=== PATIENT | male | born 1930 | race Caucasian/White ===

== ENCOUNTER 2017-09-13 13:18 | Emergency (ER) | payer MEDICARE, BC ==
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
== END 2017-09-13 15:18 | disposition home or self-care (01) ==
LOC: SCSER 13:18
DX: S00.531A Contusion of lip, initial encounter (principal); E78.5 Hyperlipidemia, unspecified; Z79.899 Other long term (current) drug therapy; Z79.82 Long term (current) use of aspirin; W22.8XXA Striking against or struck by other objects, initial encounter
CPT/HCPCS: 70450; 70486

== ENCOUNTER 2018-01-19 09:44 | Outpatient (CLI) | payer MEDICARE, BC ==
--- NOTE | 2018-01-19 13:04 | ULT ---
RIGHT LOWER EXTREMITY VENOUS DUPLEX ULTRASOUND INCLUDING COLOR AND SPECTRAL DOPPLER IMAGING: HISTORY: An 88-year-old male with a history of right lower extremity edema and pain. Focal area of pain in the medial mid calf. FINDINGS: Exam performed from groin to ankle including visualized greater saphenous, common femoral, superficia l femoral, profunda femoral, popliteal, trifurcation, or posterior tibial vein regions. There is pha sic flow at all levels with normal compressibility and normal augmentation. No intraluminal thrombus . There is a focal area in the medial right calf of abnormal heterogeneous mixed echogenicity measur ing approximately 1.5 x 0.9 x 3.8 cm. This is nonspecific and could represent a hematoma or other co mplicated focal collection. This could conceivably represent a complicated ruptured Fox's or popli teal cyst. Some other type of soft tissue mass, however, cannot be excluded from this study. IMPRESSION: No evidence for deep venous thrombosis. Mixed echogenic not true cystic mass in the medial right steven f corresponding to the area of pain. Focal hematoma or possibly complicated ruptured Fox's or popl iteal cysts are considered likely possibilities. A solid soft tissue mass cannot be totally excluded . If this mass does not improve or resolve in the short term, I would suggest a followup MRI with an d without IV contrast for further assessment of this. POS: [facility]
== END 2018-01-19 09:45 | disposition home or self-care (01) ==
LOC: ULT 09:44
PROVIDERS: ATTEND Pediatrics Pediatric Rheumatology
DX: M79.604 Pain in right leg (principal); M79.89 Other specified soft tissue disorders

== ENCOUNTER 2018-07-05 11:10 | Observation (INO) | payer MEDICARE, BC ==
[2018-07-05] MEDS ORDERED: Ondansetron HCl/PF 4 MG/2 ML Vial IVP PRN (12:45)
[2018-07-05 12:47] VITALS: BMI 22.0
[2018-07-05] MEDS: Diltiazem HCl 125 MG, Admixture Fee 1 EACH in Sodium Chloride 0.9% 100 ML IVPB SCH (13:52)
[2018-07-05] MEDS ORDERED: Enoxaparin Sodium 80 MG/0.8 ML SYRINGE SC SCH (14:00)
[2018-07-05 16:40] LABS: #Eosinphils 0.1 thou/uL (0.0-0.7); #Lymphocytes 1.9 thou/uL (1.20-3.40); #Monocytes 0.6 thou/uL (0.11-0.59); #Neutrophils 3.3 thou/uL (1.40-6.50); %Basophils 0.6 % (0.0-1.0); %Eosinophils 2.2 % (0.0-10.0); %Lymphocytes 31.4 % (21.0-51.0); %Monocytes 10.7 % (0.0-10.0); %Neutrophils 55.1 % (42.0-75.0); Hemoglobin 11.8 g/dL (14.0-18.0); Mean Corpuscular Hemoglobin 29.5 pg (27.0-31.0); Mean Corpuscular Volume 92.4 fL (78.0-98.0); Mean Platelet Volume 8.8 fL (7.4-10.4); Platelet Count 156 thou/uL (130-400); RBC Distribution Width 13.1 % (11.5-14.5)
--- NOTE | 2018-07-05 18:45 | RAD ---
2 VIEWS CHEST: Date: 07/05/18 PROVIDED CLINICAL HISTORY: SVT. FINDINGS: Comparison made with study dated 10/11/14. Cardiac and mediastinal silhouette is within normal limits. Lungs appear clear. No pleural fluid or p neumothorax apparent. Median sternotomy changes are seen. IMPRESSION: No evidence for an acute cardiopulmonary process. POS: [facility]
--- NOTE | 2018-07-05 22:29 | CON ---
DATE OF CONSULTATION: 07/05/2018 REFERRING PHYSICIAN: Shalom Auguste M.D. REASON FOR CONSULTATION: Atrial flutter with rapid ventricular response. HISTORY OF PRESENT ILLNESS: Mr. Vasquez is the patient that has been known to our practice in the p ast for typical atrial flutter, in addition to premature ventricular contractions originating from th e left coronary cusp. He underwent CTI ablation for typical atrial flutter in 03/2016 in addition to PVC ablation at that time. He had a short 1-month course of anticoagulation following ablation and was then taken off oral anticoagulation. He was last evaluated in our clinic in 2015 following his a blation. Earlier today, he was seen by Dr. Auguste in his clinic. He reports that he has been exp eriencing heart racing, palpitations since middle of the night today. He continues to feel some hear t racing and palpitation now as his heart rate sustained at approximately 130-140 beats per minute. He denies any associated chest pain, syncope, near syncope, stroke or stroke-like symptoms. He is cu rrently just on aspirin for stroke prophylaxis. PAST MEDICAL HISTORY: 1. Coronary artery disease, status post 4-vessel bypass grafting performed in 2007. 2. Typical CTI dependent atrial flutter, status post CTI ablation in 03/2016. 3. History of frequent premature ventricular contractions originating from the left coronary cusp st atus post PVC ablation in 03/2016. 4. Hypertension. 5. Dyslipidemia. ALLERGIES: CIPROFLOXACIN, PENICILLIN, STATINS and SULFA ANTIBIOTICS. CURRENT MEDICATIONS: Medication list is currently being requested from the clinic. Patient recalls that he takes aspirin 81 mg daily, but otherwise medication list is not available. FAMILY HISTORY: Negative for sudden cardiac or early onset coronary artery disease. SOCIAL HISTORY: Negative for alcohol, tobacco or illicit drug use. REVIEW OF SYSTEMS: A 12-point review of systems was conducted and is negative except that listed abo ve in the HPI. PHYSICAL EXAMINATION: VITAL SIGNS: Most recent vital signs include temperature 97.8, pulse 134, blood pressure 135/82, res piration is 18, oxygen is 96% on room air. GENERAL: This is a well-appearing, well-groomed, elderly gentleman who appears much younger than his stated age. He is in no apparent distress. He is alert and oriented. His speech is clear. SKIN: Appropriate. NECK: Supple without jugular venous distention. HEART: Rate is rapid and irregular. His PMI is nondisplaced. LUNGS: Clear to auscultation bilaterally without wheezes, crackles or rhonchi. ABDOMEN: Soft, nontender without palpable masses. Hepatojugular reflex is negative. EXTREMITIES: Warm and dry to touch without clubbing, cyanosis or edema. NEUROLOGIC: Nonfocal and grossly intact. DATABASE: Telemetry and EKGs were all personally reviewed reveal what appears to be atypical flutter or coarse atrial fibrillation with ventricular rate of 130-140 beats per minute. Diltiazem drip has been ordered for rate control. LABORATORY DATA: Hematology was reviewed and hemoglobin is slightly low at 11.8, but otherwise unrem arkable. No additional testing has been performed. IMPRESSION: 1. Atrial fibrillation with rapid ventricular rate 130-140 beats per minute, now on diltiazem drip w ith improved rate control with rates in the 80-beat per minute range, symptomatic with heart racing a nd palpitations. 2. Elevated CHADS-VASc score of 4 on the basis of advanced age, vascular disease and hypertension, c urrently only on aspirin for stroke prophylaxis. He has been on Xarelto in the past, which caused no sebleeds, so at this time, we will assess renal function and then recommend initiating Eliquis based on his creatinine. RECOMMENDATIONS: At this point, we find Mr. Vasquez presenting with new atrial arrhythmias. This d oes not appear to be a return of his typical atrial flutter which he has had ablated in the past. EK Gs and telemetry suggest coarse atrial fibrillation and possibly atypical flutter that definitely is coarse atrial fibrillation once his rate slowed on diltiazem. Short term recommendations include ini tiating oral anticoagulation once his kidney function has been resolved as mentioned above. Once his kidney function has been addressed as mentioned above and WILLIAN cardioversion in the near future to re store sinus rhythm and his symptoms. He may require antiarrhythmic therapy in the future for recurre nce and possibly left atrial ablation. Ablation options can be addressed with antiarrhythmic therapy failure and on an outpatient basis. If he does not tolerate his oral anticoagulation and has signif icant bleeding issues, we could discuss Watchman with him. He did only have minor nosebleeds in the past on Xarelto, so we will leave that this will hopefully not be an issue on Eliquis. Thank you for allowing us to participate in the care of this patient. I have discussed this with Dr. Auguste and he is currently arranging for WILLIAN cardioversion tomorrow with Dr. Auguste. The concha ent is n.p.o. after midnight.
[2018-07-06] MEDS: Diltiazem HCl 125 MG, Admixture Fee 1 EACH in Sodium Chloride 0.9% 100 ML IVPB SCH (04:48)
[2018-07-06] MEDS ORDERED: Diltiazem HCl 125 MG, Admixture Fee 1 EACH in Sodium Chloride 0.9% 100 ML IVPB SCH (05:35)
[2018-07-06 05:47] LABS: Anion Gap 11 mmol/L (10-20); BUN (Urea Nitrogen) 18 mg/dL (8.4-25.7); Calc. Creatinine Clearance 53 mL/min (70-130); Calcium 9.6 mg/dL (7.8-10.44); Carbon Dioxide 27 mmol/L (23-31); Chloride 105 mmol/L (98-107); Estimated GFR-MDRD 77; Glucose 89 mg/dL (83-110); Potassium 4.3 mmol/L (3.5-5.1); Sodium 139 mmol/L (136-145)
[2018-07-06] MEDS ORDERED: Dronedarone HCl 400 MG TAB PO SCH ×2 (07:15→21:00)
[2018-07-06 08:09] VITALS: TEMP 97.6
[2018-07-06] MEDS ORDERED: Aspirin 81 mg Enteric Coated Tablet PO SCH (09:00)
[2018-07-06] MEDS ORDERED: Ezetimibe 10 MG TAB PO SCH (09:00)
[2018-07-06] MEDS ORDERED: Apixaban 5 MG TAB PO SCH (09:00)
[2018-07-06] MEDS ORDERED: PROPOFOL 200 MG/20 ML VIAL ONE (09:49)
[2018-07-06] MEDS ORDERED: PROPOFOL 20 ML ONE (10:14)
--- NOTE | 2018-07-06 10:24 | PRG ---
DATE OF SERVICE: 07/06/2018 SUBJECTIVE: Mr. Vasquez seems to be doing well today, but still has palpitations and mild dizziness on diltiazem drip. The heart rate is slightly better, but still rapid. No chest pains. No passing out. No stroke-like symptoms. OBJECTIVE: VITAL SIGNS: Blood pressure is 107/81, heart rate 139, respiration 16, temperature 97.3 degrees Fahrenheit. GENERAL: Alert and oriented man in no apparent distress. NECK: Supple. Jugular veins are distended. CHEST: Coarse without crackles. CARDIOVASCULAR: Heart sounds are irregularly irregular. S1, S2, variable. No murmur or gallop. ABDOMEN: Benign. Bowel sounds positive. EXTREMITIES: Lower extremity without edema, clubbing or cyanosis. DATABASE: The EKG, telemetry shows coarse atrial fibrillation, atypical flutter with rapid ventricular rates. ASSESSMENT AND PLAN: Mr. Vasquez is a pleasant 88-year-old man with a history of prior cavotricuspid isthmus ablation in 2016. Also, PVCs were ablated also at that time. Now he developed atrial arrhythmia, which appears to be atypical flutter/coarse atrial fibrillation. He required diltiazem for rate control, it is still suboptimal. He is not on anticoagulation. PLAN: At this point: 1. Add oral anticoagulation. 2. WILLIAN guided cardioversion planned for today. 3. If recurrent arrhythmia seen after that,consider anti arrhythmic agents, possibly Multaq versus sotalol depending on the lack or absence of structural heart disease. 4. We will follow with you as an outpatient. KEN
[2018-07-06 12:04] VITALS: BP 144/62
[2018-07-06] MEDS ORDERED: Amlodipine 5 MG TAB PO SCH (21:00)
--- NOTE | 2018-07-08 20:56 | EKG ---
Test Reason : Blood Pressure : / mmHG Vent. Rate : 080 BPM Atrial Rate : 084 BPM P-R Int : 000 ms QRS Dur : 084 ms QT Int : 376 ms P-R-T Axes : 000 -21 053 degrees QTc Int : 433 ms Atrial fibrillation Abnormal ECG When compared with ECG of 02-JUL-2008 11:25, Atrial fibrillation has replaced Sinus rhythm Questionable change in QRS axis QT has shortened Confirmed by Newton CHUNG ([id number]) on 07/08/2018 8:56:10 PM Referred By: [facility] Confirmed By:Newton CHUNG
--- NOTE | 2018-07-08 21:10 | EKG ---
Test Reason : Blood Pressure : / mmHG Vent. Rate : 110 BPM Atrial Rate : 104 BPM P-R Int : 000 ms QRS Dur : 084 ms QT Int : 294 ms P-R-T Axes : 000 -23 113 degrees QTc Int : 397 ms Atrial fibrillation with rapid ventricular response Nonspecific ST and T wave abnormality , probably digitalis effect Abnormal ECG When compared with ECG of 06-JUL-2018 07:16, (Unconfirmed) No significant change was found Confirmed by Newton CHUNG ([id number]) on 07/08/2018 9:09:57 PM Referred By: LARRY Confirmed By:Newton CHUNG
--- NOTE | 2018-07-08 21:10 | EKG ---
Test Reason : Blood Pressure : / mmHG Vent. Rate : 091 BPM Atrial Rate : 340 BPM P-R Int : 000 ms QRS Dur : 084 ms QT Int : 342 ms P-R-T Axes : 000 -28 076 degrees QTc Int : 420 ms Atrial fibrillation Abnormal ECG When compared with ECG of 05-JUL-2018 14:43, (Unconfirmed) No significant change was found Confirmed by Newton CHUNG ([id number]) on 07/08/2018 9:09:51 PM Referred By: LARRY Confirmed By:Newton CHUNG
--- NOTE | 2018-07-08 21:14 | EKG ---
Test Reason : POST CARDIOVERSION Blood Pressure : / mmHG Vent. Rate : 063 BPM Atrial Rate : 063 BPM P-R Int : 214 ms QRS Dur : 084 ms QT Int : 418 ms P-R-T Axes : 068 -22 000 degrees QTc Int : 427 ms Sinus rhythm with marked sinus arrhythmia with 1st degree A-V block Otherwise normal ECG When compared with ECG of 06-JUL-2018 07:17, (Unconfirmed) Sinus rhythm has replaced Atrial fibrillation Vent. rate has decreased BY [address] no longer depressed in Anterior leads Nonspecific T wave abnormality now evident in Inferior leads Confirmed by Newton CHUNG ([id number]) on 07/08/2018 9:13:47 PM Referred By: LARRY Confirmed By:Newton CHUNG
--- NOTE | 2018-07-09 14:47 | DIS ---
DATE OF ADMISSION: 07/05/2018 DATE OF DISCHARGE: 07/06/2018 DISCHARGE DIAGNOSIS: Atrial fibrillation. 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 He was found to have new onset atrial fibrillation. He has a previous his tory of underlying coronary artery disease. His heart rate was in the 120s and 130s. He was subsequently admitted. He was placed on IV Cardizem. There was difficulty in controlling his rate overnight. We started to proceed with cardioversion. This was successfully performed on 07/06. He underwent WILLIAN and cardioversion at 200 joules. He was discharged in stable condition. DISCHARGE MEDICATIONS: Zetia 10 q.a.m., aspirin 81 daily, amlodipine 5 daily, abciximab 5 mg b.i.d., Multaq 400 b.i.d. and metoprolol 25 daily. CONDITION AT DISCHARGE: Stable.
--- NOTE | 2018-07-16 09:02 | ECHO ---
CARDIOLOGY PROCEDURE NOTE: Date: 07/06/18 PROCEDURE: Transesophageal echocardiogram. INDICATION FOR PROCEDURE: Atrial fibrillation. PROCEDURE IN DETAIL: I discussed the procedure in full detail with Mr. Vasquez. Risks of the procedure include, but are n ot limited to, the following: damage to teeth, mouth, back of the esophagus. All questions were answe red. WILLIAN performed successfully under propofol sedation. The probe passed easily into the esophagus. FINDINGS: Overall LVEF estimated at 50-55%. Left atrial appendage well visualized with no thrombus present. IMPRESSION: No thrombus present within the left atrial appendage.
--- NOTE | 2018-07-16 09:05 | OP ---
CARDIOLOGY PROCEDURE NOTE: Date: 07/06/18 PROCEDURE: Cardioversion. PREPROCEDURE DIAGNOSIS: Atrial fibrillation. POSTPROCEDURE DIAGNOSIS: Sinus rhythm. PROCEDURE IN DETAIL: Patient was consented for the procedure. I discussed the procedure in full detail. The risks of the p rocedure include, but are not limited to, the following: Stroke, need for repeat cardioversion, fail ed cardioversion as well as burning of skin. All questions were answered. Patient underwent successful synchronized cardioversion under propofol sedation at 150 and 200 joules . IMPRESSION: Successful synchronized cardioversion at 200 joules.
== END 2018-07-06 15:28 | disposition home or self-care (01) ==
LOC: 2SW 11:25
PROVIDERS: ADMIT Internal Medicine Cardiovascular Disease; ATTEND Internal Medicine Cardiovascular Disease
PROC: 5A2204Z Restoration of Cardiac Rhythm, Single (ICD-10-PCS; principal; 2018-07-06)
PROC: B24BZZ4 Ultrasonography of Heart with Aorta, Transesophageal (ICD-10-PCS; 2018-07-06)
DX: I48.91 Unspecified atrial fibrillation (principal); I47.2 Ventricular tachycardia; I48.4 Atypical atrial flutter; I10 Essential (primary) hypertension; E78.5 Hyperlipidemia, unspecified; I25.10 Atherosclerotic heart disease of native coronary artery without angina pectoris; Z79.82 Long term (current) use of aspirin; Z79.899 Other long term (current) drug therapy; Z88.0 Allergy status to penicillin; Z88.1 Allergy status to other antibiotic agents; Z88.2 Allergy status to sulfonamides; Z88.8 Allergy status to other drugs, medicaments and biological substances; Z95.1 Presence of aortocoronary bypass graft
CPT/HCPCS: 71046; 80048; 85025; 92960; 93005 ×3; 93312; 96365; 96366 ×2; 96372; 96376; G0378; G0379; 36415; 93010; J1650; J2704; J7050

== ENCOUNTER 2019-02-14 06:27 | Day surgery (SDC) | payer MEDICARE, BC ==
[2019-02-13 08:54] VITALS: BMI 22.8
[2019-02-14] MEDS ORDERED: Lidocaine 1% PF 5 ML VIAL ONE ×2 (06:55→16:26)
[2019-02-14] MEDS ORDERED: PROPOFOL 20 ML ONE (06:55)
[2019-02-14] MEDS ORDERED: PROPOFOL 200 MG/20 ML VIAL ONE (16:26)
--- NOTE | 2019-02-14 19:11 | EKG ---
Test Reason : POT CARDIOVERSION Blood Pressure : / mmHG Vent. Rate : 046 BPM Atrial Rate : 077 BPM P-R Int : 000 ms QRS Dur : 082 ms QT Int : 442 ms P-R-T Axes : 000 -30 260 degrees QTc Int : 386 ms marked sinus bradycardia with sinus pauses Left axis deviation Abnormal ECG When compared with ECG of 06-JUL-2018 11:38, Atrial fibrillation has replaced Sinus rhythm T wave inversion now evident in Inferior leads T wave inversion now evident in Anterolateral leads Confirmed by DR. Yaneth LOREDO ([id number]) on 02/14/2019 7:10:34 PM Referred By: LARRY Confirmed By:DR. Yaneth LOREDO
--- NOTE | 2019-02-14 19:13 | EKG ---
Test Reason : POT CARDIOVERSION Blood Pressure : / mmHG Vent. Rate : 056 BPM Atrial Rate : 042 BPM P-R Int : 000 ms QRS Dur : 082 ms QT Int : 416 ms P-R-T Axes : 000 -31 249 degrees QTc Int : 401 ms marked sinus bradycardia sinus arrhythmia and sinus pauses Left axis deviation Abnormal ECG When compared with ECG of 14-FEB-2019 08:49, (Unconfirmed) No significant change was found Confirmed by DR. Yaneth LOREDO ([id number]) on 02/14/2019 7:12:48 PM Referred By: LARRY Confirmed By:DR. Yaneth LOREDO
--- NOTE | 2019-02-15 13:24 | OP ---
DATE OF PROCEDURE: 02/14/2019 PREPROCEDURE DIAGNOSIS: Atrial fibrillation. POSTPROCEDURE DIAGNOSIS: Sinus rhythm. PROCEDURE PERFORMED: Synchronized cardioversion. The patient was consented for the procedure. Propofol used for conscious sedation. FINDINGS: The patient underwent successful synchronized cardioversion of 150 joules. IMPRESSION: Successful synchronized cardioversion at 150 joules. Job ID: [id number]
== END 2019-02-14 10:40 | disposition home or self-care (01) ==
LOC: CCL 06:27
PROVIDERS: ATTEND Internal Medicine Cardiovascular Disease
PROC: 5A2204Z Restoration of Cardiac Rhythm, Single (ICD-10-PCS; principal; 2019-02-14)
DX: I48.0 Paroxysmal atrial fibrillation (principal); I48.92 Unspecified atrial flutter; I10 Essential (primary) hypertension; I25.10 Atherosclerotic heart disease of native coronary artery without angina pectoris; Z95.1 Presence of aortocoronary bypass graft; Z87.891 Personal history of nicotine dependence; Z88.1 Allergy status to other antibiotic agents; Z88.0 Allergy status to penicillin; Z88.2 Allergy status to sulfonamides; Z88.8 Allergy status to other drugs, medicaments and biological substances; Z79.01 Long term (current) use of anticoagulants; Z79.82 Long term (current) use of aspirin; Z79.899 Other long term (current) drug therapy
CPT/HCPCS: 92960; 93005; 93010; J2001; J2704

== ENCOUNTER 2019-04-05 14:04 | Outpatient (CLI) | payer MEDICARE, BC ==
--- NOTE | 2019-04-05 15:31 | CT ---
EXAM: CT Abdomen Pelvis W WO con PROVIDED CLINICAL HISTORY: Hematuria for 4 days. COMPARISON: None FINDINGS: There is linear bibasilar densities likely due to atelectasis and/or mild scarring. Median sternotomy wires are seen. The heart is mildly enlarged. Vascular calcifications are seen in the coronary arteries as well as in volving the abdominal aorta and iliac arteries. Multiple subcentimeter too small to characterize hypodense lesions are seen in each lobe of the liver . Largest hypodense lesion is seen in the left hepatic lobe measuring 2.2 cm which does demonstrate fluid attenuation. Findings are likely attributable to multiple hepatic cysts, but cystic metastatic disease cannot be entirely excluded based on this exam. The gallbladder is decompressed, but a gallbladder calculus is present. There are subcentimeter too small to characterize hypodense lesions in each kidney with larger hypode nse lesions also seen in each kidney demonstrating attenuation coefficients most compatible with cysts. Largest cyst inferior pole left kidney measures 1.7 cm with the largest cyst in the inferior p ole right kidney measuring 1.6 cm. No enhancing renal mass is visualized. No renal or ureteral calculi are seen bilaterally, and there is no hydronephrosis. No filling defect is seen within the renal collecting systems or either ureter on this exam. The urinary bladder is partially distended and has a grossly normal CT appearance. The spleen, pancreas, and bilateral adrenal glands demonstrate a normal CT appearance. No free fluid, fluid collection, or lymphadenopathy is seen in the abdomen or pelvis. Loops of small bowel are normal in caliber. The appendix is visualized and normal in caliber. Prostate gland is heterogeneous in appearance. There is a 1.3 cm low-density focus is present in the most inferior aspect right prostate gland and a periurethral location. Multilevel degenerative changes are seen in the spine. IMPRESSION: 1. Subcentimeter too small to characterize hypodense bilateral renal lesions in addition to bilateral renal cysts. No enhancing renal lesion is seen in either kidney. 2. No renal or ureteral calculi are seen bilaterally, and there is no hydronephrosis. 3. Subcentimeter too small to characterize hypodense lesions in each lobe of the liver with slightly larger hypodense lesions in the left hepatic lobe demonstrating attenuation coefficients compatible with cysts. Findings may be related to multiple hepatic cysts. However, given multiplicity, cystic me tastatic disease cannot be entirely excluded based on this exam especially in a patient with history of neoplasm. 4. Low-density structure in a right periurethral location at the level of the inferior aspect prostat e gland or just inferior to the prostate gland. This may represent a urethral diverticulum or periurethral cyst. This is difficult to further delineate on this exam. MRI pelvis may be helpful for further evaluation.
== END 2019-04-05 14:05 | disposition home or self-care (01) ==
LOC: SCSCT 14:04
PROVIDERS: ATTEND Urology
DX: R31.0 Gross hematuria (principal); N28.1 Cyst of kidney, acquired; N28.89 Other specified disorders of kidney and ureter; K76.9 Liver disease, unspecified
CPT/HCPCS: 74178; 82565

== ENCOUNTER 2019-06-30 04:24 | Inpatient (IN) | payer MEDICARE, BC ==
[2019-06-30] MEDS ORDERED: Diltiazem 125 MG/25 ML ONE (04:43)
[2019-06-30 04:56] LABS: #Lymphocytes 1.6 thou/uL (1.20-3.40); #Monocytes 0.8 thou/uL (0.11-0.59); #Neutrophils 5.8 thou/uL (1.40-6.50); %Basophils 0.4 % (0.0-1.0); %Lymphocytes 19.7 % (21.0-51.0); %Monocytes 9.9 % (0.0-10.0); %Neutrophils 70.1 % (42.0-75.0); Hemoglobin 12.3 g/dL (14.0-18.0); Mean Corpuscular Hemoglobin 28.3 pg (27.0-31.0); Mean Corpuscular Volume 88.5 fL (78.0-98.0); Mean Platelet Volume 9.4 fL (7.4-10.4); Platelet Count 195 thou/uL (130-400); RBC Distribution Width 14.7 % (11.5-14.5); Red Blood Cell (RBC) Count 4.35 mill/uL (4.70-6.10); White Blood Cell (WBC) Count 8.2 thou/uL (4.8-10.8)
[2019-06-30 04:59] LABS: INR-International Normal Ratio 1.7; PTT 31.9 SEC (22.9-36.1); Prothrombin Time 19.8 SEC (12.0-14.7)
[2019-06-30] MEDS ORDERED: Aspirin Chewable 81 MG TAB ONE (05:02)
[2019-06-30 05:08] LABS: ALT (SGPT) 23 U/L (8-55); AST (SGOT) 25 U/L (5-34); Albumin 3.7 g/dL (3.4-4.8); Alkaline Phosphatase 72 U/L (40-110); Anion Gap 18 mmol/L (10-20); BUN (Urea Nitrogen) 29 mg/dL (8.4-25.7); Bilirubin, Total 0.7 mg/dL (0.2-1.2); CK (CPK) 96 U/L (30-200); Calc. Creatinine Clearance 0 mL/min (70-130); Calcium 10.2 mg/dL (7.8-10.44); Carbon Dioxide 26 mmol/L (23-31); Chloride 98 mmol/L (98-107); Estimated GFR-MDRD 44; Globulin 5.5 g/dL (2.4-3.5); Glucose 127 mg/dL (83-110); Potassium 4.7 mmol/L (3.5-5.1); Protein, Total 9.2 g/dL (5.8-8.1); Sodium 137 mmol/L (136-145)
[2019-06-30 06:35] VITALS: BMI 24.0
[2019-06-30] MEDS ORDERED: Acetaminophen 325 MG TAB PO PRN (06:37)
[2019-06-30] MEDS ORDERED: Ondansetron ODT 4 MG TAB SL PRN (06:37)
[2019-06-30] MEDS ORDERED: Ondansetron PF 4 MG/2 ML Vial IVP PRN ×2 (06:37→07:05)
[2019-06-30] MEDS ORDERED: Diltiazem HCl 125 MG, Admixture Fee 1 EACH in Sodium Chloride 0.9% 100 ML IVPB SCH (06:45)
[2019-06-30] MEDS ORDERED: Loperamide HCl 2 MG CAP PO PRN (07:05)
[2019-06-30] MEDS ORDERED: Senokot S 8.6-50 MG TAB PO PRN (07:05)
[2019-06-30] MEDS ORDERED: Calcium Carbonate 500 MG ChewTAB PO PRN (07:05)
[2019-06-30] MEDS ORDERED: Zolpidem Tartrate 5 MG TAB PO PRN (07:05)
[2019-06-30] MEDS ORDERED: Labetalol HCl 100 MG/20 ML VIAL SLOW IVP PRN (07:05)
[2019-06-30] MEDS ORDERED: Bisacodyl 10 MG SUPP PR PRN (07:05)
[2019-06-30] MEDS ORDERED: Ondansetron ODT 4 MG TAB PO PRN (07:05)
[2019-06-30] MEDS ORDERED: HYDROcodone/Acetaminophen 5/325 mg Tablet PO PRN (07:05)
[2019-06-30] MEDS ORDERED: Cepastat Lozenges 1 LOZ PO PRN (07:05)
[2019-06-30] MEDS ORDERED: Sodium Chloride 0.65% Nasal 44 ML BOT EA NARE PRN (07:05)
[2019-06-30] MEDS ORDERED: Diabetic Tussin 200 MG/10 ML UDCUP PO PRN (07:05)
[2019-06-30] MEDS ORDERED: Artificial Tears 18 DROP/0.9 ML EA EYE PRN (07:05)
[2019-06-30] MEDS ORDERED: Loratadine 10 MG TAB PO PRN (07:05)
--- NOTE | 2019-06-30 07:59 | RAD ---
CHEST ONE VIEW: INDICATIONS: Chest pain. COMPARISON: Prior exam dated 07/05/2018 FINDINGS: There is cardiomegaly, pulmonary vascular congestion and small bilateral pleural effusions. No pneum othorax is evident. No acute osseous abnormality is evident. IMPRESSION: Findings suggesting mild congestive heart failure. POS: [facility]
[2019-06-30] MEDS: Apixaban 5 MG TAB PO SCH ×2 (09:36→20:29)
[2019-06-30] MEDS: Aspirin 81 mg Enteric Coated Tablet PO SCH (09:36)
[2019-06-30] MEDS: Famotidine 20 MG TAB PO SCH (09:36)
--- NOTE | 2019-06-30 11:09 | HP ---
PRIMARY CARE PHYSICIAN: Renae Moore MD PRIMARY ASPHALT RAKER: Shalom Auguste MD REASON FOR ADMISSION: Acute atrial fibrillation with rapid ventricular response. HISTORY OF PRESENT ILLNESS: An 89-year-old male, who has history of atrial fibrillation. He is on chronic anticoagulation therapy. The patient also had a cardioversion in March 2019. The patient followed up with Cardiology after cardioversion and the patient had a medication dose of Toprol-XL increased from 25 to 50 mg recently. Last night around 9:00 p.m., the patient was experiencing dizziness, palpitation, but he waited up until 4:30 a.m. He was not able to go to sleep. He was feeling shortness of breath, dizziness, disoriented and finally he agreed to come to emergency room for evaluation. He went to [facility] Emergency Room, where he was found with atrial fibrillation with rapid ventricular response. He was given Cardizem bolus, and Cardizem drip was started. His chest x-ray was suggestive of congestive heart failure and his BNP was also elevated. The patient reports that few days ago, he was having acute bronchitis and his primary care physician treated him with antibiotic therapy as well as steroid, which he finished yesterday. The patient still has cough productive of scant amount of sputum, but he does not have any fever. He occasionally feels wheezing. He does report dyspnea on exertion lately. He denies any orthopnea or PND or lower extremity swelling. The patient denies any fever or chills. He denies any diabetes history. He denies any previous history of stroke. REVIEW OF SYSTEMS: All review of systems reviewed with the patient and negative except as mentioned in the HPI. PAST MEDICAL HISTORY: Nephrolithiasis; coronary artery disease, required CABG; hypertension; paroxysmal atrial fibrillation; atrial flutter; hypothyroidism; and chronic anticoagulation. PAST SURGICAL HISTORY: CABG in 2008, transesophageal echocardiography and cardioversion in 2018 as well as in March 2019, and radiofrequency ablation for atrial flutter. PAST PSYCHIATRIC HISTORY: Reviewed and negative. FAMILY HISTORY: Positive for hypertension, stroke to his father. SOCIAL HISTORY: The patient is , lives at home with his . No history of tobacco, alcohol, or illicit drug abuse. ALLERGIES: THE PATIENT IS ALLERGIC TO PENICILLIN AND SULFA DRUGS. THE PATIENT IS ALSO NOT TOLERATING STATIN THERAPY. CURRENT HOME MEDICATIONS: 1. Aspirin 81 mg p.o. daily. 2. Eliquis 5 mg p.o. b.i.d. 3. Synthroid 50 mcg p.o. daily. 4. Toprol-XL 50 mg p.o. daily. EMERGENCY ROOM COURSE: The patient has received aspirin 324 mg, Cardizem bolus and Cardizem drip was started. PHYSICAL EXAMINATION: VITAL SIGNS: On arrival; blood pressure 175/85, pulse 145 and irregular, respiratory rate 20, temperature 97.8, and saturation 98% on room air. Weight 162 pounds. GENERAL: The patient is currently alert, awake, slightly hard of hearing. No obvious acute distress. HEENT: Head; normocephalic, atraumatic. Eyes; pupils are round and reactive to light. Extraocular muscle intact. ENT; oropharynx within normal limits. Moist mucous membranes. No oral lesion. No pharyngeal erythema. No exudate. NECK: Supple. No obvious JVD. No thyromegaly. No meningeal signs of irritation. LUNGS: Bilateral coarse breath sounds with few basal rales noted. CARDIAC: S1 and S2. Irregularly irregular. No murmur elicited. No gallop. No rub. ABDOMEN: Soft. Bowel sounds present. Nontender. Nondistended. No organomegaly. No mass. No suprapubic tenderness. BACK: Unremarkable. No CVA tenderness. EXTREMITIES: Upper extremities; passive movement of all joints are normal. Lower extremities; bilateral trace lower extremity pitting edema noted. Good distal pulsation. SKIN: No skin rash. HEMATOLOGICAL SYSTEM: No lymphadenopathy. NEUROLOGIC: Nonfocal examination. SIGNIFICANT LABORATORY DATA: EKG showing atrial fibrillation with rapid ventricular response. Left axis deviation. Chest x-ray showing pulmonary vascular congestion. CBC; WBC 8.2, hemoglobin 12.3, and platelet 195. INR 1.7. BMP; sodium 137, potassium 4.7, chloride 98, carbon dioxide 26, BUN 29, creatinine 1.49, glucose 127, and calcium 10.2. LFT; AST 25, ALT 23, alkaline phosphatase 72, albumin 3.7. BNP 1131. Troponin negative, less than 0.010. CK 96. ASSESSMENT AND PLAN: 1. Paroxysmal atrial fibrillation with rapid ventricular response. The patient still in atrial fibrillation with rapid ventricular response. We will continue Cardizem drip at 5 mg/hour. Cardiology will be consulted. We will obtain echocardiography for structural and functional evaluation. We will also resume Toprol-XL 50 mg p.o. daily. We will also continue chronic anticoagulation with Eliquis 5 mg p.o. b.i.d. If the patient remains in atrial fibrillation, then he may need cardioversion. Further medication adjustment will defer to Cardiology. Cardiology will be consulted. 2. Acute diastolic congestive heart failure. This patient has history suggestive of congestive heart failure. He has dyspnea on exertion, lower extremity edema as well as elevated BNP and pulmonary vascular congestion on chest x-ray. We are obtaining echocardiography. We will continue with Lasix 20 mg IV b.i.d. and continue Toprol-XL 50 mg p.o. daily. We will repeat labs tomorrow. We will monitor renal function, input and output chart, and electrolytes. 3. Chronic kidney disease, stage 3. We will monitor renal function. We will repeat BMP tomorrow. 4. Hypothyroidism. We will continue levothyroxine 50 mcg p.o. daily and we will check TSH tomorrow. 5. Coronary artery disease with history of coronary artery bypass grafting. Continue aspirin 81 mg p.o. daily, Toprol-XL 50 mg p.o. daily. The patient is allergic to statin therapy. 6. Deep venous thrombosis prophylaxis. The patient is already on chronic anticoagulation therapy with Eliquis. 7. Gastrointestinal prophylaxis, Pepcid 20 mg p.o. daily. CODE STATUS: I spoke with the patient and the patient's family member. The patient wants to be a full code. The patient's is surrogate decision maker. DISPOSITION PLAN: Based on clinical course, we are expecting the patient's stay in hospital more than 2 midnights. Plan of care discussed with the patient and family member at bedside. Job ID: [id number]
--- NOTE | 2019-06-30 12:02 | CON ---
DATE OF CONSULTATION: 06/30/2019 REASON FOR CONSULTATION: Atrial fibrillation with RVR. PRIMARY COPPER PLATER: Shalmo Auguste MD HISTORY OF PRESENT ILLNESS: Mr. Vasquez is a pleasant 89-year-old black gentleman, who comes to the hospital for atrial fibrillation with RVR and what appears to be orthopnea and PND. He has a history of atrial fibrillation. He underwent cardioversion last year in July and he maintained sinus rhythm on amiodarone until November of this year when he converted back into atrial fibrillation. It was opted to do rate control at that time, so he was started on metoprolol. He came to see Dr. Molina Hoskins's PA, about 3 weeks ago as he was having a bronchitis at that time. He was having episodes of tachycardia, which were brief, so a monitor was ordered. He states that this bronchitis just continue to make things worse and got to the point where last night he could not lay down without getting really short winded. He felt air hunger. He had to sit up to breathe and he just could not sleep. He decided to come in for this. He has been given Lasix already and he has diuresed minimally for now. His heart rate is in the 120s. He is on a Cardizem drip at 5 currently. PAST MEDICAL HISTORY: 1. Persistent atrial fibrillation. 2. Coronary artery disease, status post four-vessel bypass in 2007. 3. Flutter ablation in 2015. 4. History of frequent PVCs, status post PVC ablation in 2016. 5. Hypertension. 6. Hyperlipidemia. OUTPATIENT MEDICATIONS: 1. Metoprolol succinate 50 mg a day. 2. Synthroid 50 mcg a day. 3. Aspirin 81 a day. 4. Eliquis 2.5 mg b.i.d. ALLERGIES: 1. CIPROFLOXACIN. 2. PENICILLIN. 3. STATINS. 4. SULFA DRUGS. FAMILY HISTORY: No early coronary artery disease. SOCIAL HISTORY: No alcohol, tobacco, or drugs. REVIEW OF SYSTEMS: A 12-point review of systems was done and was all negative unless stated in the history of present illness. PHYSICAL EXAMINATION: VITAL SIGNS: Temperature 97.4, pulse 120s, respiratory rate 20, saturating 99% on room air, blood pressure 130/92. GENERAL: Awake, alert, oriented x3. No distress. HEENT: Normocephalic and atraumatic. NECK: Supple. LUNGS: Clear. CARDIOVASCULAR: S1 and S2. Irregularly irregular. Heart rate in the 120s. There is a soft grade 2/6 systolic murmur at the right upper sternal border. ABDOMEN: Soft. Positive bowel sounds. EXTREMITIES: No edema. SKIN: Warm and dry. LABORATORY DATA: Shows a CBC with a white count of 8.2, hemoglobin 12.3, hematocrit 38, and platelet count of 195. Coags were reviewed. Chemistries were reviewed and unremarkable except for BUN of 29, creatinine 1.49, GFR of 44, and glucose of 127. BNP was 1131. Troponin was negative x1. Albumin of 3.7. EKG was reviewed, atrial fibrillation with RVR. ASSESSMENT: 1. Atrial fibrillation with rapid ventricular response. Persistent atrial fibrillation. 2. Coronary artery disease, status post coronary artery bypass grafting in the distant past, stable. No acute coronary syndrome. 3. Hypertension. 4. Hyperlipidemia. 5. Chronic anticoagulation with Eliquis. PLAN: 1. Continue rate control. He has been attempted on rhythm control in the past, but this was unsuccessful. Not interested in an ablation at this time given his age. He may consider in the near future. However, at this point, we will do rate control. 2. Continue Eliquis for stroke prophylaxis. 3. We will increase his diltiazem drip. 4. We spoke about possibly starting an amiodarone drip, but he had a very tough time with amiodarone in the past, so he would like to stay away from this medication. 5. We will up titrate the diltiazem and the p.o. beta-suzanna to try to achieve a better rate control. 6. We will give IV Lasix at a slightly higher dose as he most likely has a little bit of fluid overload. Thank you for letting us to participate in the care of your patient. Dr. Auguste is the primary public welfare director and will follow up in the morning. Job ID: [id number]
[2019-06-30 13:37] LABS: Bilirubin Negative (Negative); Blood, Urine Negative (Negative); Clarity Clear (Clear); Glucose, Urine (Dipstick) Normal (Negative); Leukocyte 25 Leu/uL (Negative); Nitrite Negative (Negative); Protein, Urine (Dipstick) 10 mg/dL (Neg-Trace); Urobilinogen Normal mg/dL (Less than 2)
[2019-06-30 13:43] LABS: Bacteria/HPF None Seen HPF (None Seen); RBC/HPF None Seen HPF (0-3); Squamous Epithelial 0-3 HPF (0-3); WBC/HPF None Seen HPF (0-3)
[2019-06-30] MEDS: Furosemide 20 MG/2 ML VIAL SLOW IVP SCH (14:05)
[2019-06-30] MEDS: Diltiazem 125 MG in Sodium Chloride 0.9% 100 ML IVPB SCH (18:36)
[2019-07-01] MEDS: Diltiazem 125 MG in Sodium Chloride 0.9% 100 ML IVPB SCH (03:53)
[2019-07-01 05:01] LABS: #Eosinphils 0.1 thou/uL (0.0-0.7); #Lymphocytes 1.3 thou/uL (1.20-3.40); %Basophils 0.6 % (0.0-1.0); %Eosinophils 1.8 % (0.0-10.0); %Lymphocytes 17.1 % (21.0-51.0); %Monocytes 13.1 % (0.0-10.0); %Neutrophils 67.3 % (42.0-75.0); Mean Corpuscular HGB CONC 31.9 g/dL (32.0-36.0); Mean Corpuscular Hemoglobin 28.7 pg (27.0-31.0); Mean Corpuscular Volume 90.1 fL (78.0-98.0); Mean Platelet Volume 8.8 fL (7.4-10.4); Platelet Count 147 thou/uL (130-400); RBC Distribution Width 14.2 % (11.5-14.5); Red Blood Cell (RBC) Count 3.85 mill/uL (4.70-6.10); White Blood Cell (WBC) Count 7.4 thou/uL (4.8-10.8)
[2019-07-01 05:23] LABS: ALT (SGPT) 19 U/L (8-55); AST (SGOT) 21 U/L (5-34); Albumin 3.3 g/dL (3.4-4.8); Alkaline Phosphatase 63 U/L (40-110); Anion Gap 11 mmol/L (10-20); BUN (Urea Nitrogen) 25 mg/dL (8.4-25.7); Bilirubin, Total 0.9 mg/dL (0.2-1.2); Calc. Creatinine Clearance 40 mL/min (70-130); Calcium 9.2 mg/dL (7.8-10.44); Carbon Dioxide 30 mmol/L (23-31); Chloride 100 mmol/L (98-107); Estimated GFR-MDRD 51; Globulin 4.5 g/dL (2.4-3.5); Glucose 94 mg/dL (83-110); Magnesium 2.3 mg/dL (1.6-2.6); Potassium 4.1 mmol/L (3.5-5.1); Protein, Total 7.8 g/dL (5.8-8.1); Sodium 137 mmol/L (136-145); Uric Acid 5.9 mg/dL (3.5-7.2)
[2019-07-01] MEDS: Levothyroxine Sodium 50 MCG TAB PO SCH (05:43)
[2019-07-01] MEDS: Furosemide 20 MG/2 ML VIAL SLOW IVP SCH ×2 (05:43→14:52)
--- NOTE | 2019-07-01 07:51 | PDOC.CPN ---
- Subjective Date: 07/01/19 Time: 17:50 Interval history: increase HR noted. On IV CCB and BB - Objective Allergies/Adverse Reactions: Allergies Allergy/AdvReac Type Severity Reaction Status Date / Time ciprofloxacin [From Cipro] Allergy Verified 06/30/19 06:38 Penicillins Allergy Verified 06/30/19 06:38 Ifqchkl-Aod-Spi Reductase Allergy Verified 06/30/19 06:38 Inhibitor Sulfa (Sulfonamide Allergy Verified 06/30/19 06:38 Antibiotics) Visit Medications: Current Medications Acetaminophen (Tylenol) 650 mg PO Q4H PRN PRN Reason: Headache/Fever/Mild Pain (1-3) Hydrocodone Bitart/Acetaminophen ([place] 5/325) 1 tab PO Q4H PRN PRN Reason: Moderate Pain (4-6) Apixaban (Eliquis) 5 mg PO BID [facility] Last Admin: 06/30/19 20:29 Dose: 5 mg Artificial Tears (Tears Naturale) 2 drop EA EYE PRN PRN PRN Reason: Dry Eyes Aspirin (Ecotrin) 81 mg PO DAILY [facility] Last Admin: 06/30/19 09:36 Dose: 81 mg Bisacodyl (Dulcolax) 10 mg [place] DAILYPRN PRN PRN Reason: Constipation Calcium Carbonate (Tums) 1,000 mg PO Q4H PRN PRN Reason: Heartburn or Indigestion Famotidine (Pepcid) 20 mg PO DAILY [facility] Last Admin: 06/30/19 09:36 Dose: 20 mg Furosemide (Lasix) 20 mg SLOW IVP 0600,1400 [facility] Last Admin: 07/01/19 05:43 Dose: 20 mg Guaifenesin (Robitussin Sf) 200 mg PO Q4H PRN PRN Reason: Cough Diltiazem HCl 125 mg/ Sodium (Chloride) 125 mls @ 10 mls/hr IVPB INF [facility]; Protocol Last Admin: 07/01/19 03:53 Dose: 125 mls Labetalol HCl (Normodyne) 20 mg SLOW IVP Q4H PRN PRN Reason: SBP > 180 and HR >/= 70 Levothyroxine Sodium (Synthroid) 50 mcg PO 0600 [facility] Last Admin: 07/01/19 05:43 Dose: 50 mcg Loperamide HCl (Imodium) 2 mg PO PRN PRN PRN Reason: Diarrhea/Loose Stools Loratadine (Claritin) 10 mg PO DAILYPRN PRN PRN Reason: Sinus Symptoms Metoprolol Succinate (Toprol Xl) 50 mg PO DAILY [facility] Last Admin: 06/30/19 09:37 Dose: 50 mg Ondansetron HCl (Zofran Odt) 4 mg PO Q6H PRN PRN Reason: Nausea/Vomiting Ondansetron HCl (Zofran) 4 mg IVP Q6H PRN PRN Reason: Nausea/Vomiting Senna/Docusate Sodium (Senokot S) 2 tab PO BID PRN PRN Reason: Constipation Sodium Chloride ([place] 0.65%) 0 ml EA NARE QIDPRN PRN PRN Reason: Nasal Congestion Throat Lozenges (Cepastat Lozenges) 1 frank PO Q2H PRN PRN Reason: Sore Throat Zolpidem Tartrate (Ambien) 5 mg PO HSPRN PRN PRN Reason: Insomnia Vital Signs & Weight: Vital Signs Temp Pulse Ox 07/01/19 07:40 100 07/01/19 07:31 98.2 F 07/01/19 03:00 98.1 F 06/30/19 20:00 100 Weight 159 lb 6.307 oz - Physical Exam General: alert & oriented x3 HEENT: mucus membranes moist Cardiac: no murmur, irregularly regular Lungs: clear to auscultation, normal exam, no rhonchi Abdomen: soft Skin: clear - Labs Result Diagrams: 07/01/19 04:30 07/01/19 04:29 Troponin/CKMB Troponin I Less than 0.010 ng/mL (< 0.028) 06/30/19 04:45 - Assessment/Plan Assessment/Plan: CAD afib s/p CABG Recent bronchitis REC 07/01 Rate control for now Pt not interested in repeat ablation or amiodarone Would like rate control I did state givent he amt of IV CCB that may be difficult On IV CCB, low dose BB Add PO CCB Continue NOAC
[2019-07-01] MEDS: Aspirin 81 mg Enteric Coated Tablet PO SCH (08:31)
[2019-07-01] MEDS: Apixaban 5 MG TAB PO SCH ×2 (08:31→20:21)
[2019-07-01] MEDS: Famotidine 20 MG TAB PO SCH (08:31)
--- NOTE | 2019-07-01 11:01 | PDOC.HOSPP ---
- Subjective Encounter Date: 07/01/19 Encounter Time: 09:40 Subjective: Patient seen and examined. No new complaints. No overnight events still rate is not well controlled, has less dyspnea - Objective Vital Signs & Weight: Vital Signs (12 hours) Temp Pulse Ox 07/01/19 07:40 100 07/01/19 07:31 98.2 F 07/01/19 03:00 98.1 F Weight Weight 159 lb 6.307 oz Most Recent Monitor Data Heart Rate from ECG 99 NIBP 110/81 NIBP BP-Mean 90 Respiration from ECG 16 SpO2 99 I&O: 06/30/19 07/01/19 07/02/19 06:59 06:59 06:59 Intake Total 1616 Output Total 9821 425 Balance -3419 425 Result Diagrams: 07/01/19 04:30 07/01/19 04:29 Radiology Reviewed by me: Yes (echo report noted) EKG Reviewed by me: Yes (afib) Hospitalist ROS - Review of Systems Eyes: denies: pain, vision change, conjunctivae inflammation, eyelid inflammation, redness, other ENT: denies: ear pain, ear discharge, nose pain, nose discharge, nose congestion , mouth pain, mouth swelling, throat pain, throat swelling, other Respiratory: denies: cough, dry, shortness of breath, hemoptysis, SOB with excertion, pleuritic pain, sputum, wheezing, other Cardiovascular: denies: chest pain, palpitations, orthopnea, paroxysmal noc. dyspnea, edema, light headedness, other Gastrointestinal: denies: nausea, vomiting, abdominal pain, diarrhea, constipation, melena, hematochezia, other Genitourinary: denies: dysuria, frequency, incontinence, hematuria, retention, other Musculoskeletal: denies: neck pain, shoulder pain, arm pain, back pain, hand pain, leg pain, foot pain, other Skin: denies: rash, lesions, celestino, bruising, other - Medication Medications: Active Medications Generic Name Dose Route Start Last Admin Trade Name Freq PRN Reason Stop Dose Admin Apixaban 5 mg 06/30/19 09:00 07/01/19 08:31 Eliquis PO 5 mg BID [facility] Administration Aspirin 81 mg 06/30/19 09:00 07/01/19 08:31 Ecotrin PO 81 mg DAILY [facility] Administration Diltiazem HCl 30 mg 07/01/19 08:00 07/01/19 08:31 Cardizem PO 30 mg 0800,1600,2359 [facility] Administration Famotidine 20 mg 06/30/19 09:00 07/01/19 08:31 Pepcid PO 20 mg DAILY [facility] Administration Furosemide 20 mg 06/30/19 14:00 07/01/19 05:43 Lasix SLOW IVP 20 mg 0600,1400 [facility] Administration Diltiazem HCl 125 mg/ Sodium 125 mls @ 10 mls/hr 06/30/19 07:15 07/01/19 03: 53 Chloride IVPB 125 mls INF [facility] Administration Protocol Levothyroxine Sodium 50 mcg 07/01/19 06:00 07/01/19 05:43 Synthroid PO 50 mcg 0600 [facility] Administration Metoprolol Succinate 50 mg 06/30/19 09:00 07/01/19 08:31 Toprol Xl PO 50 mg DAILY [facility] Administration - Exam General Appearance: NAD, awake alert Eye: PERRL, anicteric sclera ENT: normocephalic atraumatic, no oropharyngeal lesions Neck: supple, symmetric, no JVD, no thyromegaly Heart: no gallops, no rubs, irregular, murmur present Respiratory: CTAB, no ronchi, normal chest expansion, rales Gastrointestinal: soft, non-tender, non-distended, normal bowel sounds Extremities: no cyanosis, no clubbing, no edema Skin: normal turgor, no lesions, no rashes Neurological: cranial nerve grossly intact, no focal deficits Musculoskeletal: normal tone, normal strength, no muscle wasting Psychiatric: normal affect, normal behavior, A&O x 3 Hosp A/P (1) 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 Code(s): I50.41 - ACUTE COMBINED SYSTOLIC AND DIASTOLIC (CONGESTIVE) HRT FAIL Status: Acute (2) Atrial fibrillation with RVR Code(s): I48.91 - UNSPECIFIED ATRIAL FIBRILLATION Status: Acute (3) Moderate tricuspid regurgitation Code(s): I07.1 - RHEUMATIC TRICUSPID INSUFFICIENCY Status: Acute (4) Severe mitral regurgitation Code(s): I34.0 - NONRHEUMATIC MITRAL (VALVE) INSUFFICIENCY Status: Acute (5) CAD (coronary artery disease) Code(s): I25.10 - ATHSCL HEART DISEASE OF [place] CORONARY ARTERY W/O ANG PCTRS Status: Chronic (6) CKD (chronic kidney disease) stage 3, GFR 30-59 ml/min Code(s): N18.3 - CHRONIC KIDNEY DISEASE, STAGE 3 (MODERATE) Status: Chronic (7) Chronic anticoagulation Code(s): Z79.01 - KNOWLEDGE ENGINEER (CURRENT) USE OF ANTICOAGULANTS Status: Chronic (8) Hypothyroidism Code(s): E03.9 - HYPOTHYROIDISM, UNSPECIFIED Status: Chronic - Plan old records reviewed/req, plan discussed w/ family 07/01/19- he has low EF may be due to persistent afib or underlying ischemia, currently on medical therapy, cardiology following, ischemia evaluation will defer to them, continue lasix, medication reviewed as above, symptomatic treatment, discussed with daughter
[2019-07-01] MEDS ORDERED: Diltiazem 125 MG in Sodium Chloride 0.9% 100 ML IVPB SCH (17:48)
[2019-07-02] MEDS: Levothyroxine Sodium 50 MCG TAB PO SCH (06:18)
[2019-07-02] MEDS: Furosemide 20 MG/2 ML VIAL SLOW IVP SCH ×2 (06:18→14:10)
[2019-07-02] MEDS ORDERED: Diltiazem 125 MG in Sodium Chloride 0.9% 100 ML IVPB SCH (07:00)
--- NOTE | 2019-07-02 07:02 | PDOC.CPN ---
- Subjective Date: 07/02/19 Time: 13:24 Interval history: HR appears to be stable when at rest. INcreasing during exertion - Objective Allergies/Adverse Reactions: Allergies Allergy/AdvReac Type Severity Reaction Status Date / Time ciprofloxacin [From Cipro] Allergy Verified 06/30/19 06:38 Penicillins Allergy Verified 06/30/19 06:38 Eejsrnh-Zlh-Qvf Reductase Allergy Verified 06/30/19 06:38 Inhibitor Sulfa (Sulfonamide Allergy Verified 06/30/19 06:38 Antibiotics) Visit Medications: Current Medications Acetaminophen (Tylenol) 650 mg PO Q4H PRN PRN Reason: Headache/Fever/Mild Pain (1-3) Hydrocodone Bitart/Acetaminophen ([place] 5/325) 1 tab PO Q4H PRN PRN Reason: Moderate Pain (4-6) Apixaban (Eliquis) 5 mg PO BID [facility] Last Admin: 07/01/19 20:21 Dose: 5 mg Artificial Tears (Tears Naturale) 2 drop EA EYE PRN PRN PRN Reason: Dry Eyes Aspirin (Ecotrin) 81 mg PO DAILY [facility] Last Admin: 07/01/19 08:31 Dose: 81 mg Bisacodyl (Dulcolax) 10 mg [place] DAILYPRN PRN PRN Reason: Constipation Calcium Carbonate (Tums) 1,000 mg PO Q4H PRN PRN Reason: Heartburn or Indigestion Diltiazem HCl (Cardizem) 60 mg PO 0800,1600,2359 [facility] Last Admin: 07/01/19 22:58 Dose: 60 mg Famotidine (Pepcid) 20 mg PO DAILY [facility] Last Admin: 07/01/19 08:31 Dose: 20 mg Furosemide (Lasix) 20 mg SLOW IVP 0600,1400 [facility] Last Admin: 07/02/19 06:18 Dose: 20 mg Guaifenesin (Robitussin Sf) 200 mg PO Q4H PRN PRN Reason: Cough Diltiazem HCl 125 mg/ Sodium (Chloride) 125 mls @ 5 mls/hr IVPB INF [facility]; Protocol Last Admin: 07/01/19 22:58 Dose: 125 mls Labetalol HCl (Normodyne) 20 mg SLOW IVP Q4H PRN PRN Reason: SBP > 180 and HR >/= 70 Levothyroxine Sodium (Synthroid) 50 mcg PO 0600 [facility] Last Admin: 07/02/19 06:18 Dose: 50 mcg Loperamide HCl (Imodium) 2 mg PO PRN PRN PRN Reason: Diarrhea/Loose Stools Loratadine (Claritin) 10 mg PO DAILYPRN PRN PRN Reason: Sinus Symptoms Metoprolol Succinate (Toprol Xl) 50 mg PO DAILY [facility] Last Admin: 07/01/19 08:31 Dose: 50 mg Ondansetron HCl (Zofran Odt) 4 mg PO Q6H PRN PRN Reason: Nausea/Vomiting Ondansetron HCl (Zofran) 4 mg IVP Q6H PRN PRN Reason: Nausea/Vomiting Senna/Docusate Sodium (Senokot S) 2 tab PO BID PRN PRN Reason: Constipation Sodium Chloride ([place] 0.65%) 0 ml EA NARE QIDPRN PRN PRN Reason: Nasal Congestion Throat Lozenges (Cepastat Lozenges) 1 frank PO Q2H PRN PRN Reason: Sore Throat Zolpidem Tartrate (Ambien) 5 mg PO HSPRN PRN PRN Reason: Insomnia Vital Signs & Weight: Vital Signs Temp Pulse Ox 07/02/19 03:23 98.6 F 07/01/19 23:21 98.9 F 07/01/19 20:00 100 07/01/19 19:47 98.2 F Weight 157 lb 6.561 oz - CHADS-VASc Hypertension: 1 Age >75: 2 Vascular disease: 1 Risk Score: 4 - Quality Measures Condition: Atrial Fibrillation/Flutter (hx or current), Coronary Artery Disease , Heart Failure - Physical Exam General: alert & oriented x3 HEENT: normocephaly Neck: supple neck Cardiac: no murmur, regular rate, irregularly regular Lungs: normal exam Neuro: grossly intact Abdomen: non-tender, no masses Skin: rash Musculoskeletal: no pain - Labs Result Diagrams: 07/01/19 04:30 07/01/19 04:29 Troponin/CKMB Troponin I Less than 0.010 ng/mL (< 0.028) 06/30/19 04:45 - Assessment/Plan Assessment/Plan: CAD afib s/p CABG Recent bronchitis CHF, new onset REC 07/02 EF 30-35%; EF appears normal in 12/2018 Recommend repeat echo Increase PO CCB and BB decrease IV CCB then dc Pt would like rate control, not interested in CV and amiodarone treatment Pt also not interested in ablation Consult EP REC 07/01 Rate control for now Pt not interested in repeat ablation or amiodarone Would like rate control I did state givent he amt of IV CCB that may be difficult On IV CCB, low dose BB Add PO CCB Continue NOAC
[2019-07-02] MEDS: Aspirin 81 mg Enteric Coated Tablet PO SCH (08:04)
[2019-07-02] MEDS: Apixaban 5 MG TAB PO SCH ×2 (08:04→20:28)
[2019-07-02] MEDS: Famotidine 20 MG TAB PO SCH (08:04)
[2019-07-02] MEDS: Metoprolol Tartrate 50 MG TAB PO SCH ×2 (08:04→20:28)
[2019-07-02] MEDS ORDERED: Metoprolol Tartrate 25 MG TAB PO SCH (09:00)
--- NOTE | 2019-07-02 12:15 | PDOC.HOSPP ---
- Subjective Encounter Date: 07/02/19 Encounter Time: 10:30 Subjective: Patient seen and examined. No new complaints. No overnight events - Objective Vital Signs & Weight: Vital Signs (12 hours) Temp Pulse Ox 07/02/19 12:00 98.1 F 07/02/19 08:00 98.2 F 96 07/02/19 03:23 98.6 F Weight Weight 157 lb 6.561 oz Most Recent Monitor Data Heart Rate from ECG 82 NIBP 99/64 NIBP BP-Mean 75 Respiration from ECG 20 SpO2 96 I&O: 07/01/19 07/02/19 07/03/19 06:59 06:59 06:59 Intake Total 1616 1048.9 Output Total 1375 2625 300 Balance -1309 -1576.1 -300 Result Diagrams: 07/01/19 04:30 07/01/19 04:29 EKG Reviewed by me: Yes Hospitalist ROS - Review of Systems ENT: denies: ear pain, ear discharge, nose pain, nose discharge, nose congestion , mouth pain, mouth swelling, throat pain, throat swelling, other Respiratory: denies: cough, dry, shortness of breath, hemoptysis, SOB with excertion, pleuritic pain, sputum, wheezing, other Cardiovascular: denies: chest pain, palpitations, orthopnea, paroxysmal noc. dyspnea, edema, light headedness, other Gastrointestinal: denies: nausea, vomiting, abdominal pain, diarrhea, constipation, melena, hematochezia, other Genitourinary: denies: dysuria, frequency, incontinence, hematuria, retention, other Musculoskeletal: denies: neck pain, shoulder pain, arm pain, back pain, hand pain, leg pain, foot pain, other Skin: denies: rash, lesions, celestino, bruising, other - Medication Medications: Active Medications Generic Name Dose Route Start Last Admin Trade Name Freq PRN Reason Stop Dose Admin Apixaban 5 mg 06/30/19 09:00 07/02/19 08:04 Eliquis PO 5 mg BID GENNY Administration Aspirin 81 mg 06/30/19 09:00 07/02/19 08:04 Ecotrin PO 81 mg DAILY GENNY Administration Diltiazem HCl 60 mg 07/02/19 07:00 07/02/19 08:04 Cardizem PO 60 mg Q6H GENNY Administration Famotidine 20 mg 06/30/19 09:00 07/02/19 08:04 Pepcid PO 20 mg DAILY GENNY Administration Furosemide 20 mg 06/30/19 14:00 07/02/19 06:18 Lasix SLOW IVP 20 mg 0600,1400 GENNY Administration Levothyroxine Sodium 50 mcg 07/01/19 06:00 07/02/19 06:18 Synthroid PO 50 mcg 0600 GENNY Administration Metoprolol Tartrate 50 mg 07/02/19 09:00 07/02/19 08:04 Lopressor PO 50 mg BID GENNY Administration - Exam General Appearance: NAD, awake alert Eye: PERRL, anicteric sclera ENT: normocephalic atraumatic, no oropharyngeal lesions Neck: supple, symmetric, no JVD, no thyromegaly Heart: no murmur, no gallops, irregular Respiratory: CTAB, no wheezes, no rales, no ronchi Gastrointestinal: soft, non-tender, non-distended, normal bowel sounds Extremities: no cyanosis, no clubbing Skin: normal turgor, no lesions Neurological: cranial nerve grossly intact, no focal deficits Musculoskeletal: normal tone, normal strength Psychiatric: normal affect, normal behavior Hosp A/P (1) 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 Code(s): I50.41 - ACUTE COMBINED SYSTOLIC AND DIASTOLIC (CONGESTIVE) HRT FAIL Status: Acute (2) Atrial fibrillation with RVR Code(s): I48.91 - UNSPECIFIED ATRIAL FIBRILLATION Status: Acute (3) Moderate tricuspid regurgitation Code(s): I07.1 - RHEUMATIC TRICUSPID INSUFFICIENCY Status: Acute (4) Severe mitral regurgitation Code(s): I34.0 - NONRHEUMATIC MITRAL (VALVE) INSUFFICIENCY Status: Acute (5) CAD (coronary artery disease) Code(s): I25.10 - ATHSCL HEART DISEASE OF [place] CORONARY ARTERY W/O ANG PCTRS Status: Chronic (6) CKD (chronic kidney disease) stage 3, GFR 30-59 ml/min Code(s): N18.3 - CHRONIC KIDNEY DISEASE, STAGE 3 (MODERATE) Status: Chronic (7) Chronic anticoagulation Code(s): Z79.01 - Status: Chronic (8) Hypothyroidism Code(s): E03.9 - HYPOTHYROIDISM, UNSPECIFIED Status: Chronic - Plan old records reviewed/req, plan discussed w/ family 07/01/19- he has low EF may be due to persistent afib or underlying ischemia, currently on medical therapy, cardiology following, ischemia evaluation will defer to them, continue lasix, medication reviewed as above, symptomatic treatment, discussed with daughter 07/02/19- continue cardizem drip and oral meds to control heart rate but still not controlled, cardiology recommendation noted, pt prefers ablation so will consult EP
[2019-07-02] MEDS: Acetaminophen 325 MG TAB PO PRN (20:31)
[2019-07-03] MEDS: Furosemide 20 MG/2 ML VIAL SLOW IVP SCH ×2 (06:30→14:03)
[2019-07-03] MEDS: Levothyroxine Sodium 50 MCG TAB PO SCH (06:30)
--- NOTE | 2019-07-03 07:54 | CON ---
DATE OF CONSULTATION: 07/02/2019 HISTORY OF PRESENT ILLNESS: I am seeing Mr. 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 His problems are; 1. Recurrent atrial arrhythmias. a. History of persistent atrial flutter, status post CTI ablation in March 2016. b. Persistent atrial fibrillation, prompting a WILLIAN-guided cardioversion in July 2018, once the recurrent atrial fibrillation noted in November, rate control strategy was pursued per patient's preference. c. Current admission with atrial fibrillation with rapid ventricular rates are noted. 2. History of premature ventricular contractions, status post left coronary cusp focus ablation in March 2016. 3. History of coronary artery disease, status post 4-vessel bypass surgery in 2007. a. Reduced left ventricular ejection fraction on echo 06/30/2019. 4. Hypertension. 5. Hyperlipidemia. ALLERGIES: CIPRO, PENICILLIN, AND STATINS. MEDICATIONS: At home, included; 1. Aspirin. 2. Apixaban. 3. Levothyroxine. 4. Metoprolol. SUBJECTIVE: Mr. Vasquez was admitted on the 30 of June with symptoms of progressive fluid overload and atrial fibrillation with rapid ventricular rates. He was given IV diltiazem which was changed to p.o., so metoprolol was given at medium dose and despite his heart rate continues to be poorly controlled when his ambulates, he does not feel dyspneic anymore laying down, but with ambulation only. He denies current chest pains. No fever, chills, or cough anymore. No stroke- like symptoms. No neurological deficits. REVIEW OF SYSTEMS: Rest of 12-point review of systems otherwise unremarkable. LABORATORY DATA: White count 7.4, hemoglobin 11, and platelet count is 147. Sodium 137, potassium 4.1, BUN is 25, and creatinine 1.32. BNP on the was 1136. TSH was 2.1 on the . Troponins levels are 0.01. ASSESSMENT AND PLAN: Mr. Vasquez is a pleasant 89-year-old man with prior history of recurrent atrial arrhythmia, remote cavotricuspid isthmus ablation and also premature ventricular contraction ablation, more recently had developed atrial fibrillation. He had previous cardioversions, but his atrial fibrillation recurred. He has been treated with rate control since December, but now he has difficult time to control his heart rates. He was also presented with heart failure exacerbation. His left ventricular ejection fraction is now worse than the previous numbers that were in normal range. Now, it is in the 30% to 35% range. We discussed the potential treatment options. At this point, rhythm maintenance will be likely difficult without an antiarhythmic. For severe reduced left ventricular ejection fraction and the difficult rate control, amiodarone would be the likely most appropriate medication. Alternatively, possible Tikosyn could be considered. The patient is also resilient to antiarrhythmic choices. He is interested in ablation. On the other hand, he is still at risk for developing further heart failure issues also on top with his advanced age might make him more prone to complications and poor recovery. We will discuss with Dr. Auguste to make a decision versus rhythm rate control. Follow up with left ventricular ejection fraction might be necessary after rate and rhythm control to assess further left ventricular ejection fraction changes. If remains in the less than 30% range persistently, he might be a candidate for implantable cardioverter-defibrillator implant as an outpatient in the future. We will follow with you. Thank you again for allowing me to participate in the care of this patient. Job ID: [id number] [facility] CENTERChavez
[2019-07-03] MEDS: Aspirin 81 mg Enteric Coated Tablet PO SCH (08:11)
[2019-07-03] MEDS: Apixaban 5 MG TAB PO SCH ×2 (08:11→20:08)
[2019-07-03] MEDS: Famotidine 20 MG TAB PO SCH (08:11)
[2019-07-03] MEDS: Metoprolol Tartrate 50 MG TAB PO SCH ×2 (08:11→20:08)
--- NOTE | 2019-07-03 11:48 | PDOC.CPN ---
- Subjective Date: 07/03/19 Time: 09:00 Interval history: 1. Recurrent atrial arrhythmias. a. History of persistent atrial flutter, status post CTI ablation in March 2016. b. Persistent atrial fibrillation, prompting a WILLIAN-guided cardioversion in July 2018, once the recurrent atrial fibrillation noted in November, rate control was pursued. c. Current admission with atrial fibrillation with rapid ventricular rates are noted. 2. History of premature ventricular contractions, status post left coronary cusp focus ablation in March 2016. 3. History of coronary artery disease, status post 4-vessel bypass surgery in 2007. a. Reduced left ventricular ejection fraction on echo 06/30/2019. 4. Hypertension. 5. Hyperlipidemia. He is feeling somewhat better today. No new complaints today - Review of Systems General: denies: fever/chills, weight/appetite/sleep changes, night sweats, fatigue Respiratory: reports: shortness of breath (GUTIÉRREZ). denies: cough, congestion, exercise intolerance Cardiovascular: reports: palpitation (occasional heart racing/palpitations). denies: chest pain, edema, paroxysmal nocturnal dyspnea, orthopnea Gastrointestinal: denies: nausea, vomiting, diarrhea, constipation, abd pain, GI bleeding Musculoskeletal: denies: pain, tenderness, stiffness, swelling, arthritis/ arthralgias Neurological: denies: numbness, syncope, seizure, weakness - Objective Allergies/Adverse Reactions: Allergies Allergy/AdvReac Type Severity Reaction Status Date / Time ciprofloxacin [From Cipro] Allergy Verified 06/30/19 06:38 Penicillins Allergy Verified 06/30/19 06:38 Blcxrlk-[id number]-Yes Reductase Allergy Verified 06/30/19 06:38 Inhibitor Sulfa (Sulfonamide Allergy Verified 06/30/19 06:38 Antibiotics) Visit Medications: Current Medications Acetaminophen (Tylenol) 650 mg PO Q4H PRN PRN Reason: Headache/Fever/Mild Pain (1-3) Last Admin: 07/02/19 20:31 Dose: 650 mg Hydrocodone Bitart/Acetaminophen ([place] 5/325) 1 tab PO Q4H PRN PRN Reason: Moderate Pain (4-6) Apixaban (Eliquis) 5 mg PO BID [facility] Last Admin: 07/03/19 08:11 Dose: 5 mg Artificial Tears (Tears Naturale) 2 drop EA EYE PRN PRN PRN Reason: Dry Eyes Aspirin (Ecotrin) 81 mg PO DAILY [facility] Last Admin: 07/03/19 08:11 Dose: 81 mg Bisacodyl (Dulcolax) 10 mg [place] DAILYPRN PRN PRN Reason: Constipation Calcium Carbonate (Tums) 1,000 mg PO Q4H PRN PRN Reason: Heartburn or Indigestion Diltiazem HCl (Cardizem) 60 mg PO 0200,0800,1400,2000 [facility] Last Admin: 07/03/19 08:11 Dose: 60 mg Famotidine (Pepcid) 20 mg PO DAILY [facility] Last Admin: 07/03/19 08:11 Dose: 20 mg Furosemide (Lasix) 20 mg SLOW IVP 0600,1400 [facility] Last Admin: 07/03/19 06:30 Dose: 20 mg Guaifenesin (Robitussin Sf) 200 mg PO Q4H PRN PRN Reason: Cough Labetalol HCl (Normodyne) 20 mg SLOW IVP Q4H PRN PRN Reason: SBP > 180 and HR >/= 70 Levothyroxine Sodium (Synthroid) 50 mcg PO 0600 [facility] Last Admin: 07/03/19 06:30 Dose: 50 mcg Loperamide HCl (Imodium) 2 mg PO PRN PRN PRN Reason: Diarrhea/Loose Stools Loratadine (Claritin) 10 mg PO DAILYPRN PRN PRN Reason: Sinus Symptoms Metoprolol Tartrate (Lopressor) 50 mg PO BID [facility] Last Admin: 07/03/19 08:11 Dose: 50 mg Ondansetron HCl (Zofran Odt) 4 mg PO Q6H PRN PRN Reason: Nausea/Vomiting Ondansetron HCl (Zofran) 4 mg IVP Q6H PRN PRN Reason: Nausea/Vomiting Senna/Docusate Sodium (Senokot S) 2 tab PO BID PRN PRN Reason: Constipation Last Admin: 07/03/19 09:27 Dose: 2 tab Sodium Chloride ([place] Nasal [place] 0.65%) 0 ml EA NARE QIDPRN PRN PRN Reason: Nasal Congestion Throat Lozenges (Cepastat Lozenges) 1 frank PO Q2H PRN PRN Reason: Sore Throat Zolpidem Tartrate (Ambien) 5 mg PO HSPRN PRN PRN Reason: Insomnia Vital Signs & Weight: Vital Signs Temp Pulse Ox 07/03/19 11:21 97.8 F 07/03/19 08:00 95 07/03/19 07:42 98.2 F 07/03/19 03:30 97.8 F 07/02/19 23:49 98.7 F Weight 154 lb 8.705 oz - CHADS-VASc Congestive heart failure: 1 Age >75: 2 Vascular disease: 1 Risk Score: 4 - Quality Measures Condition: Atrial Fibrillation/Flutter (hx or current), Coronary Artery Disease , Heart Failure - Physical Exam HEENT: mucus membranes moist, normocephaly Neck: supple neck, midline trachea, no JVD/HJR Cardiac: other (irregularly irregular) Lungs: clear to auscultation, normal breath sounds - Labs Result Diagrams: 07/01/19 04:30 07/01/19 04:29 Troponin/CKMB Troponin I Less than 0.010 ng/mL (< 0.028) 06/30/19 04:45 - Telemetry Supraventricular conduction: atrial fibrillation - Assessment/Plan Assessment/Plan: 1. Atrial fibrillation, persistent -moderate rate control -associated dyspnea on exertion 2. CHADS2-VASC: 4 - continue eliquis for CVA prophylaxis 3. Cardiomyopathy -severely reduced EF -Recommend lifevest and possible ICD in the future if EF remains <35% Remains resistent to amiodarone therapy, which is my recommendation, and somewhat favors ablation. He is a poor ablative candidate with his advanced age and cardiomyopathy and is at risk for HF complications and a poor recovery. Alternately, rate control could be an appropriate option for him.
--- NOTE | 2019-07-03 20:05 | EKG ---
Test Reason : Blood Pressure : / mmHG Vent. Rate : 140 BPM Atrial Rate : 053 BPM P-R Int : 000 ms QRS Dur : 082 ms QT Int : 306 ms P-R-T Axes : 000 -37 236 degrees QTc Int : 467 ms Atrial fibrillation with rapid ventricular response Left axis deviation Abnormal ECG When compared with ECG of 14-FEB-2019 08:50, Previous ECG has undetermined rhythm, needs review ST now depressed in Anterior leads Confirmed by CORNELIA BARRAZA, SMatias ([id number]) on 07/03/2019 8:04:52 PM Referred By: [facility] Confirmed By:DR. North LOCKE MD
[2019-07-03] MEDS: Acetaminophen 325 MG TAB PO PRN (20:08)
--- NOTE | 2019-07-03 20:15 | PDOC.HOSPP ---
- Subjective Encounter Date: 07/03/19 Encounter Time: 16:30 Subjective: Extended conversation, patient expresses good understanding of current situation. Understands ablation not an option presently, but in the future. He was unclear on what a life vest was, so we discussed this a bit. Rate control in general better per nurses; some GUTIÉRREZ but accomplished getting up and showering today. He wants to "live with the a fib and take the medications to keep it under control." Off cardizem gtt for 24 hours. - Objective Vital Signs & Weight: Vital Signs (12 hours) Temp Pulse BP 07/03/19 20:08 100 114/93 H 07/03/19 19:19 98.4 F 07/03/19 15:21 98.6 F 07/03/19 11:21 97.8 F Weight Weight 154 lb 8.705 oz Most Recent Monitor Data Heart Rate from ECG 82 NIBP 114/93 NIBP BP-Mean 100 Respiration from ECG 27 SpO2 96 I&O: 07/02/19 07/03/19 07/04/19 06:59 06:59 06:59 Intake Total 1048.9 850 1350 Output Total 2625 1050 1400 Balance -1576.1 -200 -50 Result Diagrams: 07/01/19 04:30 07/01/19 04:29 Hospitalist ROS - Medication Medications: Active Medications Generic Name Dose Route Start Last Admin Trade Name Freq PRN Reason Stop Dose Admin Acetaminophen 650 mg 06/30/19 07:05 07/03/19 20:08 Tylenol PO 650 mg Q4H PRN Administration Headache/Fever/Mild Pain (1-3) Apixaban 5 mg 06/30/19 09:00 07/03/19 20:08 Eliquis PO 5 mg BID GENNY Administration Aspirin 81 mg 06/30/19 09:00 07/03/19 08:11 Ecotrin PO 81 mg DAILY GENNY Administration Diltiazem HCl 240 mg 07/03/19 21:00 07/03/19 20:08 Cardizem Cd PO 240 mg 2100 GENNY Administration Famotidine 20 mg 06/30/19 09:00 07/03/19 08:11 Pepcid PO 20 mg DAILY GENNY Administration Furosemide 20 mg 06/30/19 14:00 07/03/19 14:03 Lasix SLOW IVP 20 mg 0600,1400 GENNY Administration Levothyroxine Sodium 50 mcg 07/01/19 06:00 07/03/19 06:30 Synthroid PO 50 mcg 0600 GENNY Administration Metoprolol Tartrate 50 mg 07/02/19 09:00 07/03/19 20:08 Lopressor PO 50 mg BID GENNY Administration Senna/Docusate Sodium 2 tab 06/30/19 07:05 07/03/19 09:27 Senokot S PO 2 tab BID PRN Administration Constipation - Exam General Appearance: awake alert General - other findings: Able to hear with hearing aids in place Eye: anicteric sclera ENT: normocephalic atraumatic Neck: supple, no JVD Heart: irregular Respiratory - other findings: minimal basilar crackles Gastrointestinal: soft, non-tender Extremities: no edema Skin: no rashes Neurological: no focal deficits Neurological - other findings: hard of hearing Musculoskeletal: no muscle wasting Psychiatric: A&O x 3 Hosp A/P (1) 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 Code(s): I50.41 - ACUTE COMBINED SYSTOLIC AND DIASTOLIC (CONGESTIVE) HRT FAIL Status: Acute (2) Atrial fibrillation with RVR Code(s): I48.91 - UNSPECIFIED ATRIAL FIBRILLATION Status: Acute (3) Moderate tricuspid regurgitation Code(s): I07.1 - RHEUMATIC TRICUSPID INSUFFICIENCY Status: Acute (4) Severe mitral regurgitation Code(s): I34.0 - NONRHEUMATIC MITRAL (VALVE) INSUFFICIENCY Status: Acute (5) CAD (coronary artery disease) Code(s): I25.10 - ATHSCL HEART DISEASE OF [place] CORONARY ARTERY W/O ANG PCTRS Status: Chronic (6) CKD (chronic kidney disease) stage 3, GFR 30-59 ml/min Code(s): N18.3 - CHRONIC KIDNEY DISEASE, STAGE 3 (MODERATE) Status: Chronic (7) Chronic anticoagulation Code(s): Z79.01 - [place]ISON (CURRENT) USE OF ANTICOAGULANTS Status: Chronic (8) Hypothyroidism Code(s): E03.9 - HYPOTHYROIDISM, UNSPECIFIED Status: Chronic - Plan Cards - appreciate cardiology and EP. Recently adjusted medication reviewed; amiodarone to begin tomorrow morning, Cardizem CD 240q pm and metoprolol presently 50mg bid. Continue Eliquis/ASA. ?Life vest; echo repeated today, f/ u reading when available. Change to oral diuretic. - BPH, patient follows w/urology Ambulate/OOB/increase activity
[2019-07-04] MEDS: Levothyroxine Sodium 50 MCG TAB PO SCH (06:37)
--- NOTE | 2019-07-04 07:12 | PRG ---
DATE OF SERVICE: 07/03/2019 SUBJECTIVE: Mr. Vasquez appears to be doing better. His rate appears to be much better controlled. He is currently on Cardizem in addition to metoprolol. OBJECTIVE: GENERAL: Patient is a pleasant male, who is in no acute distress. The patient appears their stated age. VITAL SIGNS: Blood pressure 111/67, pulse 93, temperature afebrile. NEUROLOGIC: The patient is alert and oriented x3 with no focal neurologic deficits. HEENT: Sclerae without icterus. Mouth has moist mucous membranes with normal pallor. NECK: No JVD. Carotid upstroke brisk. No bruits bilaterally. LUNGS: Clear to auscultation with unlabored respirations. BACK: No scoliosis or kyphosis. CARDIAC: Irregularly irregular. ABDOMEN: Soft, nontender, nondistended. No peritoneal signs present. No hepatosplenomegaly. No abnormal striae. EXTREMITIES: 2+ femoral and 2+ dorsalis pedis pulses. No cyanosis, clubbing, or edema. SKIN: No gross abnormalities. PERTINENT LABORATORY DATA: Hemoglobin 11.0, creatinine 1.3. IMPRESSION: 1. New onset cardiomyopathy with LVEF 30% to 35%. 2. Atrial fibrillation. 3. Coronary artery disease. 4. Status post bypass surgery. RECOMMENDATION: I had a long discussion with Mr. Vasquez as well as his daughter today about his options. His LVEF has appeared diminished and it is a new finding. His LVEF in December was normal. Several options were presented to Mr. Vasquez. Options included proceeding with angiography to assess coronary anatomy in addition to rate control plus amiodarone therapy for three weeks, then discuss cardioversion. After much discussion, he opted for the last choice, which had included continued medical therapy in addition to amiodarone treatment. Given his LVEF 30% to 35%, we will also recommend LifeVest. If he is stable in the morning, would be okay from my standpoint to discharge home. Job ID: [id number]
--- NOTE | 2019-07-04 07:16 | PDOC.CPN ---
- Subjective Date: 07/04/19 Time: 14:15 Interval history: Feels better overall Tolerating BB, CCB and amiodarone HR better - Objective Allergies/Adverse Reactions: Allergies Allergy/AdvReac Type Severity Reaction Status Date / Time ciprofloxacin [From Cipro] Allergy Verified 06/30/19 06:38 Penicillins Allergy Verified 06/30/19 06:38 Usfooyp-Eqr-Fxn Reductase Allergy Verified 06/30/19 06:38 Inhibitor Sulfa (Sulfonamide Allergy Verified 06/30/19 06:38 Antibiotics) Visit Medications: Current Medications Acetaminophen (Tylenol) 650 mg PO Q4H PRN PRN Reason: Headache/Fever/Mild Pain (1-3) Last Admin: 07/03/19 20:08 Dose: 650 mg Hydrocodone Bitart/Acetaminophen ([place] 5/325) 1 tab PO Q4H PRN PRN Reason: Moderate Pain (4-6) Amiodarone HCl (Cordarone) 400 mg PO DAILY [facility] Apixaban (Eliquis) 5 mg PO BID [facility] Last Admin: 07/03/19 20:08 Dose: 5 mg Artificial Tears (Tears Naturale) 2 drop EA EYE PRN PRN PRN Reason: Dry Eyes Aspirin (Ecotrin) 81 mg PO DAILY [facility] Last Admin: 07/03/19 08:11 Dose: 81 mg Bisacodyl (Dulcolax) 10 mg [place] DAILYPRN PRN PRN Reason: Constipation Calcium Carbonate (Tums) 1,000 mg PO Q4H PRN PRN Reason: Heartburn or Indigestion Diltiazem HCl (Cardizem Cd) 240 mg PO 2100 [facility] Last Admin: 07/03/19 20:08 Dose: 240 mg Famotidine (Pepcid) 20 mg PO DAILY [facility] Last Admin: 07/03/19 08:11 Dose: 20 mg Furosemide (Lasix) 40 mg PO DAILY-AC [facility] Last Admin: 07/04/19 06:37 Dose: 40 mg Guaifenesin (Robitussin Sf) 200 mg PO Q4H PRN PRN Reason: Cough Labetalol HCl (Normodyne) 20 mg SLOW IVP Q4H PRN PRN Reason: SBP > 180 and HR >/= 70 Levothyroxine Sodium (Synthroid) 50 mcg PO 0600 [facility] Last Admin: 07/04/19 06:37 Dose: 50 mcg Loperamide HCl (Imodium) 2 mg PO PRN PRN PRN Reason: Diarrhea/Loose Stools Loratadine (Claritin) 10 mg PO DAILYPRN PRN PRN Reason: Sinus Symptoms Ondansetron HCl (Zofran Odt) 4 mg PO Q6H PRN PRN Reason: Nausea/Vomiting Ondansetron HCl (Zofran) 4 mg IVP Q6H PRN PRN Reason: Nausea/Vomiting Senna/Docusate Sodium (Senokot S) 2 tab PO BID PRN PRN Reason: Constipation Last Admin: 07/03/19 09:27 Dose: 2 tab Sodium Chloride ([place] Nasal [place] 0.65%) 0 ml EA NARE QIDPRN PRN PRN Reason: Nasal Congestion Throat Lozenges (Cepastat Lozenges) 1 frank PO Q2H PRN PRN Reason: Sore Throat Zolpidem Tartrate (Ambien) 5 mg PO HSPRN PRN PRN Reason: Insomnia Vital Signs & Weight: Vital Signs Temp Pulse BP Pulse Ox 07/04/19 04:00 98.0 F 07/03/19 20:08 100 114/93 H 07/03/19 20:00 98 07/03/19 19:19 98.4 F Weight 150 lb 12.739 oz - Quality Measures Condition: Atrial Fibrillation/Flutter (hx or current), Coronary Artery Disease , Heart Failure - Physical Exam General: alert & oriented x3 HEENT: normocephaly Neck: no masses, no bruit Cardiac: irregularly regular Lungs: normal exam Neuro: grossly intact, motor function intact Abdomen: soft Musculoskeletal: no pain - Labs Result Diagrams: 07/01/19 04:30 07/01/19 04:29 Troponin/CKMB Troponin I Less than 0.010 ng/mL (< 0.028) 06/30/19 04:45 - Assessment/Plan Assessment/Plan: Cardiomyopathy of unknown etiology Afib CAD s/p CABG Pt has opted for rate control and CV as OP Inc BB Cotnue with CCB, amiodaorne If rate controlled today, ok for DC home after Zoll with OP fu
[2019-07-04] MEDS ORDERED: Furosemide 40 MG TAB PO SCH (07:30)
[2019-07-04] MEDS: Aspirin 81 mg Enteric Coated Tablet PO SCH (08:11)
[2019-07-04] MEDS: Famotidine 20 MG TAB PO SCH (08:12)
[2019-07-04] MEDS: Apixaban 5 MG TAB PO SCH (08:14)
[2019-07-04] MEDS ORDERED: Amiodarone 200 MG TAB PO SCH (09:00)
[2019-07-04] MEDS ORDERED: Metoprolol Tartrate 50 MG TAB PO SCH (09:00)
[2019-07-04 10:08] VITALS: BP 101/72
[2019-07-04 16:18] VITALS: TEMP 98.2
--- NOTE | 2019-07-04 16:27 | DIS ---
DATE OF ADMISSION: 06/30/2019 DATE OF DISCHARGE: 07/04/2019 DISCHARGE DISPOSITION: Home. PRIMARY CARE PHYSICIAN: Renae Moore MD. BARREL RIFLER: Shalom Auguste MD. CHIEF COMPLAINT/REASON FOR ADMISSION: Acute atrial fibrillation with rapid ventricular response. PRINCIPAL DIAGNOSES ON ADMISSION: 1. Paroxysmal atrial fibrillation with rapid ventricular response. 2. Hypothyroidism. 3. Coronary artery disease. DISCHARGE DIAGNOSES: 1. Persistent atrial fibrillation, initially with rapid ventricular response, with improved rate responses with medication titration. 2. Systolic congestive heart failure, new, with acute decompensation, ejection fraction 30%-35%. 3. Chronic kidney disease, stage 3. 4. Hypothyroidism. 5. Coronary artery disease with history of prior coronary artery bypass grafting. 6. 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 7. Moderate tricuspid regurgitation. 8. Moderate-severe mitral regurgitation. 9. Chronic anticoagulation. CONSULTS DURING HOSPITAL STAY: 1. Cardiology, Shalom Auguste MD. 2. Electrophysiology, Francisco Joseph MD. HOSPITAL COURSE: Mr. Vasquez is a delightful 89-year-old gentleman, with a history of paroxysmal atrial fibrillation, on chronic anticoagulation with Eliquis. Previous history of cardioversion in March 2019. On the evening of admission, endorsed dizziness, palpitations, with interval worsening of dizziness, disorientation, and shortness of breath. He was seen in the [facility] Emergency Department, and found to have atrial fibrillation with rapid ventricular response. He was given a Cardizem bolus, and Cardizem infusion. Chest x-ray concerning for interval development of congestive heart failure with bilateral pulmonary infiltrates present. Mr. Vasquez was treated with Cardizem infusion, diuresis, supportive measures. Echocardiogram revealed the presence of new systolic heart failure, ejection fraction 30% to 35%. Moderately dilated left atrium, [id number] mitral regurgitation, moderate tricuspid regurgitation, aortic valve sclerosis, and mild pulmonic regurgitation noted. During hospital stay consultation with electrophysiology requested, with recommendation for medical management, with consideration for ablation in the future. As such, Cardizem transitioned to oral, dose titration beta-suzanna undertaken, and ultimately Lasix transitioned to oral maintenance regimen. Prior to discharge, will receive LifeVest placement and teaching via the [facility] corporate representative. Going forward, evaluate for interval improvement in systolic function, with subsequent discussion regarding cessation of LifeVest versus consideration for AICD. On the day of discharge, I saw and evaluated the patient, and I had an extended conversation with the patient, Mrs. Vasquez, and their daughter, and surrogate medical decision maker. Questions answered. PHYSICAL EXAMINATION: LUNGS: Clear bilaterally. HEART: Irregularly irregular with heart rate in the 70s to 80s. ABDOMEN: Soft and nontender. EXTREMITIES: No significant lower extremity edema. DISCHARGE MEDICATIONS: As follows; 1. Amiodarone 400 mg p.o. once daily, prescription provided for 30 tablets. 2. Cardizem CD 240 mg p.o. nightly at 2100 hours, prescription provided for 30 tablets. 3. Lasix 20 mg to take every other day, with instructions to increase to once daily if weight increases over 3 pounds. 4. Metoprolol tartrate 75 mg p.o. twice daily. Prescription provided. Note made to discontinue metoprolol succinate from home, so as not have two beta-blockers. 5. Synthroid 50 mcg p.o. once daily. 6. Aspirin 81 mg p.o. once daily. 7. Eliquis 5 mg p.o. twice daily. MICHAEL-I will be added in outpatient setting, due to hypotension noted at intervals during in-hospital stay and need for upward titration of rate control agents as a first priority. DIET: Low-salt/heart healthy. Heart failure instructions provided. Referral to heart failure coordinator provided by nursing staff. CONDITION ON DISCHARGE: Improved. DISCHARGE DISPOSITION: Home after LifeVest placed. Total time spent thus far in discharge planning, care, and coordination 45 minutes, greater than 50% of this time spent with the patient and family at the bedside, reviewing medications and plans. Job ID: [id number] MTDD
--- NOTE | 2019-07-04 17:18 | PDOC.CPN ---
- Subjective Date: 07/04/19 Time: 08:00 Interval history: 1. Recurrent atrial arrhythmias. a. History of persistent atrial flutter, status post CTI ablation in March 2016. b. Persistent atrial fibrillation, prompting a WILLIAN-guided cardioversion in July 2018, once the recurrent atrial fibrillation noted in November, rate control was pursued. c. Current admission with atrial fibrillation with rapid ventricular rates are noted. 2. History of premature ventricular contractions, status post left coronary cusp focus ablation in March 2016. 3. History of coronary artery disease, status post 4-vessel bypass surgery in 2007. a. Reduced left ventricular ejection fraction on echo 06/30/2019. 4. Hypertension. 5. Hyperlipidemia. He is feeling better today. No new complaints today. Rates are well controlled on amio today. - Review of Systems General: denies: fever/chills, weight/appetite/sleep changes, night sweats, fatigue Respiratory: denies: cough, congestion, shortness of breath, exercise intolerance Cardiovascular: denies: chest pain, palpitation, edema, paroxysmal nocturnal dyspnea, orthopnea Gastrointestinal: denies: nausea, vomiting, diarrhea, constipation, abd pain, GI bleeding Musculoskeletal: denies: pain, tenderness, stiffness, swelling, arthritis/ arthralgias Neurological: denies: numbness, syncope, seizure, weakness - Objective Allergies/Adverse Reactions: Allergies Allergy/AdvReac Type Severity Reaction Status Date / Time ciprofloxacin [From Cipro] Allergy Verified 06/30/19 06:38 Penicillins Allergy Verified 06/30/19 06:38 Adlvsri-Ayg-Xtp Reductase Allergy Verified 06/30/19 06:38 Inhibitor Sulfa (Sulfonamide Allergy Verified 06/30/19 06:38 Antibiotics) Visit Medications: Current Medications Acetaminophen (Tylenol) 650 mg PO Q4H PRN PRN Reason: Headache/Fever/Mild Pain (1-3) Last Admin: 07/03/19 20:08 Dose: 650 mg Hydrocodone Bitart/Acetaminophen ([place] 5/325) 1 tab PO Q4H PRN PRN Reason: Moderate Pain (4-6) Amiodarone HCl (Cordarone) 400 mg PO DAILY [facility] Last Admin: 07/04/19 08:12 Dose: 400 mg Apixaban (Eliquis) 5 mg PO BID [facility] Last Admin: 07/04/19 08:14 Dose: 5 mg Artificial Tears (Tears Naturale) 2 drop EA EYE PRN PRN PRN Reason: Dry Eyes Aspirin (Ecotrin) 81 mg PO DAILY [facility] Last Admin: 07/04/19 08:11 Dose: 81 mg Bisacodyl (Dulcolax) 10 mg SD DAILYPRN PRN PRN Reason: Constipation Calcium Carbonate (Tums) 1,000 mg PO Q4H PRN PRN Reason: Heartburn or Indigestion Diltiazem HCl (Cardizem Cd) 240 mg PO 2100 [facility] Last Admin: 07/03/19 20:08 Dose: 240 mg Famotidine (Pepcid) 20 mg PO DAILY [facility] Last Admin: 07/04/19 08:12 Dose: 20 mg Furosemide (Lasix) 40 mg PO DAILY[facility] Last Admin: 07/04/19 06:37 Dose: 40 mg Guaifenesin (Robitussin Sf) 200 mg PO Q4H PRN PRN Reason: Cough Labetalol HCl (Normodyne) 20 mg SLOW IVP Q4H PRN PRN Reason: SBP > 180 and HR >/= 70 Levothyroxine Sodium (Synthroid) 50 mcg PO 0600 [facility] Last Admin: 07/04/19 06:37 Dose: 50 mcg Loperamide HCl (Imodium) 2 mg PO PRN PRN PRN Reason: Diarrhea/Loose Stools Loratadine (Claritin) 10 mg PO DAILYPRN PRN PRN Reason: Sinus Symptoms Metoprolol Tartrate (Lopressor) 75 mg PO BID [facility] Last Admin: 07/04/19 08:11 Dose: 75 mg Ondansetron HCl (Zofran Odt) 4 mg PO Q6H PRN PRN Reason: Nausea/Vomiting Ondansetron HCl (Zofran) 4 mg IVP Q6H PRN PRN Reason: Nausea/Vomiting Senna/Docusate Sodium (Senokot S) 2 tab PO BID PRN PRN Reason: Constipation Last Admin: 07/03/19 09:27 Dose: 2 tab Sodium Chloride (Dickenson Nasal [place]ven 0.65%) 0 ml EA NARE QIDPRN PRN PRN Reason: Nasal Congestion Sodium Chloride (Flush - Normal Saline) 10 ml IVF Q12HR [facility] Last Admin: 07/04/19 09:24 Dose: Not Given Sodium Chloride (Flush - Normal Saline) 10 ml IVF PRN PRN PRN Reason: Saline Flush Throat Lozenges (Cepastat Lozenges) 1 frank PO Q2H PRN PRN Reason: Sore Throat Zolpidem Tartrate (Ambien) 5 mg PO HSPRN PRN PRN Reason: Insomnia Vital Signs & Weight: Vital Signs Temp BP Pulse Ox 07/04/19 16:17 98.2 F 07/04/19 11:13 97.9 F 07/04/19 10:07 101/72 07/04/19 08:00 98 07/04/19 07:21 98.4 F Weight 150 lb 12.739 oz - Quality Measures Condition: Atrial Fibrillation/Flutter (hx or current), Coronary Artery Disease , Heart Failure - Physical Exam General: alert & oriented x3, appears well, no apparent distress HEENT: mucus membranes moist, normocephaly Neck: supple neck, midline trachea, no JVD/HJR, no masses, no bruit, no lymphadenopathy, no thromegaly Cardiac: regular rate and rhythm, no murmur Lungs: clear to auscultation, normal breath sounds, normal exam, no wheeze, rales, rhonchi Neuro: cranial nerve 2-12 intact, grossly intact, motor function intact, sensory function intact, negative rhomberg, coordination normal, no lateralizing findings Abdomen: unremarkable, active bowel sounds, soft, non-tender, no masses, no pulsations/bruits, no hepatosplenomegaly Skin: clear Musculoskeletal: normal range of motion, no pain, no fluid collection - Labs Result Diagrams: 07/01/19 04:30 07/01/19 04:29 Troponin/CKMB Troponin I Less than 0.010 ng/mL (< 0.028) 06/30/19 04:45 - Telemetry Sinus rhythms and dysrhythmias: sinus rhythm - Assessment/Plan Assessment/Plan: 1. Atrial fibrillation, persistent -moderate rate control -associated dyspnea on exertion 2. CHADS2-VASC: 4 - continue eliquis for CVA prophylaxis 3. Cardiomyopathy -severely reduced EF -Recommend lifevest and possible ICD in the future if EF remains <35% Now on PO amiodarone taper and feeling well with improved rate control. Possible CV with Dr. Auguste as OP once amio loading is complete. Continue eliquis.
== END 2019-07-04 18:26 | disposition home or self-care (01) | DRG 291 ==
LOC: SCSER 04:24 → IMCU/EMU 05:20
PROVIDERS: ADMIT Internal Medicine; ATTEND Internal Medicine
DX: I13.0 Hypertensive heart and chronic kidney disease with heart failure and stage 1 through stage 4 chronic kidney disease, or unspecified chronic kidney disease (principal); I50.43 Acute on chronic combined systolic (congestive) and diastolic (congestive) heart failure; I48.19 Other persistent atrial fibrillation; I25.10 Atherosclerotic heart disease of native coronary artery without angina pectoris; E03.9 Hypothyroidism, unspecified; N18.3 Chronic kidney disease, stage 3 (moderate); E78.5 Hyperlipidemia, unspecified; I48.0 Paroxysmal atrial fibrillation; I08.1 Rheumatic disorders of both mitral and tricuspid valves; I42.9 Cardiomyopathy, unspecified; N40.0 Benign prostatic hyperplasia without lower urinary tract symptoms; I95.9 Hypotension, unspecified; Z95.1 Presence of aortocoronary bypass graft; Z79.899 Other long term (current) drug therapy; Z79.890 Hormone replacement therapy; Z79.82 Long term (current) use of aspirin; Z79.01 Long term (current) use of anticoagulants; Z88.0 Allergy status to penicillin; Z88.1 Allergy status to other antibiotic agents; Z88.2 Allergy status to sulfonamides; Z88.8 Allergy status to other drugs, medicaments and biological substances
CPT/HCPCS: 36415; 71045; 80053; 81001; 82550; 83735; 83880; 84443; 84484; 84550; 85025; 85610; 85730; 93005; 93010; 93306; 93798; 96365; 96376; J1940; J3490

== ENCOUNTER 2019-07-09 11:05 | Inpatient (IN) | payer MEDICARE, BC ==
[2019-07-09] MEDS ORDERED: Ondansetron PF 4 MG/2 ML Vial ONE (12:01)
[2019-07-09 12:04] LABS: #Lymphocytes 0.6 thou/uL (1.20-3.40); #Monocytes 0.6 thou/uL (0.11-0.59); #Neutrophils 7.1 thou/uL (1.40-6.50); %Basophils 0.6 % (0.0-1.0); %Eosinophils 0.6 % (0.0-10.0); %Lymphocytes 6.6 % (21.0-51.0); %Monocytes 6.7 % (0.0-10.0); %Neutrophils 85.6 % (42.0-75.0); Hemoglobin 9.4 g/dL (14.0-18.0); Mean Corpuscular Hemoglobin 28.1 pg (27.0-31.0); Mean Corpuscular Volume 87.9 fL (78.0-98.0); Mean Platelet Volume 9.3 fL (7.4-10.4); Platelet Count 121 thou/uL (130-400); RBC Distribution Width 14.7 % (11.5-14.5); Red Blood Cell (RBC) Count 3.35 mill/uL (4.70-6.10); White Blood Cell (WBC) Count 8.3 thou/uL (4.8-10.8)
[2019-07-09 12:17] LABS: ALT (SGPT) 19 U/L (8-55); AST (SGOT) 21 U/L (5-34); Albumin 3.2 g/dL (3.4-4.8); Alkaline Phosphatase 69 U/L (40-110); Anion Gap 14 mmol/L (10-20); BUN (Urea Nitrogen) 21 mg/dL (8.4-25.7); Bilirubin, Total 0.6 mg/dL (0.2-1.2); Calc. Creatinine Clearance 0 mL/min (70-130); Calcium 9.1 mg/dL (7.8-10.44); Carbon Dioxide 25 mmol/L (23-31); Chloride 98 mmol/L (98-107); Estimated GFR-MDRD 49; Globulin 4.7 g/dL (2.4-3.5); Glucose 205 mg/dL (83-110); Potassium 4.3 mmol/L (3.5-5.1); Protein, Total 7.9 g/dL (5.8-8.1); Sodium 133 mmol/L (136-145)
--- NOTE | 2019-07-09 12:24 | RAD ---
RIGHT HIP 2 VIEWS: Date: 07/09/19 HISTORY: Right hip pain. FINDINGS/IMPRESSION: Degenerative changes are present. No fracture, dislocation, or bony destruction identified. POS: OFF
--- NOTE | 2019-07-09 12:46 | CT ---
CT right hip noncontrast HISTORY: Right hip pain. FINDINGS: Mild joint space narrowing, osteophytosis, and subchondral sclerosis. Femoral head contour and cortex are maintained. No acute fracture, dislocation, or aggressive osseous erosions. Calcification evident within the arterial structures. IMPRESSION: Mild osteoarthritic changes right hip. Atherosclerosis.
[2019-07-09] MEDS ORDERED: Fentanyl 100 MCG/2 ML VIAL ONE ×2 (13:35→15:19)
[2019-07-09] MEDS ORDERED: Acetaminophen 500 MG TAB ONE (13:35)
[2019-07-09 13:55] LABS: Bilirubin Negative (Negative); Blood, Urine Negative (Negative); Clarity Clear (Clear); Glucose, Urine (Dipstick) 100 mg/dL (Negative); Leukocyte Negative (Negative); Nitrite Negative (Negative); Protein, Urine (Dipstick) Trace mg/dL (Neg-Trace)
--- NOTE | 2019-07-09 14:51 | CT ---
CT ABDOMEN AND PELVIS PERFORMED WITHOUT CONTRAST ENHANCEMENT: Date: 07/09/19 HISTORY: Right flank pain. COMPARISON: 04/05/19 study. FINDINGS: The lung bases show chronic appearing change. Stable hypodensities within the liver are present. Some of these were too small to characterize, but are most likely cysts. The spleen and pancreas regions are unremarkable. A small gallstone is noted. Right and left adrenal glands are normal. Hypodensities involving both kidneys are again noted, most likely cysts. There is no significant periaortic or mesenteric adenopathy. No free fluid is seen. Within the retroperitoneum, the right psoas muscle is markedly enlarged. There is fat stranding along the posterior margin of Gerota's fascia associated with this. The enlargement of the psoas is associ ated with some areas of increased and decreased density. No air is seen within this. Appearance is mo st suggestive of a psoas hematoma. The right iliacus muscle is not involved. There is no pelvic lymph adenopathy or mass. Review of osseous structures shows severe arthritic changes of the spine. There is a vacuum disc mate rial seen extruded at the L4 level on the left side. There appear to be multilevel areas of canal flavio nosis related to the degenerative change. IMPRESSION: 1. Markedly enlarged right psoas muscle, not present on the 04/05/19 exam. This was discussed with Chavez Tatum, who states that the patient is on Eliquis, and I suspect that this represents a large pso as muscle hematoma. I think it would be much less likely to represent an infection given the history. 2. Small gallstone. 3. Multilevel areas of canal stenosis with some extruded disc material on the left paracentral jose n of the L4 vertebral body. POS: OFF
[2019-07-09 14:55] LABS: INR-International Normal Ratio 1.8; Prothrombin Time 20.4 SEC (12.0-14.7)
[2019-07-09] MEDS ORDERED: Ondansetron ODT 4 MG TAB SL PRN (16:39)
[2019-07-09] MEDS ORDERED: Ondansetron PF 4 MG/2 ML Vial IVP PRN (16:39)
[2019-07-09 17:36] VITALS: BMI 23.0
[2019-07-09] MEDS: Fentanyl 100 MCG/2 ML VIAL SLOW IVP PRN ×2 (17:52→20:42)
[2019-07-09] MEDS ORDERED: Senokot S 8.6-50 MG TAB PO PRN (21:28)
[2019-07-09] MEDS ORDERED: Sodium Chloride 0.9% 1,000 ML IV SCH (21:30)
[2019-07-09] MEDS ORDERED: Fentanyl 100 MCG/2 ML VIAL SLOW IVP PRN ×3 (21:33→23:14)
[2019-07-09 22:06] LABS: Hemoglobin 10.1 g/dL (14.0-18.0)
[2019-07-09] MEDS ORDERED: Famotidine 20 MG TAB PO SCH (22:15)
[2019-07-09] MEDS ORDERED: Metoprolol Tartrate 50 MG TAB PO SCH (22:15)
[2019-07-09] MEDS: Acetaminophen 325 MG TAB PO PRN (22:49)
[2019-07-10] MEDS: Fentanyl 100 MCG/2 ML VIAL SLOW IVP SCH ×2 (00:47→03:12)
[2019-07-10] MEDS ORDERED: Morphine 2 MG/ML SYRINGE SLOW IVP PRN (02:28)
--- NOTE | 2019-07-10 02:38 | HP ---
PRIMARY CARE PHYSICIAN: Dr. Renae Moore. CHIEF COMPLAINT: Hip pain. HISTORY OF PRESENT ILLNESS: Mr. Vasquez is a very pleasant 89-year-old man, who was brought to the ER at [facility] from Urgent Care for evaluation of constant pain in his right hip x2 days. Denies injury or fall. Reports that he has a LifeVest on, which is new for him, was placed about a week ago on 07/04/2019 after he was found on his last admission from 06/30 to 07/04, to have systolic congestive heart failure with acute decompensation with an ejection fraction of 30% to 35%. He also has a history of persistent atrial fibrillation initially with rapid ventricular response, but then improved over that hospitalization with medication titration. Also has chronic kidney disease, stage 3; hypothyroidism; coronary artery history with a history of prior coronary artery bypass grafting; acute combined systolic plus diastolic congestive heart failure; moderate tricuspid regurgitation; moderate to severe mitral regurgitation; and chronic anticoagulation. He states that initially he found the LifeVest to be awkward and secured it to his pants on the right side to help secure it down, so that it would not move around as much when he was trying to ambulate. He describes the pain in his right hip started gradually and then became unbearable today, so he went to Urgent Care. He had a hip x-ray and lower extremity CT, which were unremarkable and then an abdomen and pelvis CT was done, which found a markedly enlarged right psoas muscle, which was not present on the 04/05/2019 exam. Radiology talked to Dr. Tatum, who stated that the patient was on Eliquis, and Radiology believes that the enlargement of the right psoas muscle was due to a hematoma. Less likely that would represent an infection given the history. I also found a small gallstone, multilevel areas of canal stenosis with some extruding disk material on the left paracentral margin of the L4 vertebral body. The patient required quite a bit of pain medication. While in the ER, he was given several doses of fentanyl 25 mcg, Tylenol, 500 mL of normal saline, Zofran, and 2 mg of morphine. It was felt necessary to temporarily at least hold the Eliquis and the patient's aspirin. He was admitted to initially the medical floor for pain management and evaluation for this hematoma, but due to multiple comorbidities and LifeVest, which is relatively new and the atrial fibrillation, for which he is on Eliquis, it was felt necessary to transfer him to the telemetry unit, then to have Cardiology be consulted on the management of the Eliquis and the LifeVest. The patient had taken it off, states that it aggravates his right hip pain. REVIEW OF SYSTEMS: All other review of systems reviewed with the patient and negative unless mentioned in the HPI. PAST MEDICAL HISTORY: As stated in the HPI. Also has a history of nephrolithiasis, atrial flutter, hypothyroidism, and chronic anticoagulation. PAST SURGICAL HISTORY: CABG in 2007, WILLIAN, cardioversion in 2018 and 2019, and radiofrequency ablation for the atrial flutter. PSYCHIATRIC HISTORY: None. FAMILY HISTORY: Positive for hypertension and stroke in his father. SOCIAL HISTORY: He is , lives at home with his . No history of tobacco, alcohol, or drug use. ALLERGIES: PENICILLIN AND SULFA. DOES NOT TOLERATE STATIN THERAPY. HOME MEDICATIONS: 1. Eliquis 5 mg p.o. b.i.d. 2. Aspirin 81 mg p.o. daily. 3. Levothyroxine 50 mcg p.o. daily. 4. Cordarone 400 mg p.o. daily. 5. Cardizem CD 240 mg p.o. at 2100 hours. 6. Lasix every other day. 7. Metoprolol tartrate 75 mg p.o. b.i.d. PHYSICAL EXAMINATION: VITAL SIGNS: Blood pressure 150/96, pulse is 110, respiration rate is 16, temperature is 98.2, and pO2 sats are 98% on room air. CONSTITUTIONAL: The patient appears nontoxic, is alert and oriented to person, place, and time. NECK: Normal range of motion. Trachea is midline. RESPIRATORY: Breath sounds are clear. CHEST: Normal. CARDIOVASCULAR: Regular heart rate and rhythm. Heart sounds are normal. ABDOMEN: Bowel sounds are heard. Abdomen is nontender. BACK: Normal range of motion. EXTREMITIES: No tenderness, upper extremity. Point tenderness to right psoas muscle, dorsal. Petechiae present to bilateral lower extremities. Normal range of motion. Motor strength is normal. Pedal pulses are normal. Homans' sign is negative. No edema is noted. NEURO: The patient is oriented to person, place, and time. Speech is normal. SKIN: Warm and dry. Normal in color. LABORATORY DATA: White blood cell count 8.3, hemoglobin 9.4, hematocrit is 29.5, and platelet count is 121. Chemistry; sodium is 133 and creatinine is 1.37, this appears to be baseline. Glucose 205. Lactic acid 1.3, albumin 3.2, and lipase is 13. Urine is negative except for some glucose. ASSESSMENT AND PLAN: 1. Hematoma to right psoas muscle, thought to be related to Eliquis and patient wearing a new LifeVest for at least a week. He denied any injury or trauma. Fentanyl 25 mcg q.2 hours as needed for pain and Zofran 4 mg q.6 hours as needed for nausea. We will obtain PT evaluation. Hold Eliquis and aspirin for now. Ask Cardiology to consult. If pain does not improve, obtaining General Surgery consult might be indicated. 2. History of congestive heart failure. The patient was fitted for a LifeVest about a week ago. We will ask Cardiology to consult. Restart Lasix. 3. Hypertension. Restart home medications. We will trend that p.r.n. as needed. 4. Hypothyroidism. We will restart home medications. Thyroid was checked on last admission. Dose is appropriate. 5. Case discussed with Dr. Caputo, who agrees with plan. 6. Gastrointestinal prophylaxis has been started. The patient has been on Eliquis, we will hold for now. BOB baeza as the patient can tolerate towards the psoas muscle hematoma. 7. Hospital course is dependent on clinical findings. Job ID: [id number]
[2019-07-10] MEDS ORDERED: Morphine 2 MG/ML SYRINGE SLOW IVP SCH (03:45)
[2019-07-10 05:03] LABS: #Lymphocytes 1.2 thou/uL (1.20-3.40); #Monocytes 0.8 thou/uL (0.11-0.59); #Neutrophils 9.4 thou/uL (1.40-6.50); %Basophils 0.1 % (0.0-1.0); %Eosinophils 0.1 % (0.0-10.0); %Lymphocytes 10.5 % (21.0-51.0); %Monocytes 6.9 % (0.0-10.0); %Neutrophils 82.5 % (42.0-75.0); Hemoglobin 8.8 g/dL (14.0-18.0); Mean Corpuscular HGB CONC 32.1 g/dL (32.0-36.0); Mean Corpuscular Volume 90.2 fL (78.0-98.0); Mean Platelet Volume 8.9 fL (7.4-10.4); Platelet Count 126 thou/uL (130-400); Red Blood Cell (RBC) Count 3.04 mill/uL (4.70-6.10); White Blood Cell (WBC) Count 11.4 thou/uL (4.8-10.8)
[2019-07-10] MEDS: Levothyroxine Sodium 50 MCG TAB PO SCH (05:06)
[2019-07-10] MEDS: Fentanyl 100 MCG/2 ML VIAL SLOW IVP PRN ×4 (05:07→21:46)
[2019-07-10 05:25] LABS: ALT (SGPT) 13 U/L (8-55); AST (SGOT) 21 U/L (5-34); Albumin 3.2 g/dL (3.4-4.8); Alkaline Phosphatase 67 U/L (40-110); Anion Gap 13 mmol/L (10-20); BUN (Urea Nitrogen) 18 mg/dL (8.4-25.7); Bilirubin, Total 0.8 mg/dL (0.2-1.2); Calc. Creatinine Clearance 44 mL/min (70-130); Carbon Dioxide 23 mmol/L (23-31); Chloride 99 mmol/L (98-107); Estimated GFR-MDRD 61; Globulin 4.5 g/dL (2.4-3.5); Glucose 126 mg/dL (83-110); Potassium 4.5 mmol/L (3.5-5.1); Protein, Total 7.7 g/dL (5.8-8.1); Sodium 130 mmol/L (136-145)
[2019-07-10] MEDS: Metoprolol Tartrate 50 MG TAB PO SCH ×2 (08:04→21:44)
[2019-07-10] MEDS: Furosemide 20 MG TAB PO SCH (08:04)
[2019-07-10] MEDS ORDERED: FLU VACC TS2019-20(65YR UP)/PF 180 MCG/0.5 ML SYRINGE IM ONE (09:00)
[2019-07-10] MEDS ORDERED: Amiodarone 200 MG TAB PO SCH (09:00)
[2019-07-10] MEDS: Ondansetron PF 4 MG/2 ML Vial IVP PRN (09:40)
[2019-07-10 10:28] LABS: Hemoglobin 9.2 g/dL (14.0-18.0)
--- NOTE | 2019-07-10 15:45 | PDOC.HOSPP ---
- Subjective Subjective: Doing ok. Pain in manageable. - Objective Vital Signs & Weight: Vital Signs (12 hours) Temp Pulse Resp BP Pulse Ox 07/10/19 11:32 97.7 F 90 18 128/80 07/10/19 07:44 97.9 F 91 18 129/85 94 L 07/10/19 04:00 97.3 F L 107 H 17 148/93 H 94 L Weight Weight 156 lb I&O: 07/09/19 07/10/19 07/11/19 06:59 06:59 06:59 Intake Total 1150 Balance 1150 Result Diagrams: 07/10/19 10:12 07/10/19 04:37 Hospitalist ROS - Medication Medications: Active Medications Generic Name Dose Route Start Last Admin Trade Name Freq PRN Reason Stop Dose Admin Acetaminophen 650 mg 07/09/19 21:28 07/09/19 22:49 Tylenol PO 650 mg Q4H PRN Administration Headache/Fever/Mild Pain (1-3) Amiodarone HCl 400 mg 07/10/19 09:00 07/10/19 08:03 Cordarone PO 400 mg DAILY GENNY Administration Fentanyl 50 mcg 07/10/19 04:26 07/10/19 12:46 Sublimaze SLOW IVP 50 mcg Q2H PRN Administration Severe Pain (7-10) Furosemide 20 mg 07/10/19 09:00 07/10/19 08:04 Lasix PO 20 mg Q2DAYS GENNY Administration Levothyroxine Sodium 50 mcg 07/10/19 06:00 07/10/19 05:06 Synthroid PO 50 mcg 0600 GENNY Administration Metoprolol Tartrate 75 mg 07/10/19 09:00 07/10/19 08:04 Lopressor PO 75 mg BID GENNY Administration Ondansetron HCl 4 mg 07/10/19 09:21 07/10/19 09:40 Zofran IVP 4 mg Q6H PRN Administration Nausea/Vomiting - Exam General Appearance: NAD, awake alert Heart: no murmur, no gallops, no rubs, normal peripheral pulses, irregular Respiratory: CTAB, no wheezes, no rales, no ronchi, normal chest expansion, no tachypnea, normal percussion Gastrointestinal: soft, non-tender, non-distended, normal bowel sounds, no palpable masses, no hepatomegaly, no splenomegaly, no bruit Skin: normal turgor Neurological: cranial nerve grossly intact Musculoskeletal: normal tone Psychiatric: normal affect, normal behavior, A&O x 3 Hosp A/P (1) Retroperitoneal hematoma Code(s): K66.1 - HEMOPERITONEUM Status: Acute (2) Atrial fibrillation with RVR Code(s): I48.91 - UNSPECIFIED ATRIAL FIBRILLATION Status: Acute (3) Moderate tricuspid regurgitation Code(s): I07.1 - RHEUMATIC TRICUSPID INSUFFICIENCY Status: Acute (4) Severe mitral regurgitation Code(s): I34.0 - NONRHEUMATIC MITRAL (VALVE) INSUFFICIENCY Status: Acute (5) CAD (coronary artery disease) Code(s): I25.10 - ATHSCL HEART DISEASE OF [place] CORONARY ARTERY W/O ANG PCTRS Status: Chronic (6) CKD (chronic kidney disease) stage 3, GFR 30-59 ml/min Code(s): N18.3 - CHRONIC KIDNEY DISEASE, STAGE 3 (MODERATE) Status: Chronic (7) Chronic anticoagulation Code(s): Z79.01 - JAIL (CURRENT) USE OF 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 Follow H and H. Pain management. Cardiology consult. Patient has declined further use of the LifeVest.
--- NOTE | 2019-07-10 17:55 | CON ---
DATE OF CONSULTATION: REASON FOR CONSULTATION: Psoas muscle hematoma. HISTORY OF PRESENT ILLNESS: Mr. Vasquez is a pleasant 89-year-old gentleman, whom I have seen and evaluated in the past. He has a history of CAD, status post bypass surgery. He has also had issues with atrial fibrillation. He was recently in the hospital for atrial fibrillation. Rate control recommended. He was placed on amio in case he failed rate control. He recently presented with significant right hip pain. He was diagnosed with a psoas muscle hematoma. Anticoagulation has been discontinued. PAST MEDICAL HISTORY: As above including nephrolithiasis, atrial flutter, hypothyroidism. SOCIAL HISTORY: He is currently . No current tobacco or alcohol use. HOME MEDICATIONS: Include: 1. Eliquis. 2. Aspirin. 3. Levothyroxine. 4. Cordarone. 5. Cardizem. 6. Lasix. 7. Metoprolol. REVIEW OF SYSTEMS: A 10-point review of systems is reviewed as above, otherwise negative. PHYSICAL EXAMINATION: GENERAL: Patient is a pleasant gentleman who is in no acute distress. The patient appears their stated age. VITAL SIGNS: Blood pressure 131/89, pulse 89, temperature 98.3. NEUROLOGIC: The patient is alert and oriented x3 with no focal neurologic deficits. HEENT: Sclerae without icterus. Mouth has moist mucous membranes with normal pallor. NECK: No JVD. Carotid upstroke brisk. No bruits bilaterally. LUNGS: Clear to auscultation with unlabored respirations. BACK: No scoliosis or kyphosis. CARDIAC: Irregularly irregular. ABDOMEN: Soft, nontender, nondistended. No peritoneal signs present. No hepatosplenomegaly. No abnormal striae. EXTREMITIES: 2+ femoral and 2+ dorsalis pedis pulses. No cyanosis, clubbing, or edema. SKIN: No gross abnormalities. PERTINENT LABORATORY DATA: Hemoglobin 9.2 down from 10.1. Creatinine 1.13. Platelet count 126. IMPRESSION: 1. Psoas muscle hematoma. 2. Atrial fibrillation. 3. Coronary artery disease. 4. Status post bypass surgery. RECOMMENDATIONS: From a CV standpoint, we would recommend stopping anticoagulation therapy. There is a risk of stroke given his history of atrial fibrillation, but the risks outweigh the benefits on continued anticoagulation treatment. We would likely stop anticoagulation therapy over the next [address] scan. I did convey this to both the patient and his family. They are both understanding. Would stop amiodarone therapy. Continue Cardizem in addition to metoprolol as prescribed. As long as his rate is controlled and his pain is controlled, it would be okay from my standpoint to transfer to medical. Otherwise, I have no further recommendations. Job ID: [id number]
[2019-07-10 18:12] LABS: Hemoglobin 8.6 g/dL (14.0-18.0)
[2019-07-10] MEDS: Famotidine 20 MG TAB PO SCH (21:45)
[2019-07-11] MEDS: Fentanyl 100 MCG/2 ML VIAL SLOW IVP PRN ×5 (03:13→20:05)
[2019-07-11] MEDS: Levothyroxine Sodium 50 MCG TAB PO SCH (05:28)
[2019-07-11] MEDS: Metoprolol Tartrate 50 MG TAB PO SCH ×2 (09:25→20:06)
[2019-07-11] MEDS: Bisacodyl 5 MG TAB PO PRN (09:25)
[2019-07-11] MEDS: Ondansetron PF 4 MG/2 ML Vial IVP PRN (17:03)
--- NOTE | 2019-07-11 19:15 | PRG ---
DATE OF SERVICE: 07/11/2019 SUBJECTIVE: Mr. Vasquez is doing better. He only complains of constipation. He has been receiving p.o. medications for pain. He has developed constipation. Heart rate remains elevated in the one-teens. OBJECTIVE: VITAL SIGNS: Heart rate 111, blood pressure 126/72. LUNGS: Clear to auscultation. HEART: Irregularly irregular. ABDOMEN: Soft, nontender, nondistended. EXTREMITIES: No edema. IMPRESSION: 1. Psoas muscle hematoma. 2. Atrial fibrillation. RECOMMENDATIONS: 1. Increase Cardizem from 240 q.p.m. to 360 q.p.m. 2. Continue beta-suzanna therapy. 3. Discontinue amiodarone given risk of cardioversion without being able to use anticoagulation therapy. 4. Did not recommend cardioversion given recent psoas muscle hematoma. Job ID: [id number]
[2019-07-11] MEDS: Famotidine 20 MG TAB PO SCH (20:08)
--- NOTE | 2019-07-11 22:03 | PDOC.HOSPP ---
- Subjective Subjective: Has had some problems with feeling constipated. Pain intermittently. - Objective Vital Signs & Weight: Vital Signs (12 hours) Temp Pulse Pulse Resp BP BP BP 07/11/19 19:57 99.8 F H 124 H 18 145/88 H 07/11/19 15:34 97.8 F 71 20 115/71 07/11/19 13:49 111 H 119/72 07/11/19 12:00 97.4 F L 120 H 21 H 126/72 Pulse Ox 07/11/19 19:57 97 07/11/19 15:34 92 L 07/11/19 13:49 07/11/19 12:00 94 L Weight Weight 156 lb I&O: 07/10/19 07/11/19 07/12/19 06:59 06:59 06:59 Intake Total 1150 1070 800 Output Total 845 Balance 1150 225 800 Result Diagrams: 07/10/19 18:03 07/10/19 04:37 Hospitalist ROS - Medication Medications: Active Medications Generic Name Dose Route Start Last Admin Trade Name Freq PRN Reason Stop Dose Admin Acetaminophen 650 mg 07/09/19 21:28 07/09/19 22:49 Tylenol PO 650 mg Q4H PRN Administration Headache/Fever/Mild Pain (1-3) Bisacodyl 5 mg 07/11/19 08:26 07/11/19 09:25 Dulcolax PO 5 mg DAILYPRN PRN Administration Constipation Diltiazem HCl 360 mg 07/11/19 21:00 07/11/19 20:06 Cardizem Cd PO 360 mg 2100 GENNY Administration Famotidine 20 mg 07/10/19 21:00 07/11/19 20:08 Pepcid PO 20 mg QPM GENNY Administration Fentanyl 50 mcg 07/10/19 04:26 07/11/19 20:05 Sublimaze SLOW IVP 50 mcg Q2H PRN Administration Severe Pain (7-10) Furosemide 20 mg 07/10/19 09:00 07/10/19 08:04 Lasix PO 20 mg Q2DAYS GENNY Administration Levothyroxine Sodium 50 mcg 07/10/19 06:00 07/11/19 05:28 Synthroid PO 50 mcg 0600 GENNY Administration Metoprolol Tartrate 75 mg 07/10/19 09:00 07/11/19 20:06 Lopressor PO 75 mg BID GENNY Administration Ondansetron HCl 4 mg 07/10/19 09:21 07/11/19 17:03 Zofran IVP 4 mg Q6H PRN Administration Nausea/Vomiting - Exam General Appearance: NAD, awake alert Heart: no murmur, irregular Respiratory: CTAB, no wheezes, no rales, no ronchi, normal chest expansion, no tachypnea, normal percussion Gastrointestinal: soft, non-tender, non-distended, normal bowel sounds, no palpable masses, no hepatomegaly, no splenomegaly, no bruit Skin: normal turgor Musculoskeletal: normal tone Psychiatric: normal affect, normal behavior, A&O x 3 Hosp A/P (1) Retroperitoneal hematoma Code(s): K66.1 - HEMOPERITONEUM Status: Acute (2) Atrial fibrillation with RVR Code(s): I48.91 - UNSPECIFIED ATRIAL FIBRILLATION Status: Acute (3) Moderate tricuspid regurgitation Code(s): I07.1 - RHEUMATIC TRICUSPID INSUFFICIENCY Status: Acute (4) Severe mitral regurgitation Code(s): I34.0 - NONRHEUMATIC MITRAL (VALVE) INSUFFICIENCY Status: Acute (5) CAD (coronary artery disease) Code(s): I25.10 - ATHSCL HEART DISEASE OF [place] CORONARY ARTERY W/O ANG PCTRS Status: Chronic (6) CKD (chronic kidney disease) stage 3, GFR 30-59 ml/min Code(s): N18.3 - CHRONIC KIDNEY DISEASE, STAGE 3 (MODERATE) Status: Chronic (7) Chronic anticoagulation Code(s): 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 Follow H and H. Pain management. Cardiology consult. Patient has declined further use of the LifeVest. Continue BB and CCB for the afib rate control. PRN for constipation. Modest activity.
[2019-07-11 22:20] LABS: Hemoglobin 7.8 g/dL (14.0-18.0)
[2019-07-12] MEDS: Fentanyl 100 MCG/2 ML VIAL SLOW IVP PRN ×2 (04:01→23:06)
[2019-07-12 05:20] LABS: Hemoglobin 9.2 g/dL (14.0-18.0)
[2019-07-12] MEDS: Levothyroxine Sodium 50 MCG TAB PO SCH (06:02)
--- NOTE | 2019-07-12 09:06 | PDOC.HOSPP ---
- Subjective Encounter Date: 07/12/19 Encounter Time: 09:04 Subjective: Doing a little better. Had a small bowel movement yesterday, but not much. Still feels a little distended. Pain from the hematoma is better. No more spasms overnight. - Objective Vital Signs & Weight: Vital Signs (12 hours) Temp Pulse Pulse Resp BP BP BP 07/12/19 07:45 98.1 F 130 H 20 139/83 07/12/19 04:00 98.1 F 120 H 20 150/93 H 07/12/19 02:30 98.8 F 103 H 18 132/71 07/12/19 00:00 07/11/19 23:55 97.9 F 101 H 16 132/68 07/11/19 23:39 99.5 F 102 H 16 122/61 Pulse Ox 07/12/19 07:45 96 07/12/19 04:00 94 L 07/12/19 02:30 95 07/12/19 00:00 96 07/11/19 23:55 07/11/19 23:39 Weight Weight 156 lb I&O: 07/11/19 07/12/19 07/13/19 06:59 06:59 06:59 Intake Total 1070 1200 Output Total 845 300 Balance 225 900 Result Diagrams: 07/12/19 04:24 07/10/19 04:37 Hospitalist ROS - Medication Medications: Active Medications Generic Name Dose Route Start Last Admin Trade Name Freq PRN Reason Stop Dose Admin Acetaminophen 650 mg 07/09/19 21:28 07/09/19 22:49 Tylenol PO 650 mg Q4H PRN Administration Headache/Fever/Mild Pain (1-3) Bisacodyl 5 mg 07/11/19 08:26 07/11/19 09:25 Dulcolax PO 5 mg DAILYPRN PRN Administration Constipation Diltiazem HCl 360 mg 07/11/19 21:00 07/11/19 20:06 Cardizem Cd PO 360 mg 2100 GENNY Administration Famotidine 20 mg 07/10/19 21:00 07/11/19 20:08 Pepcid PO 20 mg QPM GENNY Administration Fentanyl 50 mcg 07/10/19 04:26 07/12/19 04:01 Sublimaze SLOW IVP 50 mcg Q2H PRN Administration Severe Pain (7-10) Furosemide 20 mg 07/10/19 09:00 07/10/19 08:04 Lasix PO 20 mg Q2DAYS GENNY Administration Levothyroxine Sodium 50 mcg 07/10/19 06:00 07/12/19 06:02 Synthroid PO 50 mcg 0600 GENNY Administration Ondansetron HCl 4 mg 07/10/19 09:21 07/11/19 17:03 Zofran IVP 4 mg Q6H PRN Administration Nausea/Vomiting - Exam General Appearance: NAD, awake alert Heart: no murmur, no gallops, no rubs, irregular Respiratory: CTAB, no wheezes, no rales, no ronchi, normal chest expansion, no tachypnea, normal percussion Gastrointestinal: soft, non-tender, distended (Modest. Slightly high pitched bowel sounds.) Hosp A/P (1) Retroperitoneal hematoma Code(s): K66.1 - HEMOPERITONEUM Status: Acute (2) Atrial fibrillation with RVR Code(s): I48.91 - UNSPECIFIED ATRIAL FIBRILLATION Status: Acute (3) Moderate tricuspid regurgitation Code(s): I07.1 - RHEUMATIC TRICUSPID INSUFFICIENCY Status: Acute (4) Severe mitral regurgitation Code(s): I34.0 - NONRHEUMATIC MITRAL (VALVE) INSUFFICIENCY Status: Acute (5) CAD (coronary artery disease) Code(s): I25.10 - ATHSCL HEART DISEASE OF [place] CORONARY ARTERY W/O ANG PCTRS Status: Chronic (6) CKD (chronic kidney disease) stage 3, GFR 30-59 ml/min Code(s): N18.3 - CHRONIC KIDNEY DISEASE, STAGE 3 (MODERATE) Status: Chronic (7) Chronic anticoagulation Code(s): 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 Follow H and H. Required transfusion last night due to the downward trend and the persistent tachycardia. Pain management. Cardiology consult. Patient has declined further use of the LifeVest. Continue BB and CCB for the afib rate control. Dosing titrated by Cards. Digoxin added to control the tachycardia. JANETT Auguste. PRN for constipation. Add Mag Citrate today. Modest activity.
[2019-07-12] MEDS: Furosemide 20 MG TAB PO SCH (09:54)
[2019-07-12] MEDS: Bisacodyl 5 MG TAB PO PRN (09:54)
[2019-07-12] MEDS: Metoprolol Tartrate 50 MG TAB PO SCH ×2 (09:54→21:23)
[2019-07-12] MEDS ORDERED: Magnesium Citrate 300 ML BOT PO SCH (10:00)
--- NOTE | 2019-07-12 11:01 | PRG ---
DATE OF SERVICE: 07/12/2019 SUBJECTIVE: Mr. Vasquez is doing well. His heart rate continues to be in the 90s to 100s, although he is currently asymptomatic. OBJECTIVE: VITAL SIGNS: Blood pressure 150/93, pulse 120, respirations 20. LUNGS: Clear to auscultation. HEART: Irregularly irregular. ABDOMEN: Soft, nontender, nondistended. EXTREMITIES: No edema. PERTINENT LABORATORY DATA: Hemoglobin 9.2. Creatinine 1.13. IMPRESSION: 1. Atrial fibrillation with rapid ventricular response. 2. Recent psoas muscle hematoma. 3. Recent transfusion. RECOMMENDATIONS: 1. We will increase beta-suzanna therapy. 2. He is currently on Cardizem 360 q.a.m. 3. We will load with digoxin up to 1 mg, then 0.125 mg q.a.m. as maintenance dose. 4. Avoid cardioversion given recent psoas muscle hematoma and the patient not able to be anticoagulated for several weeks. Job ID: [id number]
[2019-07-12] MEDS: Ondansetron PF 4 MG/2 ML Vial IVP PRN (11:15)
[2019-07-12] MEDS: Digoxin 0.25 MG TAB PO SCH ×2 (14:19→18:25)
[2019-07-12] MEDS: Famotidine 20 MG TAB PO SCH (21:23)
[2019-07-12] MEDS ORDERED: Metoprolol Tartrate 5 MG/5 ML VIAL IVP SCH (22:15)
[2019-07-13] MEDS: Digoxin 0.25 MG TAB PO SCH ×2 (01:35→06:01)
[2019-07-13] MEDS: Acetaminophen 325 MG TAB PO PRN (03:59)
[2019-07-13] MEDS: Levothyroxine Sodium 50 MCG TAB PO SCH (05:32)
[2019-07-13 08:15] LABS: #Eosinphils 0.1 thou/uL (0.0-0.7); #Neutrophils 10.3 thou/uL (1.40-6.50); %Basophils 0.2 % (0.0-1.0); %Lymphocytes 8.1 % (21.0-51.0); %Monocytes 8.2 % (0.0-10.0); %Neutrophils 82.5 % (42.0-75.0); Anion Gap 11 mmol/L (10-20); Anisocytosis SLIGHT = 6-15 cells (100X) (0-5/hpf); BUN (Urea Nitrogen) 18 mg/dL (8.4-25.7); Calc. Creatinine Clearance 54 mL/min (70-130); Calcium 8.5 mg/dL (7.8-10.44); Carbon Dioxide 21 mmol/L (23-31); Chloride 98 mmol/L (98-107); Estimated GFR-MDRD 77; Glucose 106 mg/dL (83-110); Hemoglobin 9.3 g/dL (14.0-18.0); MDiff Complete? YES; Mean Corpuscular HGB CONC 32.6 g/dL (32.0-36.0); Mean Corpuscular Hemoglobin 28.7 pg (27.0-31.0); Mean Corpuscular Volume 88.1 fL (78.0-98.0); Mean Platelet Volume 8.8 fL (7.4-10.4); Platelet Count 124 thou/uL (130-400); Platelet Morphology Comment Appears Decreased; Potassium 3.9 mmol/L (3.5-5.1); RBC Distribution Width 14.3 % (11.5-14.5); Red Blood Cell (RBC) Count 3.23 mill/uL (4.70-6.10); Sodium 126 mmol/L (136-145); White Blood Cell (WBC) Count 12.5 thou/uL (4.8-10.8)
[2019-07-13] MEDS: Digoxin 0.125 MG TAB PO SCH (08:55)
[2019-07-13] MEDS: Metoprolol Tartrate 50 MG TAB PO SCH (08:56)
[2019-07-13] MEDS ORDERED: Sacubitril 24.5 MG/Valsartan 25.5 MG TABLET PO SCH (09:30)
[2019-07-13] MEDS ORDERED: Furosemide 20 MG/2 ML VIAL SLOW IVP SCH (10:00)
--- NOTE | 2019-07-13 14:37 | PDOC.HOSPP ---
- Subjective Subjective: Seen and examined. Patient with cough with productive white foamy sputum. Patient breathing well on room air. Does get mildly short of breath with laying flat. No lower extremity edema. Heart rate is improved on current medications per cardiology. Patient and family interested in rehabilitation placement to regain his strength. - Objective Vital Signs & Weight: Vital Signs (12 hours) Temp Pulse Resp BP Pulse Ox 07/13/19 12:11 97.5 F L 78 18 124/59 L 95 07/13/19 08:55 85 07/13/19 08:06 98.2 F 75 19 129/63 93 L 07/13/19 06:01 84 07/13/19 04:00 98.6 F 78 16 147/68 H 94 L Weight Weight 156 lb I&O: 07/12/19 07/13/19 07/14/19 06:59 06:59 06:59 Intake Total 1200 730 Output Total 300 650 Balance 900 80 Result Diagrams: 07/13/19 07:25 07/13/19 07:25 Radiology Reviewed by me: Yes (Echo) Hospitalist ROS - Review of Systems All other systems reviewed; all pertinent +/- noted in HPI/Subj - Medication Medications: Active Medications Generic Name Dose Route Start Last Admin Trade Name Freq PRN Reason Stop Dose Admin Acetaminophen 650 mg 07/09/19 21:28 07/13/19 03:59 Tylenol PO 650 mg Q4H PRN Administration Headache/Fever/Mild Pain (1-3) Bisacodyl 5 mg 07/11/19 08:26 07/12/19 09:54 Dulcolax PO 5 mg DAILYPRN PRN Administration Constipation Digoxin 0.125 mg 07/13/19 09:00 07/13/19 08:55 Lanoxin PO 0.125 mg DAILY GENNY Administration Famotidine 20 mg 07/10/19 21:00 07/12/19 21:23 Pepcid PO 20 mg QPM GENNY Administration Fentanyl 50 mcg 07/10/19 04:26 07/12/19 23:06 Sublimaze SLOW IVP 50 mcg Q2H PRN Administration Severe Pain (7-10) Levothyroxine Sodium 50 mcg 07/10/19 06:00 07/13/19 05:32 Synthroid PO 50 mcg 0600 GENNY Administration Ondansetron HCl 4 mg 07/10/19 09:21 07/12/19 11:15 Zofran IVP 4 mg Q6H PRN Administration Nausea/Vomiting - Exam General Appearance: NAD, awake alert Eye: anicteric sclera ENT: normocephalic atraumatic, moist mucosa Neck: supple, symmetric, no lymphadenopathy Heart: no murmur, no gallops, no rubs Heart - other findings: Rate contolled this AM Respiratory: no wheezes, no ronchi, normal chest expansion, no tachypnea, rales Gastrointestinal: soft, non-tender, non-distended, no guarding, no rigidity Extremities: no edema Skin: no lesions, no rashes Neurological: cranial nerve grossly intact, no focal deficits Musculoskeletal: no muscle wasting, generalized weakness Psychiatric: normal affect, A&O x 3 Hosp A/P (1) Anemia Code(s): D64.9 - ANEMIA, UNSPECIFIED Status: Acute (2) Cardiomyopathy Code(s): I42.9 - CARDIOMYOPATHY, UNSPECIFIED Status: Acute (3) Hyponatremia Code(s): E87.1 - HYPO-OSMOLALITY AND HYPONATREMIA Status: Acute (4) Retroperitoneal hematoma Code(s): K66.1 - HEMOPERITONEUM Status: Acute (5) 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 Code(s): I50.41 - ACUTE COMBINED SYSTOLIC AND DIASTOLIC (CONGESTIVE) HRT FAIL Status: Acute (6) Atrial fibrillation with RVR Code(s): I48.91 - UNSPECIFIED ATRIAL FIBRILLATION Status: Acute (7) Moderate tricuspid regurgitation Code(s): I07.1 - RHEUMATIC TRICUSPID INSUFFICIENCY Status: Acute (8) Severe mitral regurgitation Code(s): I34.0 - NONRHEUMATIC MITRAL (VALVE) INSUFFICIENCY Status: Acute (9) CAD (coronary artery disease) Code(s): I25.10 - ATHSCL HEART DISEASE OF [place] CORONARY ARTERY W/O ANG PCTRS Status: Chronic (10) CKD (chronic kidney disease) stage 3, GFR 30-59 ml/min Code(s): N18.3 - CHRONIC KIDNEY DISEASE, STAGE 3 (MODERATE) Status: Chronic (11) Chronic anticoagulation Code(s): 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 Heart rate is now controlled on a combination of digoxin, Cardizem, and metoprolol per cardiology. Patient not willing to wear life vest any longer Hgb stable after blood transfusion continue other medications is able replace electrolytes as needed physical therapy/occupational therapy
[2019-07-13] MEDS: Ondansetron PF 4 MG/2 ML Vial IVP PRN (18:26)
[2019-07-13] MEDS ORDERED: Promethazine HCl 25 MG/ML VIAL IM/IV PRN (19:49)
--- NOTE | 2019-07-13 20:39 | RAD ---
EXAM: Chest 2 views: HISTORY: Cough COMPARISON: 06/30/2019 FINDINGS: Stable appearing pleural and parenchymal opacity changes in the bases and costophrenic angle blunting from prior study. Postop midline sternotomy. Stable biapical pleural thickening. Heart size:Within normal limits. Lungs:Clear of acute process. Atherosclerotic changes of the aorta. No confluent pneumonia or overt edema or pneumothorax. IMPRESSION: Atherosclerosis of the aorta. Stable appearing bilateral costophrenic angle blunting and minimal pleural-based parenchymal changes. No acute process.
[2019-07-13] MEDS: Famotidine 20 MG TAB PO SCH (22:01)
[2019-07-14] MEDS ORDERED: ALPRAZolam 0.5 MG TAB PO SCH (02:00)
[2019-07-14 04:52] LABS: Bilirubin Negative (Negative); Blood, Urine Negative (Negative); Clarity Turbid (Clear); Glucose, Urine (Dipstick) Normal (Negative); Leukocyte 500 Leu/uL (Negative); Nitrite Negative (Negative); Protein, Urine (Dipstick) 30 mg/dL (Neg-Trace); RBC/HPF 0-3 HPF (0-3); Squamous Epithelial None Seen HPF (0-3); WBC/HPF Greater than 50 HPF (0-3)
[2019-07-14 05:14] LABS: Bacteria/HPF 1+ HPF (None Seen)
[2019-07-14 05:15] LABS: Urine Culture Reflex Yes Yes
[2019-07-14] MEDS: Levothyroxine Sodium 50 MCG TAB PO SCH (06:19)
[2019-07-14] MEDS: Acetaminophen 325 MG TAB PO PRN (09:01)
[2019-07-14] MEDS: Digoxin 0.125 MG TAB PO SCH (09:01)
[2019-07-14] MEDS: Furosemide 20 MG TAB PO SCH (09:01)
[2019-07-14] MEDS ORDERED: cefTRIAXone Sodium 2 MG in Syringe 0 ML IVPB SCH (09:15)
[2019-07-14] MEDS: cefTRIAXone\\ROCEPHIN 2 GM in Sodium Chloride 0.9% 100 ML IVPB SCH (09:45)
[2019-07-14] MEDS ORDERED: Benzonatate 100 MG CAP PO PRN (14:31)
[2019-07-14] MEDS ORDERED: diphenhydrAMINE 50 MG/ML VIAL IVP PRN (14:35)
--- NOTE | 2019-07-14 15:15 | PDOC.HOSPP ---
- Subjective Subjective: Seen and examined. Clinically worse. Patient with polyuria all night, urine analysis confirmed urinary tract infection. Patient delirious. With patient being agitated in the night he did not sleep. at bedside, all questions answered in detail. - Objective Vital Signs & Weight: Vital Signs (12 hours) Temp Pulse Resp BP Pulse Ox 07/14/19 11:36 98.0 F 82 16 128/58 L 98 07/14/19 07:55 100.2 F H 83 17 136/69 94 L 07/14/19 04:00 97.6 F 68 16 124/58 L 97 Weight Weight 156 lb I&O: 07/13/19 07/14/19 07/15/19 06:59 06:59 06:59 Intake Total 730 800 Output Total 650 1175 Balance 80 -375 Result Diagrams: 07/13/19 07:25 07/13/19 07:25 Hospitalist ROS - Review of Systems ROS unobtainable: due to mental status - Medication Medications: Active Medications Generic Name Dose Route Start Last Admin Trade Name Freq PRN Reason Stop Dose Admin Acetaminophen 650 mg 07/09/19 21:28 07/14/19 09:01 Tylenol PO 650 mg Q4H PRN Administration Headache/Fever/Mild Pain (1-3) Bisacodyl 5 mg 07/11/19 08:26 07/12/19 09:54 Dulcolax PO 5 mg DAILYPRN PRN Administration Constipation Digoxin 0.125 mg 07/13/19 09:00 07/14/19 09:01 Lanoxin PO 0.125 mg DAILY GENNY Administration Famotidine 20 mg 07/10/19 21:00 07/13/19 22:01 Pepcid PO 20 mg QPM GENNY Administration Fentanyl 50 mcg 07/10/19 04:26 07/12/19 23:06 Sublimaze SLOW IVP 50 mcg Q2H PRN Administration Severe Pain (7-10) Furosemide 20 mg 07/14/19 09:00 07/14/19 09:01 Lasix PO 20 mg DAILY GENNY Administration Ceftriaxone Sodium 2 gm/ 100 mls @ 200 mls/hr 07/14/19 10:00 07/14/19 09:45 Sodium Chloride IVPB 07/21/19 12:00 100 mls Q24HR GENNY Administration Levothyroxine Sodium 50 mcg 07/10/19 06:00 07/14/19 06:19 Synthroid PO 50 mcg 0600 GENNY Administration Metoprolol Succinate 100 mg 07/13/19 21:00 07/14/19 09:01 Toprol Xl PO 100 mg BID GENNY Administration Ondansetron HCl 4 mg 07/10/19 09:21 07/13/19 18:26 Zofran IVP 4 mg Q6H PRN Administration Nausea/Vomiting Promethazine HCl 6.25 mg 07/13/19 19:49 07/13/19 22:02 Phenergan IM/IV 6.25 mg Q6H PRN Administration Nausea/Vomiting Sacubitril/Valsartan 1 tab 07/13/19 21:00 07/14/19 09:01 Entresto 24 Mg-26 Mg Tablet PO 1 tab BID GENNY Administration - Exam General Appearance: NAD Eye: PERRL, anicteric sclera ENT: normocephalic atraumatic, moist mucosa Neck: supple, symmetric Heart: RRR, no murmur, no gallops Respiratory: CTAB, no wheezes, no rales, no ronchi Gastrointestinal: soft, non-tender, non-distended, no guarding, no rigidity Extremities: no edema Skin: no lesions, no rashes Neurological: cranial nerve grossly intact, no focal deficits Musculoskeletal: generalized weakness Psychiatric: oriented to person, somnolent Hosp A/P (1) Anemia Code(s): D64.9 - ANEMIA, UNSPECIFIED Status: Acute (2) Cardiomyopathy Code(s): I42.9 - CARDIOMYOPATHY, UNSPECIFIED Status: Acute (3) Hyponatremia Code(s): E87.1 - HYPO-OSMOLALITY AND HYPONATREMIA Status: Acute (4) Retroperitoneal hematoma Code(s): K66.1 - HEMOPERITONEUM Status: Acute (5) 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 Code(s): I50.41 - ACUTE COMBINED SYSTOLIC AND DIASTOLIC (CONGESTIVE) HRT FAIL Status: Acute (6) Atrial fibrillation with RVR Code(s): I48.91 - UNSPECIFIED ATRIAL FIBRILLATION Status: Acute (7) Moderate tricuspid regurgitation Code(s): I07.1 - RHEUMATIC TRICUSPID INSUFFICIENCY Status: Acute (8) Severe mitral regurgitation Code(s): I34.0 - NONRHEUMATIC MITRAL (VALVE) INSUFFICIENCY Status: Acute (9) CAD (coronary artery disease) Code(s): I25.10 - ATHSCL HEART DISEASE OF [place] CORONARY ARTERY W/O ANG PCTRS Status: Chronic (10) CKD (chronic kidney disease) stage 3, GFR 30-59 ml/min Code(s): N18.3 - CHRONIC KIDNEY DISEASE, STAGE 3 (MODERATE) Status: Chronic (11) Chronic anticoagulation Code(s): 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 Status: Chronic (12) Hypothyroidism Code(s): E03.9 - HYPOTHYROIDISM, UNSPECIFIED Status: Chronic (13) UTI (urinary tract infection) Status: Acute (14) Delirium Code(s): R41.0 - DISORIENTATION, UNSPECIFIED Status: Acute - Plan Plan: medical unit with telemetry Start IV ABX for UTI Frequent orientation No Xanax QHS, known to worsen encephalopathy Melatonin/ Benadryl QHS for insomnia CM consult for discharge planning to rehabilitation unit cardiology consultation, recommendations appreciated Started Entresto for CHF Oral lasix Heart rate is now controlled on a combination of digoxin, Cardizem, and metoprolol per cardiology. Patient not willing to wear life vest any longer Hgb stable after blood transfusion continue other medications as able replace electrolytes as needed physical therapy/occupational therapy
[2019-07-14] MEDS ORDERED: Phenazopyridine HCl 97.5 MG TABLET ONE (21:46)
[2019-07-14] MEDS: Melatonin 3 MG TAB PO SCH (21:49)
[2019-07-14] MEDS: Famotidine 20 MG TAB PO SCH (21:49)
[2019-07-14] MEDS: Phenazopyridine HCl 97.5 MG TABLET PO PRN (21:49)
[2019-07-15] MEDS: Acetaminophen 325 MG TAB PO PRN (03:15)
[2019-07-15] MEDS: Ondansetron PF 4 MG/2 ML Vial IVP PRN (03:15)
[2019-07-15] MEDS: Phenazopyridine HCl 97.5 MG TABLET PO PRN (05:37)
[2019-07-15] MEDS: Levothyroxine Sodium 50 MCG TAB PO SCH (05:37)
[2019-07-15 06:28] LABS: Platelet Count 190 thou/uL (130-400)
[2019-07-15 06:49] LABS: Anion Gap 13 mmol/L (10-20); BUN (Urea Nitrogen) 13 mg/dL (8.4-25.7); Calc. Creatinine Clearance 56 mL/min (70-130); Calcium 8.7 mg/dL (7.8-10.44); Carbon Dioxide 28 mmol/L (23-31); Chloride 99 mmol/L (98-107); Estimated GFR-MDRD 79; Glucose 102 mg/dL (83-110); Potassium 3.5 mmol/L (3.5-5.1); Sodium 136 mmol/L (136-145)
[2019-07-15] MEDS: Digoxin 0.125 MG TAB PO SCH (09:54)
[2019-07-15] MEDS: Finasteride 5 MG TAB PO SCH (09:55)
[2019-07-15] MEDS: Tamsulosin HCl 0.4 MG CAP PO SCH (09:55)
[2019-07-15] MEDS: cefTRIAXone\\ROCEPHIN 2 GM in Sodium Chloride 0.9% 100 ML IVPB SCH (09:55)
[2019-07-15] MEDS: Furosemide 20 MG TAB PO SCH (09:55)
[2019-07-15] MEDS: Sacubitril 49 MG/Valsartan 51 MG TABLET PO SCH ×2 (09:55→21:11)
--- NOTE | 2019-07-15 12:56 | PDOC.HOSPP ---
- Subjective Subjective: Seen and examined. Clinically improving. Sitting upright in bed. Answering questions appropriately today. Patient still with UTI symptoms, though he is responding to IV antibiotics. Patient with trouble initiating urine, has seen urology in the past and was recommended that he had enlarged prostate and was plan for surgical correction however he has not made it yet. Will start oral medications for BPH. Patient has required straight cath. If he is unable to avoid a Parker catheter may need to be placed and urology consulted. - Objective Vital Signs & Weight: Vital Signs (12 hours) Temp Pulse Resp BP BP Pulse Ox 07/15/19 09:54 70 07/15/19 08:00 97.5 F L 70 18 117/58 L 100 07/15/19 03:24 18 95 07/15/19 03:10 98.3 F 90 20 128/71 100 Weight Weight 156 lb I&O: 07/14/19 07/15/19 07/16/19 06:59 06:59 06:59 Intake Total 800 1518 Output Total 1175 3210 Balance -483 -4881 Result Diagrams: 07/15/19 05:29 07/15/19 05:29 Hospitalist ROS - Review of Systems All other systems reviewed; all pertinent +/- noted in HPI/Subj - Medication Medications: Active Medications Generic Name Dose Route Start Last Admin Trade Name Freq PRN Reason Stop Dose Admin Acetaminophen 650 mg 07/09/19 21:28 07/15/19 03:15 Tylenol PO 650 mg Q4H PRN Administration Headache/Fever/Mild Pain (1-3) Bisacodyl 5 mg 07/11/19 08:26 07/12/19 09:54 Dulcolax PO 5 mg DAILYPRN PRN Administration Constipation Digoxin 0.125 mg 07/13/19 09:00 07/15/19 09:54 Lanoxin PO 0.125 mg DAILY GENNY Administration Famotidine 20 mg 07/10/19 21:00 07/14/19 21:49 Pepcid PO 20 mg QPM GENNY Administration Fentanyl 50 mcg 07/10/19 04:26 07/12/19 23:06 Sublimaze SLOW IVP 50 mcg Q2H PRN Administration Severe Pain (7-10) Finasteride 5 mg 07/15/19 09:00 07/15/19 09:55 Proscar PO 5 mg DAILY GENNY Administration Furosemide 20 mg 07/14/19 09:00 07/15/19 09:55 Lasix PO 20 mg DAILY GENNY Administration Ceftriaxone Sodium 2 gm/ 100 mls @ 200 mls/hr 07/14/19 10:00 07/15/19 09:55 Sodium Chloride IVPB 07/21/19 12:00 100 mls Q24HR GENNY Administration Levothyroxine Sodium 50 mcg 07/10/19 06:00 07/15/19 05:37 Synthroid PO 50 mcg 0600 GENNY Administration Melatonin 3 mg 07/14/19 21:00 07/14/19 21:49 Melatonin PO 3 mg HS GENNY Administration Metoprolol Succinate 100 mg 07/13/19 21:00 07/15/19 09:55 Toprol Xl PO 100 mg BID GENNY Administration Ondansetron HCl 4 mg 07/10/19 09:21 07/15/19 03:15 Zofran IVP 4 mg Q6H PRN Administration Nausea/Vomiting Phenazopyridine HCl 195 mg 07/14/19 21:38 07/15/19 05:37 Azo Standard PO 195 mg Q8H PRN Administration PAIN ON URINATION Promethazine HCl 6.25 mg 07/13/19 19:49 07/13/19 22:02 Phenergan IM/IV 6.25 mg Q6H PRN Administration Nausea/Vomiting Sacubitril/Valsartan 1 tab 07/15/19 09:00 07/15/19 09:55 Entresto 49 Mg-51 Mg Tablet PO 1 tab BID GENNY Administration Tamsulosin HCl 0.4 mg 07/15/19 09:00 07/15/19 09:55 Flomax PO 0.4 mg DAILY GENNY Administration - Exam General Appearance: NAD, awake alert Eye: anicteric sclera ENT: normocephalic atraumatic, moist mucosa Neck: supple, symmetric, no lymphadenopathy Heart: RRR, no murmur, no gallops, no rubs Respiratory: CTAB, no wheezes, no rales, no ronchi Gastrointestinal: soft, non-tender, non-distended, no guarding, no rigidity Extremities: no edema Skin: no lesions, no rashes Neurological: cranial nerve grossly intact, no focal deficits Musculoskeletal: generalized weakness Psychiatric: normal affect, A&O x 3 Hosp A/P (1) Anemia Code(s): D64.9 - ANEMIA, UNSPECIFIED Status: Acute (2) Cardiomyopathy Code(s): I42.9 - CARDIOMYOPATHY, UNSPECIFIED Status: Acute (3) Hyponatremia Code(s): E87.1 - HYPO-OSMOLALITY AND HYPONATREMIA Status: Acute (4) Retroperitoneal hematoma Code(s): K66.1 - HEMOPERITONEUM Status: Acute (5) 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 Code(s): I50.41 - ACUTE COMBINED SYSTOLIC AND DIASTOLIC (CONGESTIVE) HRT FAIL Status: Acute (6) Atrial fibrillation with RVR Code(s): I48.91 - UNSPECIFIED ATRIAL FIBRILLATION Status: Acute (7) Moderate tricuspid regurgitation Code(s): I07.1 - RHEUMATIC TRICUSPID INSUFFICIENCY Status: Acute (8) Severe mitral regurgitation Code(s): I34.0 - NONRHEUMATIC MITRAL (VALVE) INSUFFICIENCY Status: Acute (9) CAD (coronary artery disease) Code(s): I25.10 - ATHSCL HEART DISEASE OF [place] CORONARY ARTERY W/O ANG PCTRS Status: Chronic (10) CKD (chronic kidney disease) stage 3, GFR 30-59 ml/min Code(s): N18.3 - CHRONIC KIDNEY DISEASE, STAGE 3 (MODERATE) Status: Chronic (11) Chronic anticoagulation Code(s): Z79.01 - SNF (CURRENT) USE OF ANTICOAGULANTS Status: Chronic (12) Hypothyroidism Code(s): E03.9 - HYPOTHYROIDISM, UNSPECIFIED Status: Chronic (13) UTI (urinary tract infection) Status: Acute (14) Delirium Code(s): R41.0 - DISORIENTATION, UNSPECIFIED Status: Acute - Plan Plan: medical unit with telemetry ContinueIV ABX for UTI Preliminary culture with e.coli, as expected Start medications for BPH: Flomax, Finasteride Frequent re orientation No Xanax QHS, known to worsen encephalopathy Melatonin/ Benadryl QHS for insomnia CM consult for discharge planning to rehabilitation unit cardiology consultation, recommendations appreciated Started Entresto for CHF Oral lasix Heart rate is now controlled on a combination of digoxin, Cardizem, and metoprolol per cardiology. Patient not willing to wear life vest any longer Hgb stable after blood transfusion continue other medications as able replace electrolytes as needed physical therapy/occupational therapy
--- NOTE | 2019-07-15 13:16 | PQF ---
DATE: 07-15-19 ATTN: DR. HAZEL VARGAS Please exercise your independent, professional judgment in responding to the clarification form. Clinical indicators are provided on the bottom of this form for your review Please check appropriate box(s): [ XX ] Encephalopathy: Type: [ XX ] Acute [ ] Subacute [ ] Chronic Etiology: [ ] Metabolic [ XX ] Toxic [ ] Drug induced: [ ] Other (please specify) [ ] Transient Alteration of Awareness [ ] Other diagnosis [ ] Unable to determine In addition, please specify: Present on Admission (POA): [ ] Yes [ XX ] No [ ] Unable to determine For continuity of documentation, please document condition throughout progress notes and discharge summary. Thank You. CLINICAL INDICATORS - SIGNS / SYMPTOMS / LABS / RESULTS AND LOCATION IN EMR: PN DR. HAZEL VARGAS 07-14-19: PATIENT WITH POLYURIA ALL NIGHT, URINE ANALYSIS CONFIRMED URINARY TRACT INFECTION. PATIENT DELIRIOUS. WITH PATIENT BEING AGITATED IN THE NIGHT HE DID NOT SLEEP. ORIENTED TO PERSON, SOMNOLENT, ACUTE DELIRIUM, NO XANAX QHS, KNOWN TO WORSEN ENCEPHALOPATHY RISK FACTORS / RESULTS AND LOCATION IN EMR: PN DR. HAZEL VARGAS 07-14-19: ACUTE ANEMIA, HYPONATREMIA, RETROPERITONEAL HEMATOMA, ACUTE SYSTOLIC AND DIASTOLIC CHF, UTI TREATMENTS / RESULTS AND LOCATION IN EMR: MAR: 07-14-19: ROCEPHIN IV (This form is maintained as a part of the permanent medical record) 2014 [employer]. All Rights Reserved [email or web address] [email or web address] Office: [phone] KEN
--- NOTE | 2019-07-15 19:11 | ULT ---
Bilateral renal ultrasound CLINICAL INDICATION: Renal obstruction COMPARISON: None FINDINGS: Right kidney: Scattered right renal cysts, measuring up to approximately 2 cm. No solid mass, or hydr onephrosis. Left kidney: 2.2 cm cyst of the lower pole, left kidney. No solid mass, or hydronephrosis. Urinary bladder: Normal IMPRESSION: Bilateral renal cysts.
[2019-07-15] MEDS: Melatonin 3 MG TAB PO SCH (21:10)
[2019-07-15] MEDS: Famotidine 20 MG TAB PO SCH (21:11)
[2019-07-15] MEDS: Fentanyl 100 MCG/2 ML VIAL SLOW IVP PRN (23:54)
[2019-07-16] MEDS: Acetaminophen 325 MG TAB PO PRN (02:42)
[2019-07-16] MEDS: Levothyroxine Sodium 50 MCG TAB PO SCH (06:06)
[2019-07-16] MEDS: Finasteride 5 MG TAB PO SCH (08:34)
[2019-07-16] MEDS: Tamsulosin HCl 0.4 MG CAP PO SCH (08:34)
[2019-07-16] MEDS: Furosemide 20 MG TAB PO SCH (08:34)
[2019-07-16] MEDS: Digoxin 0.125 MG TAB PO SCH (08:34)
[2019-07-16] MEDS: Sacubitril 49 MG/Valsartan 51 MG TABLET PO SCH ×2 (08:34→21:52)
[2019-07-16] MEDS: cefTRIAXone\\ROCEPHIN 2 GM in Sodium Chloride 0.9% 100 ML IVPB SCH (08:46)
[2019-07-16] MEDS: Bisacodyl 5 MG TAB PO PRN (12:17)
--- NOTE | 2019-07-16 14:13 | PDOC.HOSPP ---
- Subjective Subjective: Seen and examined. Seth catheter required. Pending urology consultation. Renal ultrasound does not demonstrate obstruction. Responding to IV antibiotics, urine culture confirmed E. coli which is bagley sensitive. Will transition to oral antibiotics on discharge. Patient alert and oriented back to his baseline at this time. - Objective Vital Signs & Weight: Vital Signs (12 hours) Temp Pulse Resp BP Pulse Ox 07/16/19 11:08 97.5 F L 95 14 111/66 97 07/16/19 08:20 97.8 F 98 16 134/63 93 L 07/16/19 08:00 93 L 07/16/19 04:00 98.0 F 97 16 128/76 93 L Weight Weight 146 lb I&O: 07/15/19 07/16/19 07/17/19 06:59 06:59 06:59 Intake Total 1518 1430 Output Total 3210 1175 Balance -1692 255 Result Diagrams: 07/15/19 05:29 07/15/19 05:29 Radiology Reviewed by me: Yes (Renal US) Hospitalist ROS - Review of Systems All other systems reviewed; all pertinent +/- noted in HPI/Subj - Medication Medications: Active Medications Generic Name Dose Route Start Last Admin Trade Name Freq PRN Reason Stop Dose Admin Acetaminophen 650 mg 07/09/19 21:28 07/16/19 02:42 Tylenol PO 650 mg Q4H PRN Administration Headache/Fever/Mild Pain (1-3) Bisacodyl 5 mg 07/11/19 08:26 07/16/19 12:17 Dulcolax PO 5 mg DAILYPRN PRN Administration Constipation Digoxin 0.125 mg 07/13/19 09:00 07/16/19 08:34 Lanoxin PO 0.125 mg DAILY GENNY Administration Famotidine 20 mg 07/10/19 21:00 07/15/19 21:11 Pepcid PO 20 mg QPM GENNY Administration Fentanyl 50 mcg 07/10/19 04:26 07/15/19 23:54 Sublimaze SLOW IVP 50 mcg Q2H PRN Administration Severe Pain (7-10) Finasteride 5 mg 07/15/19 09:00 07/16/19 08:34 Proscar PO 5 mg DAILY GENNY Administration Furosemide 20 mg 07/14/19 09:00 07/16/19 08:34 Lasix PO 20 mg DAILY GENNY Administration Ceftriaxone Sodium 2 gm/ 100 mls @ 200 mls/hr 07/14/19 10:00 07/16/19 08:46 Sodium Chloride IVPB 07/21/19 12:00 100 mls Q24HR GENNY Administration Levothyroxine Sodium 50 mcg 07/10/19 06:00 07/16/19 06:06 Synthroid PO 50 mcg 0600 GENNY Administration Melatonin 3 mg 07/14/19 21:00 07/15/19 21:10 Melatonin PO 3 mg HS GENNY Administration Metoprolol Succinate 100 mg 07/13/19 21:00 07/16/19 08:34 Toprol Xl PO 100 mg BID GENNY Administration Ondansetron HCl 4 mg 07/10/19 09:21 07/15/19 03:15 Zofran IVP 4 mg Q6H PRN Administration Nausea/Vomiting Phenazopyridine HCl 195 mg 07/14/19 21:38 07/15/19 05:37 Azo Standard PO 195 mg Q8H PRN Administration PAIN ON URINATION Promethazine HCl 6.25 mg 07/13/19 19:49 07/13/19 22:02 Phenergan IM/IV 6.25 mg Q6H PRN Administration Nausea/Vomiting Sacubitril/Valsartan 1 tab 07/15/19 09:00 07/16/19 08:34 Entresto 49 Mg-51 Mg Tablet PO 1 tab BID GENNY Administration Tamsulosin HCl 0.4 mg 07/15/19 09:00 07/16/19 08:34 Flomax PO 0.4 mg DAILY GENNY Administration - Exam General Appearance: NAD, awake alert Eye: anicteric sclera ENT: normocephalic atraumatic, moist mucosa Neck: supple, symmetric, no lymphadenopathy Heart: no murmur, no gallops, no rubs Respiratory: CTAB, no wheezes, no rales, no ronchi Gastrointestinal: soft, non-tender, non-distended, no guarding, no rigidity Gastrointestinal - other findings: : seth with marcus urine without blood Extremities: no edema Skin: no lesions, no rashes Neurological: cranial nerve grossly intact, no focal deficits Musculoskeletal: generalized weakness Psychiatric: normal affect, A&O x 3 Hosp A/P (1) Anemia Code(s): D64.9 - ANEMIA, UNSPECIFIED Status: Acute (2) Cardiomyopathy Code(s): I42.9 - CARDIOMYOPATHY, UNSPECIFIED Status: Acute (3) Hyponatremia Code(s): E87.1 - HYPO-OSMOLALITY AND HYPONATREMIA Status: Acute (4) Retroperitoneal hematoma Code(s): K66.1 - HEMOPERITONEUM Status: Acute (5) 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 Code(s): I50.41 - ACUTE COMBINED SYSTOLIC AND DIASTOLIC (CONGESTIVE) HRT FAIL Status: Acute (6) Atrial fibrillation with RVR Code(s): I48.91 - UNSPECIFIED ATRIAL FIBRILLATION Status: Acute (7) Moderate tricuspid regurgitation Code(s): I07.1 - RHEUMATIC TRICUSPID INSUFFICIENCY Status: Acute (8) Severe mitral regurgitation Code(s): I34.0 - NONRHEUMATIC MITRAL (VALVE) INSUFFICIENCY Status: Acute (9) CAD (coronary artery disease) Code(s): I25.10 - ATHSCL HEART DISEASE OF [place] CORONARY ARTERY W/O ANG PCTRS Status: Chronic (10) CKD (chronic kidney disease) stage 3, GFR 30-59 ml/min Code(s): N18.3 - CHRONIC KIDNEY DISEASE, STAGE 3 (MODERATE) Status: Chronic (11) Chronic anticoagulation Code(s): Z79.01 - [employer]ICIAN (CURRENT) USE OF ANTICOAGULANTS Status: Chronic (12) Hypothyroidism Code(s): E03.9 - HYPOTHYROIDISM, UNSPECIFIED Status: Chronic (13) UTI (urinary tract infection) Status: Acute (14) Delirium Code(s): R41.0 - DISORIENTATION, UNSPECIFIED Status: Acute - Plan Plan: medical unit with telemetry Urology consultation, recommendations appreciated cardiology consultation, recommendations appreciated Seth cath, further plan of care per Urology Continue IV ABX for UTI, transition to oral on D/c Preliminary culture with e.coli, as expected Continue medications for BPH: Flomax, Finasteride Frequent re orientation No Xanax QHS, known to worsen encephalopathy Melatonin/ Benadryl QHS for insomnia CM consult for discharge planning to rehabilitation unit Continue Entresto for CHF Oral lasix Heart rate is now controlled on a combination of digoxin, Cardizem, and metoprolol per cardiology. Patient not willing to wear life vest any longer Hgb stable after blood transfusion continue other medications as able replace electrolytes as needed physical therapy/occupational therapy
[2019-07-16] MEDS: Famotidine 20 MG TAB PO SCH (21:52)
[2019-07-16] MEDS: Melatonin 3 MG TAB PO SCH (21:52)
[2019-07-16] MEDS: HYDROcodone/Acetaminophen 5/325 mg Tablet PO PRN (23:31)
[2019-07-17] MEDS: HYDROcodone/Acetaminophen 5/325 mg Tablet PO PRN (03:12)
[2019-07-17] MEDS: Levothyroxine Sodium 50 MCG TAB PO SCH (05:49)
--- NOTE | 2019-07-17 08:14 | CON ---
DATE OF CONSULTATION: 07/16/2019 CONSULTING SERVICE: Family Medicine consulted Dr. Schofield. REASON FOR CONSULTATION: Urinary retention. HISTORY OF PRESENT ILLNESS: Mr. Vasquez is an 89-year-old white male with history of BPH, who is well known to me. He is currently seeing me for BPH with lower urinary tract symptoms and is currently taking Flomax and finasteride. He had undergone a workup for UroLift procedure which showed significantly diseased bladder with long segment obstruction and a severely obstructive prostate. He wad in the hospital with cardiac issues for which he received a pacemaker. He was in the hospital for approximately 2 weeks at which point, he was discharged home, but unfortunately he came back to the emergency room with complaints of pelvic pain and hip discomfort. At that time, he had a CT demonstrating a markedly enlarged right psoas muscle, not present on previous exam. He also had what was thought to be a possible urinary tract infection. He was rehospitalized and became progressively weaker with inability to walk and significant debilitation. At this point, he began having difficulty with urination and ultimately ended up having a catheter placed with a large amount of urine released. I have currently been consulted for further assistance regarding his urinary retention. Of note, the patient did have a renal ultrasound which did not demonstrate any evidence of hydronephrosis. Urine culture is currently showing pansensitive E coli, which is currently being treated. ALLERGIES: 1. PENICILLIN. 2. SULFA. 3. STATINS. 4. CIPROFLOXACIN. HOME MEDICATIONS: 1. Eliquis. 2. Aspirin. 3. Levothyroxine. 4. Cordarone. 5. Cardizem. 6. Lasix. 7. Metoprolol. 8. Finasteride. 9. Flomax. PAST MEDICAL HISTORY: 1. Nephrolithiasis. 2. Atrial flutter. 3. Hypothyroidism. 4. Chronic anticoagulation use. 5. BPH. PAST SURGICAL HISTORY: 1. CABG. 2. WILLIAN. 3. Cardioversion. 4. Radiofrequency ablation for atrial flutter. FAMILY HISTORY: Significant for hypertension and stroke, but otherwise noncontributory for urologic issues. SOCIAL HISTORY: The patient lives with his at home. He has no history of tobacco, alcohol, or illicit drug use. REVIEW OF SYSTEMS: A 12-point review of system was reviewed and negative other than what was commented on the HPI. Specifically, the patient's weakness and right hip pain, which he currently states are feeling better. PHYSICAL EXAMINATION: VITAL SIGNS: Temperature 98.9, pulse 83, respirations 18, blood pressure 151/74 , saturation 93% on room air. GENERAL: No apparent distress. Communicative, alert, appears stated age, currently in bed. HEENT: Normocephalic, atraumatic. Pupils are symmetric and round. Trachea midline. Moist mucous membranes. CARDIOVASCULAR: Irregular rhythm. Normal S1 and S2. Regular rate. Symmetric pulses. CHEST: No increased work of breathing. Symmetric expansion of lungs, clear anteriorly. ABDOMEN: Soft, nontender, and nondistended. Positive bowel sounds. No organomegaly. No hernias. : Parker catheter in place, draining clear yellow urine. EXTREMITIES: No clubbing, cyanosis. Trace edema bilaterally. MUSCULOSKELETAL: No obvious joint deformities or joint erythema noted. Range of motion was tested in the upper extremities which is normal. Lower extremities, the patient does have mild amount of pain in his right inguinal area. Otherwise, no obvious joint deformities or joint erythema noted. NEUROLOGIC: Cranial nerves 2 through 12 appear grossly intact. No focal or sensory motor deficits identified. SKIN: Warm, dry, poor turgor. No rashes, lesions. PSYCHIATRIC: Alert and oriented x3. Appropriate mood and affect. LABORATORY EVALUATION: The full set of labs are in the [facility] system, which I have reviewed. Of note, the patient's white count is 12.5, hemoglobin of 10 and creatinine of 0.9. Urinalysis demonstrating turbid yellow urine, greater than 50 white cells, 1+ bacteria, 500 leukocyte esterase, nitrite negative. Urine culture is growing E coli as of July 14 demonstrating pansensitive bacteria except to cefoxitin. ASSESSMENT AND PLAN: An 89-year-old white male with longstanding BPH and urinary obstructive symptoms, currently on maximal medical therapy and UroLift canceled secondary to prior admission for cardiac issues. The next available date for UroLift will be in August. During that time, the patient will be at high risks for recurrent urinary retention given his BPH and significant debilitation. The best chance that he will have to be able to void again on his own prior to the UroLift procedure would be for him to undergo physical therapy to gain his strength back. He should remain on his medications including finasteride and Flomax. It would be best if he can minimize his narcotic usage, which will help increase his ability to void and avoid constipation. Once he has demonstrated enough ability to ambulate and gain the strength back, we can attempt a void trial. Attempting a void trial now would have extremely high risk of recurrent urinary retention. At the current time, once the patient is ready for discharge, I would strongly recommend physical therapy either in inpatient or outpatient setting at which point, either the physical therapy doctors may contact me to see the patient is ready for void trial or he should follow up with me in approximately 1 to 2 weeks for a void trial at that time. Parker catheter should be kept inside in the meantime with continuation of medications. Again, I have spoken with the family about rescheduling UroLift procedure, although I will contact Dr. Auguste to ensure that he is still amenable to undergo total intravenous anesthesia for his procedure and stop any type of anticoagulation. Job ID: [id number] [id number]
[2019-07-17] MEDS: Sacubitril 49 MG/Valsartan 51 MG TABLET PO SCH (09:38)
[2019-07-17] MEDS: Digoxin 0.125 MG TAB PO SCH (09:38)
[2019-07-17] MEDS: Finasteride 5 MG TAB PO SCH (09:38)
[2019-07-17] MEDS: Furosemide 20 MG TAB PO SCH (09:39)
[2019-07-17] MEDS: cefTRIAXone\\ROCEPHIN 2 GM in Sodium Chloride 0.9% 100 ML IVPB SCH (09:39)
[2019-07-17] MEDS: Tamsulosin HCl 0.4 MG CAP PO SCH (09:39)
--- NOTE | 2019-07-17 10:39 | PDOC.HOSPP ---
- Subjective Subjective: Seen and examined. Breathing well on room air. HR controlled on current regimen. Parker in place per Urology, will need outpatient follow up. UTI with ecoli, responding to ABX - will transition to oral on D/c. Needs rehab. - Objective Vital Signs & Weight: Vital Signs (12 hours) Temp Pulse Resp BP Pulse Ox 07/17/19 07:39 97.8 F 92 16 155/74 H 95 07/17/19 04:00 97.8 F 80 16 129/64 93 L 07/16/19 23:34 97.1 F L 86 16 141/75 H 92 L Weight Weight 146 lb I&O: 07/16/19 07/17/19 07/18/19 06:59 06:59 06:59 Intake Total 1430 900 Output Total 1175 930 Balance 255 -30 Result Diagrams: 07/15/19 05:29 07/15/19 05:29 Hospitalist ROS - Review of Systems All other systems reviewed; all pertinent +/- noted in HPI/Subj - Medication Medications: Active Medications Generic Name Dose Route Start Last Admin Trade Name Freq PRN Reason Stop Dose Admin Acetaminophen 650 mg 07/09/19 21:28 07/16/19 02:42 Tylenol PO 650 mg Q4H PRN Administration Headache/Fever/Mild Pain (1-3) Hydrocodone Bitart/Acetaminophen 1 tab 07/16/19 23:16 07/17/19 03:12 [place] 5/325 PO 1 tab Q4H PRN Administration Moderate Pain (4-6) Bisacodyl 5 mg 07/11/19 08:26 07/16/19 12:17 Dulcolax PO 5 mg DAILYPRN PRN Administration Constipation Digoxin 0.125 mg 07/13/19 09:00 07/17/19 09:38 Lanoxin PO 0.125 mg DAILY GENNY Administration Famotidine 20 mg 07/10/19 21:00 07/16/19 21:52 Pepcid PO 20 mg QPM GENNY Administration Fentanyl 50 mcg 07/10/19 04:26 07/15/19 23:54 Sublimaze SLOW IVP 50 mcg Q2H PRN Administration Severe Pain (7-10) Finasteride 5 mg 07/15/19 09:00 07/17/19 09:38 Proscar PO 5 mg DAILY GENNY Administration Furosemide 20 mg 07/14/19 09:00 07/17/19 09:39 Lasix PO 20 mg DAILY GENNY Administration Ceftriaxone Sodium 2 gm/ 100 mls @ 200 mls/hr 07/14/19 10:00 07/17/19 09:39 Sodium Chloride IVPB 07/21/19 12:00 100 mls Q24HR GENNY Administration Levothyroxine Sodium 50 mcg 07/10/19 06:00 07/17/19 05:49 Synthroid PO 50 mcg 0600 GENNY Administration Melatonin 3 mg 07/14/19 21:00 07/16/19 21:52 Melatonin PO 3 mg HS GENNY Administration Metoprolol Succinate 100 mg 07/13/19 21:00 07/17/19 09:39 Toprol Xl PO 100 mg BID GENNY Administration Ondansetron HCl 4 mg 07/10/19 09:21 07/15/19 03:15 Zofran IVP 4 mg Q6H PRN Administration Nausea/Vomiting Phenazopyridine HCl 195 mg 07/14/19 21:38 07/15/19 05:37 Azo Standard PO 195 mg Q8H PRN Administration PAIN ON URINATION Promethazine HCl 6.25 mg 07/13/19 19:49 07/13/19 22:02 Phenergan IM/IV 6.25 mg Q6H PRN Administration Nausea/Vomiting Sacubitril/Valsartan 1 tab 07/15/19 09:00 07/17/19 09:38 Entresto 49 Mg-51 Mg Tablet PO 1 tab BID GENNY Administration Tamsulosin HCl 0.4 mg 07/15/19 09:00 07/17/19 09:39 Flomax PO 0.4 mg DAILY GENNY Administration - Exam General Appearance: NAD, awake alert Eye: anicteric sclera ENT: normocephalic atraumatic, moist mucosa Neck: supple, symmetric, no lymphadenopathy Heart: no murmur, no gallops, no rubs Respiratory: CTAB, no wheezes, no rales, no ronchi, normal chest expansion Gastrointestinal: soft, non-tender, non-distended, no rigidity Extremities: no edema Skin: no lesions, no rashes Neurological: cranial nerve grossly intact, no focal deficits Musculoskeletal: generalized weakness Psychiatric: normal affect, A&O x 3 Hosp A/P (1) Anemia Code(s): D64.9 - ANEMIA, UNSPECIFIED Status: Acute (2) Cardiomyopathy Code(s): I42.9 - CARDIOMYOPATHY, UNSPECIFIED Status: Acute (3) Hyponatremia Code(s): E87.1 - HYPO-OSMOLALITY AND HYPONATREMIA Status: Acute (4) Retroperitoneal hematoma Code(s): K66.1 - HEMOPERITONEUM Status: Acute (5) 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 Code(s): I50.41 - ACUTE COMBINED SYSTOLIC AND DIASTOLIC (CONGESTIVE) HRT FAIL Status: Acute (6) Atrial fibrillation with RVR Code(s): I48.91 - UNSPECIFIED ATRIAL FIBRILLATION Status: Acute (7) Moderate tricuspid regurgitation Code(s): I07.1 - RHEUMATIC TRICUSPID INSUFFICIENCY Status: Acute (8) Severe mitral regurgitation Code(s): I34.0 - NONRHEUMATIC MITRAL (VALVE) INSUFFICIENCY Status: Acute (9) CAD (coronary artery disease) Code(s): I25.10 - ATHSCL HEART DISEASE OF [place] CORONARY ARTERY W/O ANG PCTRS Status: Chronic (10) CKD (chronic kidney disease) stage 3, GFR 30-59 ml/min Code(s): N18.3 - CHRONIC KIDNEY DISEASE, STAGE 3 (MODERATE) Status: Chronic (11) Chronic anticoagulation Code(s): Z79.01 - CARE HOME (CURRENT) USE OF ANTICOAGULANTS Status: Chronic (12) Hypothyroidism Code(s): E03.9 - HYPOTHYROIDISM, UNSPECIFIED Status: Chronic (13) UTI (urinary tract infection) Status: Acute (14) Delirium Code(s): R41.0 - DISORIENTATION, UNSPECIFIED Status: Acute - Plan Plan: medical unit with telemetry - medically stable for rehab at this time Urology consultation, recommendations appreciated cardiology consultation, recommendations appreciated Parker cath, further plan of care per Urology as outpatient Continue IV ABX for UTI, transition to oral on D/c Preliminary culture with e.coli, as expected Continue medications for BPH: Flomax, Finasteride Frequent re orientation No Xanax QHS, known to worsen encephalopathy Melatonin/ Benadryl QHS for insomnia CM consult for discharge planning to rehabilitation unit Continue Entresto for CHF Oral lasix Heart rate is now controlled on a combination of digoxin, Cardizem, and metoprolol per cardiology. Patient not willing to wear life vest any longer Hgb stable after blood transfusion continue other medications as able replace electrolytes as needed physical therapy/occupational therapy
[2019-07-17 12:25] VITALS: BP 138/71; TEMP 98
--- NOTE | 2019-07-17 14:29 | PRG ---
DATE OF SERVICE: 07/17/2019 SUBJECTIVE: Mr. Vasquez is doing well. His heart rate appears to be much better controlled. OBJECTIVE: GENERAL: Patient is a pleasant male, who is in no acute distress. The patient appears their stated age. VITAL SIGNS: Blood pressure 130/71, pulse 96, and temperature 98. NEUROLOGIC: The patient is alert and oriented x3 with no focal neurologic deficits. HEENT: Sclerae without icterus. Mouth has moist mucous membranes with normal pallor. NECK: No JVD. Carotid upstroke brisk. No bruits bilaterally. LUNGS: Clear to auscultation with unlabored respirations. BACK: No scoliosis or kyphosis. CARDIAC: Irregularly irregular. ABDOMEN: Soft, nontender, nondistended. No peritoneal signs present. No hepatosplenomegaly. No abnormal striae. EXTREMITIES: 2+ femoral and 2+ dorsalis pedis pulses. No cyanosis, clubbing, or edema. SKIN: No gross abnormalities. PERTINENT LABORATORY DATA: Hemoglobin 10, creatinine 0.9. IMPRESSION: 1. Atrial fibrillation. 2. Psoas muscle hematoma. 3. Coronary artery disease. 4. Ischemic cardiomyopathy. RECOMMENDATIONS: 1. I will continue current medical therapy on digoxin in addition to beta-suzanna therapy. 2. The patient is not interested in proceeding with LifeVest. He states that he has been very uncomfortable for him and understands the risk of sudden cardiac . 3. Hold anticoagulation therapy for 3 to 4 weeks. 4. Plan to follow up with me as an outpatient and we can readdress anticoagulation therapy. He understands the risk of stroke. Job ID: [id number]
--- NOTE | 2019-07-17 16:22 | DIS ---
DATE OF ADMISSION: 07/09/2019 DATE OF DISCHARGE: 07/17/2019 REASON FOR HOSPITALIZATION: Hip pain on the right. SIGNIFICANT FINDINGS: The patient was found to have iliopsoas bleed that was self-contained on the right and this is the cause of his hip pain. The patient with symptomatic anemia and atrial fibrillation in addition to acute on chronic congestive heart failure with a reduced ejection fraction of 30%. The patient also was found to have urinary tract obstruction and obstructive uropathy, requiring Parker catheter. PROCEDURES PERFORMED AND TREATMENTS RENDERED: The patient had maximum medical therapy from all specialists including Cardiology and Urology-please see full consultation notes and progress notes for details. The patient had IV antibiotic therapy with resolution of UTI symptoms. The patient required Parker catheter for obstructive uropathy. CONDITION ON DISCHARGE: Stable. SPECIFIC INSTRUCTIONS FOR THE PATIENT/FAMILY: 1. The patient is recommended to complete a full course of oral antibiotics for resolution of urinary tract infection. 2. The patient is recommended to follow up with Urology in the outpatient clinic in the next 2 to 4 weeks for further plan concerning Parker catheter and possible instrumentation to remove the Parker catheter. 3. The patient is recommended to follow up with Cardiology in the next 1 to 2 weeks for continuation of heart failure management. 4. The patient is recommended to follow up with internal medicine physician in the outpatient setting in the next 1 to 2 days. 5. The patient is recommended to continue all other medications as directed, to be re-evaluated by admitting physician at rehabilitation facility. 6. The patient is recommended to complete a full course of inpatient rehab to regain his strength and independence. DISCHARGE MEDICATIONS: Please see full discharge medication list for details. 1. Levothyroxine 50 mcg one tablet p.o. daily. 2. Flomax 0.4 mg one tablet p.o. daily. 3. Entresto 49/51 tab p.o. b.i.d. 4. Metoprolol XL 100 mg one tablet p.o. b.i.d. 5. Melatonin 3 mg one tablet p.o. at bedtime. 6. Lasix 20 mg one tablet p.o. daily. 7. Finasteride 5 mg one tablet p.o. daily. 8. Famotidine 20 mg one tablet p.o. q.p.m. 9. Cefpodoxime 200 mg one tablet p.o. q.12 hours for the next 5 days, #10 tablets. 10. Dulcolax 5 mg p.o. daily p.r.n. constipation. 11. Tessalon Perles 100 mg one tablet p.o. q.4 hours p.r.n. cough. 12. Tylenol regular strength 650 mg one tablet p.o. q.4 hours p.r.n. pain or fever. HOSPITAL COURSE: Mr. Vasquez is a very pleasant 89-year-old gentleman, who presented to [facility] on 07/10/2019 with right hip pain. He had a CT scan of the abdomen and lower extremity-please see full report for details: The patient was found to have a markedly enlarged right psoas muscle that was not previously identified. With the patient being on Eliquis, this was a self-contained large psoas muscle hematoma. The patient was stopped on Eliquis when he had serial lab draws to monitor for symptomatic anemia. The patient did develop anemia and he was transfused packed red blood cells x1 unit, which resulted in stabilization of his hemoglobin at a level of 10. The patient was also found to have developed atrial fibrillation and this was believed to be worsened by his anemia and atrial fibrillation medications were adjusted appropriately by Cardiology-please see full Cardiology consultation and progress notes for details. With the patient's ejection fraction of 30%, he had acute on chronic congestive heart failure and he was started on Entresto therapy in addition to Lasix. With maximum medical therapy, his atrial fibrillation and heart failure were controlled. Unfortunately, the patient developed obstructive uropathy. He required a Parker catheter to be placed. The patient was seen and evaluated by Urology, who recommended outpatient followup in the next several weeks and he may require surgical correction. The patient recommended safe for discharge by all specialists with close followup in the outpatient setting. The patient was evaluated by Physical Therapy and Occupational Therapy, who recommended him safe for rehab placement. The patient is recommended to take all medications as directed, to be re-evaluated by admitting physician at rehab facility. The patient recommended to complete a full course of oral antibiotics for resolution of UTI. The patient with E coli, which was confirmed to be bagley sensitive to all oral antibiotics and he was placed on cefpodoxime. The patient did respond to ceftriaxone and this is an easy transition for him. The patient recommended to continue with Parker catheter until a further plan can be determined by his outpatient urologist. The patient recommended to continue all other medications as directed. The patient recommended to follow up with Cardiology in the next 1 to 2 weeks. The patient recommended to complete a full course of aggressive inpatient rehabilitation to regain his strength and independence. The patient is recommended to return to acute care hospital immediately if signs or symptoms return, worsen, or any other new symptoms occur. Greater than 40 minutes spent coordinating care and discharge process for this patient. Job ID: [id number]
== END 2019-07-17 14:23 | DRG 393 ==
LOC: SCSER 11:05 → T4-B 16:39 → 2NO 20:28
PROVIDERS: ADMIT Internal Medicine; ATTEND Internal Medicine
PROC: 30233N1 Transfusion of Nonautologous Red Blood Cells into Peripheral Vein, Percutaneous Approach (ICD-10-PCS; 2019-07-09)
PROC: 3E02340 Introduction of Influenza Vaccine into Muscle, Percutaneous Approach (ICD-10-PCS; principal; 2019-07-10)
PROC: 0T9B70Z Drainage of Bladder with Drainage Device, Via Natural or Artificial Opening (ICD-10-PCS; 2019-07-17)
DX: K66.1 Hemoperitoneum (principal); G92 Toxic encephalopathy; I50.43 Acute on chronic combined systolic (congestive) and diastolic (congestive) heart failure; I48.19 Other persistent atrial fibrillation; I13.0 Hypertensive heart and chronic kidney disease with heart failure and stage 1 through stage 4 chronic kidney disease, or unspecified chronic kidney disease; E87.1 Hypo-osmolality and hyponatremia; Z16.24 Resistance to multiple antibiotics; N39.0 Urinary tract infection, site not specified; N13.8 Other obstructive and reflux uropathy; Z23 Encounter for immunization; T45.515A Adverse effect of anticoagulants, initial encounter; N18.3 Chronic kidney disease, stage 3 (moderate); E03.9 Hypothyroidism, unspecified; I08.1 Rheumatic disorders of both mitral and tricuspid valves; I25.10 Atherosclerotic heart disease of native coronary artery without angina pectoris; D63.1 Anemia in chronic kidney disease; G47.00 Insomnia, unspecified; I25.5 Ischemic cardiomyopathy; K59.00 Constipation, unspecified; B96.20 Unspecified Escherichia coli [E. coli] as the cause of diseases classified elsewhere; Z88.8 Allergy status to other drugs, medicaments and biological substances; Z95.1 Presence of aortocoronary bypass graft; Z79.01 Long term (current) use of anticoagulants; Z88.2 Allergy status to sulfonamides; Z79.82 Long term (current) use of aspirin; Z79.899 Other long term (current) drug therapy; E78.5 Hyperlipidemia, unspecified; E78.00 Pure hypercholesterolemia, unspecified; Z88.0 Allergy status to penicillin; N40.1 Benign prostatic hyperplasia with lower urinary tract symptoms
CPT/HCPCS: 36415; 36430; 71046; 74176; 76770; 80048; 80053; 81001; 81003; 83605; 83690; 85014; 85018; 85025; 85049; 85610; 86850; 86900; 86901; 87077; 87086; 87186; 90471; 90662; 96361; 96374; 96375; 96376; G0008; J0696; J1200; J1940; J2270; J2405; J2550; J3010; J3490; P9016

== ENCOUNTER 2019-08-11 18:32 | Inpatient (IN) | payer MEDICARE, BC ==
[2019-08-11] MEDS ORDERED: Diltiazem 125 MG/25 ML ONE (18:47)
[2019-08-11] MEDS ORDERED: Aspirin Chewable 81 MG TAB ONE (18:50)
[2019-08-11 19:21] LABS: ALT (SGPT) 8 U/L (8-55); AST (SGOT) 13 U/L (5-34); Albumin 3.2 g/dL (3.4-4.8); Alkaline Phosphatase 75 U/L (40-110); Anion Gap 13 mmol/L (10-20); Anisocytosis SLIGHT = 6-15 cells (100X) (0-5/hpf); BUN (Urea Nitrogen) 14 mg/dL (8.4-25.7); Bilirubin, Total 0.6 mg/dL (0.2-1.2); CK (CPK) 58 U/L (30-200); Calc. Creatinine Clearance 0 mL/min (70-130); Calcium 9.3 mg/dL (7.8-10.44); Carbon Dioxide 26 mmol/L (23-31); Chloride 105 mmol/L (98-107); Eosinophils 7 % (0-10); Estimated GFR-MDRD 62; Globulin 4.7 g/dL (2.4-3.5); Glucose 96 mg/dL (83-110); Hemoglobin 10.7 g/dL (14.0-18.0); Lymphocytes 25 % (21-51); MDiff Complete? YES; Mean Corpuscular HGB CONC 31.1 g/dL (32.0-36.0); Mean Corpuscular Hemoglobin 28.3 pg (27.0-31.0); Mean Corpuscular Volume 90.9 fL (78.0-98.0); Mean Platelet Volume 8.8 fL (7.4-10.4); Monocytes 14 % (0-10); Neutrophil 50 % (42-75); Platelet Count 104 thou/uL (130-400); Platelet Morphology Comment Appears Decreased; Protein, Total 7.9 g/dL (5.8-8.1); RBC Distribution Width 16.6 % (11.5-14.5); Reactive Lymphocytes 4 % (0-10); Red Blood Cell (RBC) Count 3.79 mill/uL (4.70-6.10); Sodium 140 mmol/L (136-145); Target Cells SLIGHT = 2-5 cells (100X) (0-1/hpf); White Blood Cell (WBC) Count 5.3 thou/uL (4.8-10.8)
--- NOTE | 2019-08-11 19:30 | RAD ---
EXAM: CHEST ONE VIEW HISTORY: Chest pain, history of atrial fibrillation. Heart palpitations COMPARISON: 07/13/2019 FINDINGS: Postsurgical changes related to prior CABG are noted. The cardiac silhouette is magnified by projecti on but overall stable in size. There is stable slight blunting of each lateral costophrenic angle which may represent pleural and parenchymal scarring versus persistent tiny bilateral pleural effusio ns. Minimal linear scarring is seen in the region of the lingula. No consolidation is seen. Degenerative changes are again noted in the spine. Vascular calcifications are seen in the thoracic a jhonny. IMPRESSION: Stable chest with persistent blunting of the lateral costophrenic angles which may represent pleural and parenchymal scarring versus tiny bilateral pleural effusions.
[2019-08-11 21:46] VITALS: BMI 21.4
[2019-08-11] MEDS ORDERED: Ondansetron ODT 4 MG TAB PO PRN (22:06)
[2019-08-11] MEDS ORDERED: Furosemide 20 MG TAB PO PRN (22:06)
[2019-08-11] MEDS ORDERED: Ondansetron PF 4 MG/2 ML Vial IVP PRN (22:06)
[2019-08-11] MEDS ORDERED: hydrALAZINE 20 MG/ML VIAL SLOW IVP PRN (22:06)
[2019-08-11] MEDS ORDERED: Digoxin 0.5 MG/2 ML AMP SLOW IVP SCH (22:15)
[2019-08-11 22:31] LABS: Troponin I Less than 0.010 ng/mL (< 0.028)
--- NOTE | 2019-08-11 22:50 | HP ---
PRIMARY CARE PROVIDER: Dr. Renae Moore. PRIMARY FIRE INVESTIGATION MANAGER: Dr. Shalom Auguste. CHIEF COMPLAINT: Palpitations. HISTORY OF PRESENT ILLNESS: This is an 89-year-old male, who presents to [facility] Emergency Department in transfer from [facility] Emergency Room, where the patient initially presented with persistent palpitations in the context of known atrial fibrillation. The patient was treated for atrial fibrillation with medical therapy with recent admission to [facility] 07/10 through 07/17/2019. The patient states he takes metoprolol in addition to Entresto after he was noted with depressed ejection fraction in the 30% range during the last hospitalization. The patient states he has been compliant with his chronic medication regimen and has not missed any doses. The patient states he had no specific increased activity level, stressful situations, or dehydration. The patient states he took his pulse at home and noted it in the 130 range, becoming concerned when it did not slow down even with rest. The patient denied any specific chest pain or shortness of breath or increased lower extremity swelling. The patient's recent hospitalization in July 2019 also discovered a right iliopsoas hematoma as the patient was taking chronic Eliquis. The patient was discontinued on the anticoagulation and received 1 unit of packed red blood cells. The patient was also diagnosed with obstructive uropathy and urinary tract infection and treated with a Parker catheter insertion and oral antibiotic therapy after discharge. The patient states he also completed a short inpatient rehabilitation stay and returned home within the last 10 days. In the emergency room, the patient was noted with atrial fibrillation with rapid ventricular response in the 120s to 130s, receiving aspirin 324 mg in addition to Cardizem bolus at 10 mg followed by an infusion at 5 mg/hour. PAST MEDICAL HISTORY: 1. Cardiomyopathy with ejection fraction of 30% to 35%. 2. Atrial fibrillation/atrial flutter, status post cardiac ablation. 3. Chronic anticoagulation, discontinued in July 2019 after iliopsoas hematoma. 4. Hyperlipidemia. 5. Hypothyroidism. 6. Hypertension. 7. Coronary artery disease. 8. History of nephrolithiasis. PAST SURGICAL HISTORY: 1. Status post coronary artery bypass grafting. 2. Status post transesophageal echocardiogram with cardioversion in 2017 and 2018. 3. Status post radiofrequency ablation for atrial flutter. CURRENT MEDICATIONS: 1. Lasix 20 mg p.o. daily. 2. Levothyroxine 75 mcg p.o. daily. 3. Pepcid 20 mg p.o. at bedtime. 4. Proscar 5 mg p.o. daily. 5. Melatonin 3 mg p.o. at bedtime. 6. Toprol-XL 100 mg p.o. b.i.d. 7. Entresto 49/51 mg 1 tablet p.o. b.i.d. 8. Flomax 0.4 mg p.o. daily. ALLERGIES: CIPROFLOXACIN, PENICILLIN, STATIN AGENTS. FAMILY HISTORY: Positive for hypertension and stroke in his father. SOCIAL HISTORY: The patient is . Resides in [facility]. No alcohol, tobacco, or illicit drug use. REVIEW OF SYSTEMS: CONSTITUTIONAL: Negative for weight loss or gain, ability to conduct usual activities. SKIN: Negative for rash, itching. EYES: Negative for double vision, pain. ENT/MOUTH: Negative for nose bleeding, neck stiffness, pain, tenderness. CARDIOVASCULAR: Negative for palpitations, dyspnea on exertion, orthopnea. RESPIRATORY: Negative for shortness of breath, wheezing, cough, hemoptysis, fever or night sweats. GASTROINTESTINAL: Negative for poor appetite, abdominal pain, heartburn, nausea, vomiting, constipation, or diarrhea. GENITOURINARY: Negative for urgency, frequency, dysuria, nocturia. MUSCULOSKELETAL: Negative for pain, swelling. NEUROLOGIC/PSYCHIATRIC: Negative for anxiety, depression. ALLERGY/IMMUNOLOGIC: Negative for skin rash, bleeding tendency. Otherwise, negative except as stated per HPI. PHYSICAL EXAMINATION: VITAL SIGNS: On admission, blood pressure 131/95, pulse 122, respiratory rate 16, temperature 98.4 degrees Fahrenheit, O2 saturation 98% on room air. GENERAL APPEARANCE: This is an 89-year-old male, alert and oriented x3, pleasant, smiling, in no acute distress. HEENT: Pupils are equal, round, reactive to light and accommodation. Extraocular muscles are intact. No scleral icterus. No conjunctival injection. Nares patent. OP is clear. Teeth in good repair. NECK: Supple. No cervical adenopathy. No thyromegaly. No carotid bruits. No JVD appreciated. Cervical spine with full active and passive range of motion. No meningeal signs noted. CHEST: Lungs are clear to auscultation bilaterally. CARDIOVASCULAR: S1 and S2 with irregular rate and rhythm and tachycardia. ABDOMEN: Rounded, soft, nontender, and nondistended. Bowel sounds are positive in all 4 quadrants. There is no palpable mass. No rebound or guarding appreciated. EXTREMITIES: Warm and dry with fair turgor. No clubbing, cyanosis, or asymmetric edema appreciated. Pulses palpable distally at the dorsalis pedis, posterior tibial, and popliteal arteries bilaterally. Capillary refill less than 2 seconds. NEUROLOGIC: Cranial nerves 2 through 12 are grossly intact. No focal or lateralizing signs appreciated. PERTINENT LABORATORY AND X-RAY FINDINGS: Basic metabolic profile within normal limits. Troponin I negative x1. BNP 919, previously noted 552 on 07/22/2019. CBC showed a white blood cell count of 5.3, hemoglobin 10.7, hematocrit 34.4, platelet count 104 with 50% neutrophils. Portable chest x-ray dated 08/11/2019, showed blunting of the lateral costophrenic angles. No acute process identified. EKG dated 08/11/2019, by my interpretation shows atrial fibrillation with rapid ventricular response, heart rates in the 130s. Normal R-wave progression noted in the precordial leads. Normal axis. ASSESSMENT AND PLAN: 1. Atrial fibrillation with rapid ventricular response, recurrent. The patient will be admitted to the telemetry unit. We will continue Cardizem infusion at 10 mg/hour. Add digoxin 0.25 mg IV x1 now. Hold anticoagulation after recent iliopsoas hematoma. Resume metoprolol-XL 100 mg p.o. b.i.d. Consult Cardiology Service in the a.m. for any further recommendations and medical management. 2. Cardiomyopathy with ejection fraction of 30% to 35%. Continue Entresto 49/51 mg p.o. b.i.d. No evidence of current decompensation. Continue Lasix 20 mg p.o. daily. 3. Chronic normocytic anemia. Stable currently. We will continue serial H and H monitoring. Hold anticoagulation. 4. Thrombocytopenia. Stable. We will continue to monitor serial platelet trend. Suspect thrombocytopenia due to recent iliopsoas hematoma. 5. Hypothyroidism. Continue levothyroxine 75 mcg p.o. daily. 6. Prophylaxis. SCDs while in bed. Pepcid 20 mg p.o. b.i.d. 7. Code status is full. Surrogate medical decision maker is patient's spouse. Job ID: [id number]
[2019-08-11] MEDS: Melatonin 3 MG TAB PO SCH (23:33)
[2019-08-11] MEDS: Acetaminophen 500 MG TAB PO PRN (23:33)
[2019-08-12 01:52] LABS: Troponin I Less than 0.010 ng/mL (< 0.028)
[2019-08-12 06:23] LABS: ALT (SGPT) Less than 7 U/L (8-55); AST (SGOT) 11 U/L (5-34); Albumin 2.9 g/dL (3.4-4.8); Alkaline Phosphatase 68 U/L (40-110); Anion Gap 10 mmol/L (10-20); BUN (Urea Nitrogen) 12 mg/dL (8.4-25.7); Bilirubin, Total 0.7 mg/dL (0.2-1.2); Calc. Creatinine Clearance 42 mL/min (70-130); Calcium 8.7 mg/dL (7.8-10.44); Carbon Dioxide 29 mmol/L (23-31); Chloride 106 mmol/L (98-107); Estimated GFR-MDRD 62; Glucose 78 mg/dL (83-110); Magnesium 2.1 mg/dL (1.6-2.6); Potassium 3.6 mmol/L (3.5-5.1); Protein, Total 6.9 g/dL (5.8-8.1); Sodium 141 mmol/L (136-145)
[2019-08-12 07:06] LABS: Anisocytosis SLIGHT = 6-15 cells (100X) (0-5/hpf); Eosinophils 6 % (0-10); Hemoglobin 9.8 g/dL (14.0-18.0); Lymphocytes 36 % (21-51); MDiff Complete? YES; Mean Corpuscular Hemoglobin 29.2 pg (27.0-31.0); Mean Corpuscular Volume 91.1 fL (78.0-98.0); Monocytes 11 % (0-10); Neutrophil 47 % (42-75); Platelet Count 105 thou/uL (130-400); Platelet Morphology Comment Appears Decreased; RBC Distribution Width 15.9 % (11.5-14.5); Red Blood Cell (RBC) Count 3.34 mill/uL (4.70-6.10); White Blood Cell (WBC) Count 3.8 thou/uL (4.8-10.8)
[2019-08-12] MEDS: Levothyroxine Sodium 50 MCG TAB PO SCH (07:56)
[2019-08-12] MEDS ORDERED: FLU VACC TS2019-20(65YR UP)/PF 180 MCG/0.5 ML SYRINGE IM ONE (09:00)
[2019-08-12] MEDS: Famotidine 20 MG TAB PO SCH (10:06)
[2019-08-12] MEDS: Finasteride 5 MG TAB PO SCH (10:07)
[2019-08-12] MEDS: Polyethylene Glycol 3350 17 GM Packet PO PRN (10:07)
[2019-08-12] MEDS: Tamsulosin HCl 0.4 MG CAP PO SCH (10:07)
[2019-08-12] MEDS: Sacubitril 49 MG/Valsartan 51 MG TABLET PO SCH ×2 (10:07→20:11)
--- NOTE | 2019-08-12 13:03 | PDOC.HOSPP ---
- Subjective Encounter Date: 08/12/19 Encounter Time: 07:00 Subjective: Pt seen for followup re:a fib with RVR. Feels well, no complaints. - Objective Vital Signs & Weight: Vital Signs (12 hours) Temp Pulse Resp BP Pulse Ox 08/12/19 11:09 97.7 F 96 16 127/68 94 L 08/12/19 07:15 97.4 F L 99 17 139/65 92 L 08/12/19 04:00 97.4 F L 69 14 131/59 L 94 L Weight Weight 147 lb 2 oz Result Diagrams: 08/12/19 05:43 08/12/19 05:43 Additional Labs: Labs and MARs reviewed by me EKG Reviewed by me: Yes (Tele: buffy zhu) Hospitalist ROS - Review of Systems Cardiovascular: denies: chest pain, palpitations, orthopnea, paroxysmal noc. dyspnea, edema, light headedness Gastrointestinal: denies: nausea, vomiting, abdominal pain, diarrhea, constipation, melena, hematochezia - Medication Medications: Active Medications Generic Name Dose Route Start Last Admin Trade Name Freq PRN Reason Stop Dose Admin Acetaminophen 1,000 mg 08/11/19 22:06 08/11/19 23:33 Tylenol PO 1,000 mg Q6H PRN Administration Mild Pain (1-3) Famotidine 20 mg 08/12/19 09:00 08/12/19 10:06 Pepcid PO 20 mg 0900 GENNY Administration Finasteride 5 mg 08/12/19 09:00 08/12/19 10:07 Proscar PO 5 mg DAILY GENNY Administration Levothyroxine Sodium 75 mcg 08/12/19 09:00 08/12/19 07:56 Synthroid PO 75 mcg DAILY GENNY Administration Melatonin 3 mg 08/12/19 21:00 08/11/19 23:33 Melatonin PO 3 mg HS GENNY Administration Metoprolol Succinate 100 mg 08/12/19 09:00 08/12/19 10:07 Toprol Xl PO 100 mg BID GENNY Administration Polyethylene Glycol 17 gm 08/12/19 09:53 08/12/19 10:07 Miralax PO 17 gm DAILYPRN PRN Administration Constipation Sacubitril/Valsartan 1 tab 08/12/19 09:00 08/12/19 10:07 Entresto 49 Mg-51 Mg Tablet PO 1 tab BID GENNY Administration Tamsulosin HCl 0.4 mg 08/12/19 09:00 08/12/19 10:07 Flomax PO 0.4 mg DAILY GENNY Administration - Exam General Appearance: NAD Eye: anicteric sclera ENT: moist mucosa Neck: supple Heart: no rubs, irregular Respiratory: CTAB Gastrointestinal: soft, non-tender Neurological: no weakness Psychiatric: normal affect, normal behavior Hosp A/P (1) Atrial fibrillation with RVR Code(s): I48.91 - UNSPECIFIED ATRIAL FIBRILLATION Status: Acute (2) CAD (coronary artery disease) Code(s): I25.10 - ATHSCL HEART DISEASE OF [place] CORONARY ARTERY W/O ANG PCTRS Status: Chronic (3) Cardiomyopathy Code(s): I42.9 - CARDIOMYOPATHY, UNSPECIFIED Status: Chronic (4) Hypothyroidism Code(s): E03.9 - HYPOTHYROIDISM, UNSPECIFIED Status: Chronic - Plan Continue cardizem drip, afib rate-controlled now. Continue Toprol XL. Continue synthroid. CAD stable.
[2019-08-12] MEDS: Acetaminophen 500 MG TAB PO PRN (21:00)
[2019-08-12] MEDS: Melatonin 3 MG TAB PO SCH (21:00)
--- NOTE | 2019-08-13 01:13 | CON ---
DATE OF CONSULTATION: 08/12/2019 HISTORY OF PRESENT ILLNESS: I am seeing Mr. 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 His problems are; 1. Recurrent atrial arrhythmias. a. Remote history of atrial flutter, status post CTI ablation in March 2016. b. Paroxysmal atrial fibrillation prompting WILLIAN-guided cardioversion in July 2018, but later recurrent atrial fibrillation noted in November and at that point rate-controlling strategy was pursued. c. Repeated admissions with atrial fibrillation with rapid rates noted including this admission. 2. History of PVCs, status post left coronary cusp ablation in March 2016. 3. Ischemic cardiomyopathy. a. Prior history of coronary artery disease with four-vessel bypass surgery in 2007. b. Reduced LVEF noted on echo, 07/05/2019 at 30% to 35%, mild MR. 4. History of hypertension and hyperlipidemia. ALLERGIES: CIPRO, PENICILLIN, AND STATINS. MEDICATIONS: At home, included: 1. Levothyroxine. 2. Famotidine. 3. Finasteride. 4. Melatonin. 5. Metoprolol succinate 100 mg twice a day. 6. Entresto 49/51 mg twice a day. 7. Tamsulosin . 8. Furosemide. 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 He is again readmitted with rapid palpitations. He is noted to be in atrial fibrillation with rapid rates. IV diltiazem was initiated. His heart rates are better controlled now. His breathing has improved. Currently able to lay back and breathe easy. Denies chest pains. No fever, chills, or cough. No stroke-like symptoms. No neurological deficits. Rest of 12-point review of systems otherwise unremarkable. PAST MEDICAL HISTORY: Past history as above. I have seen and evaluated this patient recently back in July. Since then, anticoagulation has been stopped with apixaban due to a psoas muscle hematoma, but now he is improving with no residual issues in the psoas muscle area. SOCIAL HISTORY: The patient denies smoking, EtOH, or drug abuse. 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 FAMILY HISTORY: Noncontributory. OBJECTIVE DATA: VITAL SIGNS: Blood pressure is 136/74, heart rate 63, respiratory rate is 18, temperature 97.3 degrees Fahrenheit. GENERAL: Alert and oriented man, in no apparent distress. NECK: Supple. Jugular veins not distended. CHEST: Coarse without crackles. HEART: Sounds are irregularly irregular. S1 and S2 are variable. No murmur or gallop. ABDOMEN: Benign. Bowel sounds positive. EXTREMITIES: Lower extremities without edema, clubbing, or cyanosis. Pulses are adequate. NEUROLOGIC: The patient is nonfocal. MUSCULOSKELETAL: Without joint swelling or deformity. SKIN: Without rash. DATABASE: EKG is reviewed. Initial EKG reveals atrial fibrillation, rate of 131 beats per minute. Subsequent EKGs reveals improving rate control. LABORATORY DATA: White cell count is 3.8, hemoglobin 9.8, platelet count is 105. Sodium 141, potassium 3.6, BUN is 12, and creatinine is 1.1. ASSESSMENT AND PLAN: Mr. 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 Although in the past, we did entertain possible atrial fibrillation ablation and cardioversion with anti arrhythmic agents as well. He declined antiarrhythmic agents and cardioversions , but rate control is increasingly difficult in view of his recurrent admissions. Also, currently he is not anticoagulated, hence the recent psoas muscle hematoma. We again discussed the treatment options. At this point, I am going to shy away from recommending denominational of sinus rhythm, hence lack of anticoagulation. Alternatively, rate-controlling measures could be considered like AV conor ablation with HIS or Bi-V pacing. If LVEF is reduced, he may benefit for prophylactic ICD implant along with this procedure. Atrial fibrillation with elevated CHADS-VASc score, likely would benefit resuming previous dose of apixaban in view of his age and his weight being borderline. We will discuss with Dr. Auguste. Job ID: [id number] MTDD
[2019-08-13] MEDS: Levothyroxine Sodium 50 MCG TAB PO SCH (10:05)
[2019-08-13] MEDS: Famotidine 20 MG TAB PO SCH (10:06)
[2019-08-13] MEDS: Tamsulosin HCl 0.4 MG CAP PO SCH (10:07)
[2019-08-13] MEDS: Sacubitril 49 MG/Valsartan 51 MG TABLET PO SCH ×2 (10:07→21:08)
[2019-08-13] MEDS: Finasteride 5 MG TAB PO SCH (10:08)
--- NOTE | 2019-08-13 11:35 | PQF ---
AMA WINCHESTER,CHIKA HOLM [id number] CLINICAL DOCUMENTATION IMPROVEMENT CLARIFICATION FORM: ICD-10 Updated PLEASE DO AN ADDENDUM TO THE PROGRESS NOTE WITH ANY DOCUMENTATION UPDATES OR ADDITIONS AND CARRY THROUGH TO DC SUMMARY. THANK YOU. DATE: 08/13/19 ATTN: Dr. Welsh Please exercise your independent, professional judgment in responding to the clarification form. Clinical indicators are provided on the bottom of this form for your review I DID NOT SEE THIS PATIENT Please check appropriate box(s): HEART FAILURE: A. ACUITY [ ] Chronic B. TYPE [ ] Systolic / HFrEF [ ] Hypertensive Heart Disease [ ] Other diagnosis [ ] Unable to determine In addition, please specify: Present on Admission (POA): [ ] Yes [ ] No [ ] Unable to determine For continuity of documentation, please document condition throughout progress notes and discharge summary. Thank You. CLINICAL INDICATORS - SIGNS / SYMPTOMS / LABS / RESULTS AND LOCATION IN EMR H&P(Jesús): "Depression ejection fraction in the 30% range during the last hospitalization" Elevated BNP--> 08/11 labs: BNP 919 Arrhythmia-> "Afib RVR" 08/11(Jesús) RISKS FACTORS / RESULTS AND LOCATION IN EMR History of "CAD/cardiomyopathy/HTN" H&P(Jesús) TREATMENTS / RESULTS AND LOCATION IN EMR Administration of BB, HF meds--> Metoprolol 100mg po BID, Entreso 1 tab po BID 08/12/19 per orders Cardiac monitoring / telemetry 08/11 orders PO Diuretics--> 08/11 lasix 20mg po daily PRN per orders Cardiology Consult 08/12 orders (This form is maintained as a part of the permanent medical record) 2014 [employer]. All Rights Reserved eDstini Thomas, RN, BSN, CCDS [email or web address]
[2019-08-13] MEDS: Diltiazem 125 MG in Sodium Chloride 0.9% 100 ML IVPB SCH (12:36)
--- NOTE | 2019-08-13 13:48 | PRG ---
DATE OF SERVICE: 08/13/2019 SUBJECTIVE: Pedro is doing well. No current complaints. His rate appears to be controlled on IV Cardizem. OBJECTIVE: VITAL SIGNS: Blood pressure 150/70, pulse 66, temperature 97.6. LUNGS: Clear to auscultation. HEART: Irregularly regular. ABDOMEN: Soft, nontender, nondistended. EXTREMITIES: No edema. PERTINENT LABORATORY DATA: Hemoglobin 9.8. BNP 918. IMPRESSION: 1. Atrial fibrillation with rapid ventricular response. 2. Ischemic cardiomyopathy. 3. Coronary artery disease. 4. Status post bypass surgery. RECOMMENDATIONS: Once again, I spent quite a bit of time with Dr. Vasquez and his family. We again discussed several options. It appears he would like to proceed with AV conor ablation and ICD with biventricular pacing. It certainly seems reasonable. He has failed amiodarone therapy in the past. He has failed rate control in the past. We would also reinstitute Eliquis at low dose at 2.5 mg p.o. b.i.d., given recent iliopsoas hematoma. Otherwise, from my standpoint, I have no further recommendations. Plan is to proceed with AV conor ablation and ICD tomorrow. Job ID: [id number]
--- NOTE | 2019-08-13 14:55 | PDOC.HOSPP ---
- Subjective Encounter Date: 08/13/19 Encounter Time: 07:40 Subjective: Pt seen for followup re; a. fib. Feels well, no complaints. - Objective Vital Signs & Weight: Vital Signs (12 hours) Temp Pulse Resp BP Pulse Ox 08/13/19 11:35 97.6 F 66 14 151/78 H 93 L 08/13/19 08:00 97 08/13/19 07:53 98.5 F 106 H 16 132/73 96 08/13/19 04:00 97.4 F L 111 H 17 108/62 94 L Weight Weight 147 lb 2 oz I&O: 08/12/19 08/13/19 08/14/19 06:59 06:59 06:59 Intake Total 1200 Output Total 2024 Balance -825 Result Diagrams: 08/12/19 05:43 08/12/19 05:43 Additional Labs: Labs and MARs reviewed by me EKG Reviewed by me: Yes (Tele: NSR) Hospitalist ROS - Review of Systems Cardiovascular: denies: chest pain, palpitations, orthopnea, paroxysmal noc. dyspnea, edema, light headedness Gastrointestinal: denies: nausea, vomiting, abdominal pain, diarrhea, constipation, melena, hematochezia - Medication Medications: Active Medications Generic Name Dose Route Start Last Admin Trade Name Freq PRN Reason Stop Dose Admin Acetaminophen 1,000 mg 08/11/19 22:06 08/12/19 21:00 Tylenol PO 1,000 mg Q6H PRN Administration Mild Pain (1-3) Famotidine 20 mg 08/12/19 09:00 08/13/19 10:06 Pepcid PO 20 mg 0900 GENNY Administration Finasteride 5 mg 08/12/19 09:00 08/13/19 10:08 Proscar PO 5 mg DAILY GENNY Administration Diltiazem HCl 125 mg/ Sodium 125 mls @ 10 mls/hr 08/11/19 22:15 08/13/19 12: 36 Chloride IVPB 125 mls INF GENNY Administration Protocol 10 MG/HR Melatonin 3 mg 08/12/19 21:00 08/12/19 21:00 Melatonin PO 3 mg HS GENNY Administration Metoprolol Succinate 100 mg 08/12/19 09:00 08/13/19 10:07 Toprol Xl PO 100 mg BID GENNY Administration Polyethylene Glycol 17 gm 08/12/19 09:53 08/12/19 10:07 Miralax PO 17 gm DAILYPRN PRN Administration Constipation Sacubitril/Valsartan 1 tab 08/12/19 09:00 08/13/19 10:07 Entresto 49 Mg-51 Mg Tablet PO 1 tab BID GENNY Administration Sodium Chloride 10 ml 08/13/19 09:00 08/13/19 10:09 Flush - Normal Saline IVF Not Given Q12HR GENNY Tamsulosin HCl 0.4 mg 08/12/19 09:00 08/13/19 10:07 Flomax PO 0.4 mg DAILY GENNY Administration - Exam General Appearance: NAD Eye: anicteric sclera ENT: moist mucosa Neck: supple Heart: irregular Respiratory: CTAB Gastrointestinal: soft, non-tender Extremities: no clubbing Skin: no rashes Psychiatric: normal affect, normal behavior Hosp A/P (1) Atrial fibrillation with RVR Code(s): I48.91 - UNSPECIFIED ATRIAL FIBRILLATION Status: Acute (2) CAD (coronary artery disease) Code(s): I25.10 - ATHSCL HEART DISEASE OF [place] CORONARY ARTERY W/O ANG PCTRS Status: Chronic (3) Cardiomyopathy Code(s): I42.9 - CARDIOMYOPATHY, UNSPECIFIED Status: Chronic (4) Hypothyroidism Code(s): E03.9 - HYPOTHYROIDISM, UNSPECIFIED Status: Chronic - Plan out of bed/ambulate afib rate-controlled with cardizem drip. On Toprol XL. Continue synthroid. CAD stable. For PPM tomorrow.
--- NOTE | 2019-08-13 17:06 | PDOC.CPN ---
- Subjective Date: 08/13/19 Time: 08:00 Interval history: EP PROGRESS NOTE: 08/13/19 Follow up for atrial fibrillation with difficult to control rates. Prior CV. Declined AAD therapy. No OAC with psoas muscle hematoma - Review of Systems General: denies: fever/chills, weight/appetite/sleep changes, night sweats, fatigue Respiratory: denies: cough, congestion, shortness of breath, exercise intolerance Cardiovascular: denies: chest pain, palpitation, edema, paroxysmal nocturnal dyspnea, orthopnea Gastrointestinal: denies: nausea, vomiting, diarrhea, constipation, abd pain, GI bleeding Musculoskeletal: denies: pain, tenderness, stiffness, swelling, arthritis/ arthralgias - Objective Allergies/Adverse Reactions: Allergies Allergy/AdvReac Type Severity Reaction Status Date / Time ciprofloxacin [From Cipro] Allergy Verified 08/11/19 21:48 Penicillins Allergy Verified 08/11/19 21:48 [id number] Reductase Allergy Verified 08/11/19 21:48 Inhibitor Sulfa (Sulfonamide Allergy Verified 08/11/19 21:48 Antibiotics) Visit Medications: Current Medications Acetaminophen (Tylenol) 1,000 mg PO Q6H PRN PRN Reason: Mild Pain (1-3) Last Admin: 08/12/19 21:00 Dose: 1,000 mg Famotidine (Pepcid) 20 mg PO 0900 [facility] Last Admin: 08/13/19 10:06 Dose: 20 mg Finasteride (Proscar) 5 mg PO DAILY [facility] Last Admin: 08/13/19 10:08 Dose: 5 mg Furosemide (Lasix) 20 mg PO DAILY PRN PRN Reason: swelling Hydralazine HCl (Apresoline) 10 mg SLOW IVP Q4H PRN PRN Reason: SBP > 180 and HR < 70 Diltiazem HCl 125 mg/ Sodium (Chloride) 125 mls @ 10 mls/hr IVPB INF GENNY; Protocol Last Admin: 08/13/19 12:36 Dose: 125 mls Levothyroxine Sodium (Synthroid) 75 mcg PO 0600 [facility] Melatonin (Melatonin) 3 mg PO HS [facility] Last Admin: 08/12/19 21:00 Dose: 3 mg Metoprolol Succinate (Toprol Xl) 100 mg PO BID [facility] Last Admin: 08/13/19 10:07 Dose: 100 mg Ondansetron HCl (Zofran Odt) 4 mg PO Q6H PRN PRN Reason: Nausea/Vomiting Ondansetron HCl (Zofran) 4 mg IVP Q6H PRN PRN Reason: Nausea/Vomiting Polyethylene Glycol (Miralax) 17 gm PO DAILYPRN PRN PRN Reason: Constipation Last Admin: 08/12/19 10:07 Dose: 17 gm Sacubitril/Valsartan (Entresto 49 Mg-51 Mg Tablet) 1 tab PO BID [facility] Last Admin: 08/13/19 10:07 Dose: 1 tab Sodium Chloride (Flush - Normal Saline) 10 ml IVF Q12HR [facility] Last Admin: 08/13/19 10:09 Dose: Not Given Sodium Chloride (Flush - Normal Saline) 10 ml IVF PRN PRN PRN Reason: Saline Flush Tamsulosin HCl (Flomax) 0.4 mg PO DAILY [facility] Last Admin: 08/13/19 10:07 Dose: 0.4 mg Vital Signs & Weight: Vital Signs Temp Pulse Resp BP Pulse Ox 08/13/19 16:00 97.5 F L 63 16 133/63 95 08/13/19 12:00 97.6 F 66 14 151/78 H 93 L 08/13/19 08:00 97 08/13/19 07:53 98.5 F 106 H 16 132/73 96 Weight 147 lb 2 oz - Physical Exam General: alert & oriented x3, appears well, no apparent distress HEENT: mucus membranes moist, normocephaly Neck: supple neck, midline trachea, no JVD/HJR, no masses, no bruit, no lymphadenopathy, no thromegaly Cardiac: no murmur, irregularly regular, tachycardia Lungs: clear to auscultation, normal breath sounds, normal exam Neuro: grossly intact, no lateralizing findings Abdomen: unremarkable, active bowel sounds, non-tender, no masses Extremities: no cyanosis, no clubbing, no edema - Labs Result Diagrams: 08/12/19 05:43 08/12/19 05:43 Troponin/CKMB Troponin I Less than 0.010 ng/mL (< 0.028) 08/12/19 01:19 - Telemetry Supraventricular conduction: atrial fibrillation - Assessment/Plan Assessment/Plan: 1. Prs atrial fibrillation - difficult rate control - prior CV - declines AAD therapy 2. 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 After discussing treatment options we feel the best plan is for implant of a BiV PPM and AV node ablation as rate control has not been possible with mediciations alone and he has repeated hospitalizations for this issue. He is symptomatic with his RVR. He understands R/B/A of PPM implant and ablation and wishes to proceed. Will schedule for tomorrow with Dr. Joseph.
[2019-08-13 18:12] LABS: #Eosinphils 0.2 thou/uL (0.0-0.7); #Lymphocytes 1.1 thou/uL (1.20-3.40); #Monocytes 0.6 thou/uL (0.11-0.59); #Neutrophils 2.2 thou/uL (1.40-6.50); %Basophils 0.3 % (0.0-1.0); %Eosinophils 5.8 % (0.0-10.0); %Monocytes 13.3 % (0.0-10.0); %Neutrophils 53.6 % (42.0-75.0); Hemoglobin 10.6 g/dL (14.0-18.0); Mean Corpuscular HGB CONC 31.7 g/dL (32.0-36.0); Mean Corpuscular Hemoglobin 29.3 pg (27.0-31.0); Mean Corpuscular Volume 92.2 fL (78.0-98.0); Mean Platelet Volume 8.2 fL (7.4-10.4); Platelet Count 124 thou/uL (130-400); RBC Distribution Width 16.1 % (11.5-14.5); Red Blood Cell (RBC) Count 3.62 mill/uL (4.70-6.10); White Blood Cell (WBC) Count 4.1 thou/uL (4.8-10.8)
[2019-08-13 18:34] LABS: Anion Gap 12 mmol/L (10-20); BUN (Urea Nitrogen) 11 mg/dL (8.4-25.7); Calc. Creatinine Clearance 41 mL/min (70-130); Carbon Dioxide 26 mmol/L (23-31); Chloride 106 mmol/L (98-107); Estimated GFR-MDRD 60; Glucose 108 mg/dL (83-110); Potassium 4.1 mmol/L (3.5-5.1); Sodium 140 mmol/L (136-145)
[2019-08-13] MEDS: Melatonin 3 MG TAB PO SCH (21:07)
[2019-08-13] MEDS: Acetaminophen 500 MG TAB PO PRN (21:07)
[2019-08-14] MEDS: Finasteride 5 MG TAB PO SCH (05:57)
[2019-08-14] MEDS: Sacubitril 49 MG/Valsartan 51 MG TABLET PO SCH ×2 (05:57→20:52)
[2019-08-14] MEDS: Levothyroxine Sodium 75 MCG TAB PO SCH (05:57)
[2019-08-14] MEDS: Famotidine 20 MG TAB PO SCH (05:57)
[2019-08-14] MEDS: Tamsulosin HCl 0.4 MG CAP PO SCH (05:57)
--- NOTE | 2019-08-14 09:09 | PRG ---
DATE OF SERVICE: 08/14/2019 SUBJECTIVE: Mr. Vasquez is doing much better. His recent echo did suggest LVEF 45%, which is markedly improved from prior to discharge during his last hospitalization. He has no current symptoms. He continues to be on IV Cardizem at 5 mg/hour. OBJECTIVE: VITAL SIGNS: Blood pressure 140/71, pulse 75, temperature 97.6. LUNGS: Clear to auscultation. HEART: Irregularly irregular. ABDOMEN: Soft, nontender, nondistended. EXTREMITIES: No edema. IMPRESSION: 1. Acute on chronic systolic heart failure. 2. Coronary artery disease. 3. Status post bypass surgery. 4. Atrial fibrillation with difficulty in control. RECOMMENDATIONS: 1. Continue with CHF medications. 2. Continue Entresto b.i.d. 3. Continue Lasix p.o. q.a.m. 4. Discontinue Cardizem after AV conor ablation and pacemaker implantation. 5. Add Eliquis at 2.5 mg one p.o. b.i.d.; ideal dose is 5 mg one p.o. b.i.d., but the patient with recent psoas muscle hematoma and would like to slowly reintroduce anticoagulation therapy for 2 to 3 weeks, then increase to a full dose. 6. Continue metoprolol 100 mg p.o. b.i.d. Job ID: [id number]
[2019-08-14] MEDS ORDERED: PHENYLEPHRINE-NS 100 MCG/ML 10 ML SYRINGE ONE (09:24)
[2019-08-14] MEDS ORDERED: Lidocaine 1% PF 5 ML VIAL ONE (09:24)
[2019-08-14] MEDS ORDERED: PROPOFOL 200 MG/20 ML VIAL ONE (09:24)
[2019-08-14] MEDS ORDERED: Iopamidol 370 76% 50 ML VIAL FS ONE (13:41)
[2019-08-14] MEDS ORDERED: Lidocaine 1% (PF) 30 ML VIAL ONE (14:47)
[2019-08-14] MEDS ORDERED: Heparin (Artline) 500 ML ONE (14:47)
[2019-08-14] MEDS ORDERED: Heparin 10,000 UNITS/1 ML VIAL ONE (14:50)
[2019-08-14] MEDS ORDERED: Clindamycin/D5W 600 mg/50 ml Premix Bag ONE (14:51)
[2019-08-14] MEDS ORDERED: Levofloxacin 500 mg/D5W 100 ml Premix Bag ONE (14:51)
--- NOTE | 2019-08-14 15:17 | PQF ---
AMA WINCHESTER,SARINA Ирина JOEYEDITH [id number] CLINICAL DOCUMENTATION IMPROVEMENT CLARIFICATION FORM: ICD-10 Updated PLEASE DO AN ADDENDUM TO THE PROGRESS NOTE WITH ANY DOCUMENTATION UPDATES OR ADDITIONS AND CARRY THROUGH TO DC SUMMARY. THANK YOU. DATE: 08/14/19 ATTN: Dr. Meyer Please exercise your independent, professional judgment in responding to the clarification form. Clinical indicators are provided on the bottom of this form for your review Please check appropriate box(s): HEART FAILURE: A. ACUITY [ ] Chronic B. TYPE [ ] Systolic / HFrEF [ ] Hypertensive Heart Disease [ ] Other diagnosis [ ] Unable to determine In addition, please specify: Present on Admission (POA): [ ] Yes [ ] No [ ] Unable to determine For continuity of documentation, please document condition throughout progress notes and discharge summary. Thank You. CLINICAL INDICATORS - SIGNS / SYMPTOMS / LABS / RESULTS AND LOCATION IN EMR H&P(Jesús): "Depression ejection fraction in the 30% range during the last hospitalization" Elevated BNP--> 08/11 labs: BNP 919 Arrhythmia-> "Afib RVR" 08/11(Jesús) RISKS FACTORS / RESULTS AND LOCATION IN EMR History of "CAD/cardiomyopathy/HTN" per H&P(Jesús) TREATMENTS / RESULTS AND LOCATION IN EMR Administration of BB, HF meds--> Metoprolol 100mg po BID, Entreso 1 tab po BID 08/12/19 per orders Cardiac monitoring / telemetry 08/11 orders PO Diuretics--> 08/11 lasix 20mg po daily PRN per orders Cardiology Consult 08/12 orders (This form is maintained as a part of the permanent medical record) 2014 [employer]. All Rights Reserved Destini Thomas, RN, BSN, CCDS [email or web address]
[2019-08-14] MEDS ORDERED: Phenylephrine HCL 10 MG/ML VIAL ONE ×2 (15:51→16:38)
--- NOTE | 2019-08-14 17:15 | PDOC.HOSPP ---
- Subjective Encounter Date: 08/14/19 Encounter Time: 08:00 Subjective: Pt seen for followup re: buffy timmons Feels well, no complaints. - Objective Vital Signs & Weight: Vital Signs (12 hours) Temp Pulse Resp BP Pulse Ox 08/14/19 12:00 71 14 120/65 96 08/14/19 08:00 97.6 F 75 16 140/71 100 Weight Weight 147 lb 2 oz I&O: 08/13/19 08/14/19 08/15/19 06:59 06:59 06:59 Intake Total 1200 1075.3 Output Total 5 2300 Balance -825 -1224.7 Result Diagrams: 08/13/19 18:05 08/13/19 18:05 Additional Labs: Labs and MARs reviewed by me EKG Reviewed by me: Yes (Tele; buffy zhu) Hospitalist ROS - Review of Systems Cardiovascular: denies: chest pain, palpitations, orthopnea, paroxysmal noc. dyspnea, edema, light headedness Gastrointestinal: denies: nausea, vomiting, abdominal pain, diarrhea, constipation, melena, hematochezia - Medication Medications: Active Medications Generic Name Dose Route Start Last Admin Trade Name Freq PRN Reason Stop Dose Admin Acetaminophen 1,000 mg 08/11/19 22:06 08/13/19 21:07 Tylenol PO 1,000 mg Q6H PRN Administration Mild Pain (1-3) Famotidine 20 mg 08/12/19 09:00 08/14/19 05:57 Pepcid PO 20 mg 0900 GENNY Administration Finasteride 5 mg 08/12/19 09:00 08/14/19 05:57 Proscar PO 5 mg DAILY GENNY Administration Diltiazem HCl 125 mg/ Sodium 125 mls @ 10 mls/hr 08/11/19 22:15 08/13/19 12: 36 Chloride IVPB 125 mls INF GENNY Administration Protocol 10 MG/HR Levothyroxine Sodium 75 mcg 08/14/19 06:00 08/14/19 05:57 Synthroid PO 75 mcg 0600 GENNY Administration Melatonin 3 mg 08/12/19 21:00 08/13/19 21:07 Melatonin PO 3 mg HS GENNY Administration Metoprolol Succinate 100 mg 08/12/19 09:00 08/14/19 05:57 Toprol Xl PO 100 mg BID GENNY Administration Polyethylene Glycol 17 gm 08/12/19 09:53 08/12/19 10:07 Miralax PO 17 gm DAILYPRN PRN Administration Constipation Sacubitril/Valsartan 1 tab 08/12/19 09:00 08/14/19 05:57 Entresto 49 Mg-51 Mg Tablet PO 1 tab BID GENNY Administration Sodium Chloride 10 ml 08/13/19 09:00 08/14/19 05:58 Flush - Normal Saline IVF Not Given Q12HR GENNY Tamsulosin HCl 0.4 mg 08/12/19 09:00 08/14/19 05:57 Flomax PO 0.4 mg DAILY GENNY Administration - Exam General Appearance: NAD Eye: anicteric sclera ENT: moist mucosa Neck: supple, no thyromegaly Heart: no rubs, irregular Respiratory: CTAB Gastrointestinal: soft, non-tender Musculoskeletal: no muscle wasting Psychiatric: normal affect, normal behavior Hosp A/P (1) Atrial fibrillation with RVR Code(s): I48.91 - UNSPECIFIED ATRIAL FIBRILLATION Status: Acute (2) CAD (coronary artery disease) Code(s): I25.10 - ATHSCL HEART DISEASE OF [place] CORONARY ARTERY W/O ANG PCTRS Status: Chronic (3) Cardiomyopathy Code(s): I42.9 - CARDIOMYOPATHY, UNSPECIFIED Status: Chronic (4) Hypothyroidism Code(s): E03.9 - HYPOTHYROIDISM, UNSPECIFIED Status: Chronic (5) Chronic systolic CHF (congestive heart failure), NYHA class 2 Code(s): I50.22 - CHRONIC SYSTOLIC (CONGESTIVE) HEART FAILURE Status: Chronic Plan: present on admission - Plan plan discussed w/ family, out of bed/ambulate afib rate-controlled with cardizem drip. On Toprol XL. LVEF has improved to 45-50%. CAD stable. Pacemaker today (no AICD).
[2019-08-14] MEDS ORDERED: DOPamine 400 MG/D5W 250 ML 250 ML ONE (17:37)
--- NOTE | 2019-08-14 18:18 | OP ---
DATE OF PROCEDURE: 08/14/2019 PROCEDURE PERFORMED: AV conor ablation and 3D mapping. REASON FOR PROCEDURE: Mr. Vasquez is an 89-year-old man with history of persisting atrial fibrillation, failing multiple antiarrhythmics. Also has suboptimal ventricular rate control, requiring readmissions with standard AV conor blocking agents. He is here for an AV conor ablation as well as His pacing Bi-V pacemaker implant. DESCRIPTION OF PROCEDURE: The patient received propofol by Anesthesia specialist. The right femoral venous area was prepped, draped, and anesthetized using subcutaneous lidocaine. Under ultrasound guidance, the right femoral vein was cannulated. An 8-Thai short sheath was introduced, through which a [employer] SF catheter was advanced to the right atrium. 3D map of the right atrium, His bundle, and CS positions were obtained. Following that, the area was draped in the left subclavian area. We proceeded with His pacing Bi-V pacemaker implantation. Please see separate report. After completion of that procedure, which we also utilized the 3D map was obtained during the EP study and ablation procedure. We proceeded with the AV conor ablation. The His bundle and AV conor area were mapped out. Radiofrequency ablation of the AV conor area at the fast and slow inputs were performed. A total of 5 ablations delivered at 4 minutes and 11 seconds total duration at 40 wolf. AV block was achieved with a junctional external escape at 44 beats per minute were seen. Dopamine was administered at this point during which the junctional escape increased to 70 beats per minute, but remained regular and no evidence of atrial fibrillation conduction is seen. Following that, the pacemaker function again rechecked. Cardiac silhouette did not change and the catheter was removed from the body. Hemostasis obtained with manual pressure. CONCLUSION: 1. Successful AV conor ablation. 2. 3D mapping to map the His bundle and AV conor area was performed during the case to aid the His pacing Bi-V pacemaker implantation. Job ID: [id number]
--- NOTE | 2019-08-14 18:56 | RAD ---
Chest one view HISTORY: Pacemaker placement. COMPARISON: 08/11/2019. FINDINGS: Cardiac silhouette is magnified by projection. Pulmonary vasculature now upper limits of no rmal. Mild atelectasis at the left lung base. Mediastinum is midline with postoperative changes. A new multilead left subclavian cardiac electronic device is in place with leads overlying the right at rium, right ventricle, and coronary sinus. No evidence of pneumothorax. IMPRESSION: New left subclavian cardiac electronic device is in good radiographic position. No eviden ce of pneumothorax. Mild left basilar atelectasis.
[2019-08-14] MEDS: Melatonin 3 MG TAB PO SCH (20:53)
[2019-08-14] MEDS: Acetaminophen 500 MG TAB PO PRN (21:02)
[2019-08-14] MEDS ORDERED: Cephalexin 250 MG CAP PO SCH (21:30)
[2019-08-14] MEDS: Diltiazem 125 MG in Sodium Chloride 0.9% 100 ML IVPB SCH (21:44)
[2019-08-15] MEDS: Levothyroxine Sodium 75 MCG TAB PO SCH (06:14)
[2019-08-15] MEDS: Famotidine 20 MG TAB PO SCH (10:01)
[2019-08-15] MEDS: Cephalexin 250 MG CAP PO SCH ×2 (10:01→17:15)
[2019-08-15] MEDS: Sacubitril 49 MG/Valsartan 51 MG TABLET PO SCH (10:02)
[2019-08-15] MEDS: Finasteride 5 MG TAB PO SCH (10:02)
[2019-08-15] MEDS: Polyethylene Glycol 3350 17 GM Packet PO PRN (10:03)
[2019-08-15] MEDS: Tamsulosin HCl 0.4 MG CAP PO SCH (10:03)
--- NOTE | 2019-08-15 12:58 | PDOC.CPN ---
- Subjective Date: 08/15/19 Time: 08:00 Interval history: EP PROGRESS NOTE: 08/14/19 Follow up for atrial fibrillation with difficult to control rates and BiV PPM with AVJ ablation on 08/13. No OAC with recent psoas muscle hematoma - Review of Systems General: denies: fever/chills, weight/appetite/sleep changes, night sweats, fatigue Respiratory: denies: cough, congestion, shortness of breath, exercise intolerance Cardiovascular: denies: chest pain, palpitation, edema, paroxysmal nocturnal dyspnea, orthopnea Gastrointestinal: denies: nausea, vomiting, diarrhea, constipation, abd pain, GI bleeding Musculoskeletal: denies: pain, tenderness, stiffness, swelling, arthritis/ arthralgias Neurological: denies: numbness, syncope, seizure, weakness - Objective Allergies/Adverse Reactions: Allergies Allergy/AdvReac Type Severity Reaction Status Date / Time ciprofloxacin [From Cipro] Allergy Verified 08/11/19 21:48 Penicillins Allergy Verified 08/11/19 21:48 Vttaneh-Una-Kte Reductase Allergy Verified 08/11/19 21:48 Inhibitor Sulfa (Sulfonamide Allergy Verified 08/11/19 21:48 Antibiotics) Visit Medications: Current Medications Acetaminophen (Tylenol) 1,000 mg PO Q6H PRN PRN Reason: Mild Pain (1-3) Last Admin: 08/14/19 21:02 Dose: 1,000 mg Cephalexin (Keflex) 500 mg PO TID [facility] Stop: 08/24/19 15:01 Last Admin: 08/15/19 10:01 Dose: 500 mg Famotidine (Pepcid) 20 mg PO 0900 [facility] Last Admin: 08/15/19 10:01 Dose: 20 mg Finasteride (Proscar) 5 mg PO DAILY [facility] Last Admin: 08/15/19 10:02 Dose: 5 mg Furosemide (Lasix) 20 mg PO DAILY PRN PRN Reason: swelling Hydralazine HCl (Apresoline) 10 mg SLOW IVP Q4H PRN PRN Reason: SBP > 180 and HR < 70 Levothyroxine Sodium (Synthroid) 75 mcg PO 0600 [facility] Last Admin: 08/15/19 06:14 Dose: 75 mcg Melatonin (Melatonin) 3 mg PO HS [facility] Last Admin: 08/14/19 20:53 Dose: 3 mg Metoprolol Succinate (Toprol Xl) 100 mg PO BID [facility] Last Admin: 08/15/19 10:03 Dose: 100 mg Ondansetron HCl (Zofran Odt) 4 mg PO Q6H PRN PRN Reason: Nausea/Vomiting Ondansetron HCl (Zofran) 4 mg IVP Q6H PRN PRN Reason: Nausea/Vomiting Polyethylene Glycol (Miralax) 17 gm PO DAILYPRN PRN PRN Reason: Constipation Last Admin: 08/15/19 10:03 Dose: 17 gm Sacubitril/Valsartan (Entresto 49 Mg-51 Mg Tablet) 1 tab PO BID [facility] Last Admin: 08/15/19 10:02 Dose: 1 tab Sodium Chloride (Flush - Normal Saline) 10 ml IVF Q12HR [facility] Last Admin: 08/15/19 10:03 Dose: 10 ml Sodium Chloride (Flush - Normal Saline) 10 ml IVF PRN PRN PRN Reason: Saline Flush Tamsulosin HCl (Flomax) 0.4 mg PO DAILY [facility] Last Admin: 08/15/19 10:03 Dose: 0.4 mg Vital Signs & Weight: Vital Signs Temp Pulse Resp BP Pulse Ox 08/15/19 11:15 97.6 F 63 16 124/66 95 08/15/19 07:58 98.3 F 66 16 102/59 L 95 08/15/19 04:00 98.2 F 61 16 116/56 L 95 Weight 142 lb 4.8 oz - Physical Exam General: alert & oriented x3, appears well, no apparent distress HEENT: mucus membranes moist, normocephaly Neck: supple neck, midline trachea, no JVD/HJR, no masses, no bruit, no lymphadenopathy, no thromegaly Cardiac: irregularly regular Lungs: clear to auscultation, normal breath sounds, normal exam, no wheeze, rales, rhonchi Neuro: cranial nerve 2-12 intact, grossly intact, motor function intact, sensory function intact, negative rhomberg, coordination normal, no lateralizing findings Abdomen: unremarkable, active bowel sounds, soft, no masses Extremities: no cyanosis, no clubbing, no edema Skin: other (PPM incision CDI. no drainage. no signs of infection. Right groin access site stable without hematoma) - Labs Result Diagrams: 08/13/19 18:05 08/13/19 18:05 Troponin/CKMB Troponin I Less than 0.010 ng/mL (< 0.028) 08/12/19 01:19 - Telemetry Supraventricular conduction: atrial fibrillation (A FIb/Flutter. [employer] pacing 60bpm) - Assessment/Plan Assessment/Plan: 1. Prs atrial fibrillation - difficult rate control - prior CV - declines AAD therapy 2. Indication for OAC -CHADS2-VASC >2 - hematoma of psoas muscle, OAC on hold 3. Tachy-mamie syndrome S/p AVJ ablation and BiV pacemaker implant. CXR and PPM check stable today. HRs controlled without breakthrough tachycardia. Continue post implant keflex x7 days. Do not resume OAC before 08/16. CCB stopped. Continue beta blockers per cardiology. 2 week wound check scheduled in [place] [facility] clinic.
[2019-08-15 16:03] VITALS: TEMP 98.4
[2019-08-15 16:57] VITALS: BP 133/75
--- NOTE | 2019-08-15 17:20 | PRG ---
DATE OF SERVICE: SUBJECTIVE: Mr. Vasquez is doing much better today. He recently underwent AV conor ablation. His heart rate is in the 60s. He is currently paced. He states he overall feels better. OBJECTIVE: VITAL SIGNS: Blood pressure 132/75, pulse 63, respirations 20. LUNGS: Clear to auscultation. HEART: Regular rate and rhythm. ABDOMEN: Soft, nontender, nondistended. EXTREMITIES: No edema. PERTINENT LABORATORY DATA: Hemoglobin 10.6. Creatinine is 1.14, albumin 2.9. IMPRESSION: 1. Acute on chronic systolic heart failure. 2. Coronary artery disease. 3. Status post bypass surgery. 4. Atrial fibrillation. 5. Status post pacemaker. RECOMMENDATIONS: 1. Discontinue IV Cardizem. 2. Continue metoprolol-XL 100 mg one p.o. b.i.d. and can increase if needed as blood pressure stable. 3. Continue Entresto. 4. Add Eliquis 2.5 mg one p.o. b.i.d. in a.m. and aspirin 81 q.a.m. Plan is to increase to 5 mg one p.o. b.i.d. of Eliquis in 3 to 4 weeks. Otherwise, I have no further recommendations. Plan is to follow up as an outpatient. I will be out of the office for next [address] Selam Cuba, who will be on-call this weekend for any further questions. Job ID: [id number]
--- NOTE | 2019-08-15 18:35 | DIS ---
DATE OF ADMISSION: 08/11/2019 DATE OF DISCHARGE: 08/15/2019 PRIMARY CARE PROVIDER: Dr. Renae Moore. DISCHARGE DIAGNOSES: 1. Atrial fibrillation with rapid ventricular response. 2. Cardiomyopathy. 3. Chronic systolic congestive heart failure, NYHA class 2. CONDITION OF PATIENT ON THE DAY OF DISCHARGE: Stable. I assessed Mr. Pedro Carroll on the day of discharge. He denies any chest pain or shortness of breath. Vital signs are stable. S1 and S2 are heard, regular. Lungs are clear to auscultation bilaterally. CONSULTATIONS DURING THIS HOSPITALIZATION: Cardiology, Dr. Auguste and Electrophysiology, Dr. Joseph. HOSPITAL COURSE: Mr. Pedro Carroll is a pleasant 89-year-old gentleman, who was admitted to [facility] on 08/11/2019, for atrial fibrillation with rapid ventricular response. Please refer to Dr. Espinosa's history and physical note dated 08/11/2019, for further details. He was seen by Cardiology and Electrophysiology Services. He was treated with Cardizem drip, with improvement in heart rate. He underwent AV conor ablation and pacemaker placement on 08/14/2019. 2D echocardiogram showed left ventricular ejection fraction of 45% to 50%, moderately dilated left atrium, moderate mitral regurgitation, sclerotic aortic valve with normal excursion and moderate tricuspid regurgitation. Pulmonary artery pressure was normal. He continued to improve clinically. Electrophysiology Service recommended starting his oral anticoagulation not before 08/16. Because of psoas bleed in the past, Cardiology Service recommended Eliquis 2.5 mg 2 times a day. DISCHARGE MEDICATIONS: He has been started on Keflex 500 mg 3 times a day. He is also being started on Eliquis 2.5 mg 2 times a day starting 08/16/2019. Otherwise, no change was made to his pre-admission home medications as dictated on history and physical note by Dr. Espinosa, dated 08/11/2019. Many thanks for allowing me to participate in your patient's care. Please feel free to contact me with any questions or concerns. DISCHARGE DESTINATION: Home. TIME SPENT: Total amount of time spent coordinating this discharge: 20 minutes. Job ID: [id number]
[2019-08-16] MEDS ORDERED: Aspirin 81 mg Enteric Coated Tablet PO SCH (09:00)
[2019-08-16] MEDS ORDERED: Apixaban 2.5 MG TAB PO SCH (09:00)
--- NOTE | 2019-08-16 22:05 | PQF ---
AMA WINCHESTER,BASIL TIWARI MD [id number] CLINICAL DOCUMENTATION CLARIFICATION FORM: POST DISCHARGE Addendum to original discharge summary date: ____ Late entry note date: __ DATE: 08/16/19 ATTN: Basil Rosario Please exercise your independent, professional judgment in responding to the clarification form. Clinical indicators are provided on the bottom of this form for your review Based on your clinical knowledge can you please clarify what the patient actually has. Please check appropriate box(s): Conflicting documentation was noted in the Medical Record, please clarify if patient is being treated/monitored for: [ ] Acute on chronic systolic jayden failure [ ] Chronic systolic jayden failure [ ] Other diagnosis please specify [ ] Unable to determine In addition, please specify: Present on Admission (POA): [ ] Yes [ ] No [ ] Unable to determine For continuity of documentation, please document condition throughout progress notes and discharge summary. Thank You. CLINICAL INDICATORS - SIGNS / SYMPTOMS/ LABS PN 08/15 Dr. Auguste pg.1- acute on chronic systolic jayden failure DS 08/15 pg.1- Chronic systolic heart failure, NYHA class 2 H and P pg.3- BNP 919, previously noted 552 on 07/22/2019 RISK FACTORS Cardiomyopathy- H and P pg.1 Atrial fibrillation- H and P pg.1 Hyperlipidemia- H and P pg.1 Hypothyroidism- H and P pg.1 CAD- H and P pg.2 Hypertension- H and P pg.[address] Perales Pacemaker placement 08/14 Echocardiogram- 08/14 Furosemide (Lasix 20mg PO)- DEC 10 (This form is maintained as a part of the permanent medical record) 2014 [employer]. All Rights Reserved [email or web address] [not provided] KEN
--- NOTE | 2019-08-18 16:15 | EKG ---
Test Reason : POST OP Blood Pressure : / mmHG Vent. Rate : 063 BPM Atrial Rate : 063 BPM P-R Int : 080 ms QRS Dur : 130 ms QT Int : 532 ms P-R-T Axes : 000 044 239 degrees QTc Int : 544 ms Electronic ventricular pacemaker Confirmed by DR. Jon NEVAREZ ([id number]) on 08/18/2019 4:14:59 PM Referred By: Confirmed By:DR. Jon NEVAREZ
== END 2019-08-15 17:45 | disposition home health service (06) | DRG 242 ==
LOC: SCSER 18:32 → 2NO 19:42
PROVIDERS: ADMIT Internal Medicine; ATTEND Internal Medicine
PROC: 3E02340 Introduction of Influenza Vaccine into Muscle, Percutaneous Approach (ICD-10-PCS; 2019-08-12)
PROC: 0JH606Z Insertion of Pacemaker, Dual Chamber into Chest Subcutaneous Tissue and Fascia, Open Approach (ICD-10-PCS; principal; 2019-08-14)
PROC: 02HK3JZ Insertion of Pacemaker Lead into Right Ventricle, Percutaneous Approach (ICD-10-PCS; 2019-08-14)
PROC: 02583ZZ Destruction of Conduction Mechanism, Percutaneous Approach (ICD-10-PCS; 2019-08-14)
PROC: 02HL3JZ Insertion of Pacemaker Lead into Left Ventricle, Percutaneous Approach (ICD-10-PCS; 2019-08-14)
PROC: 02H63JZ Insertion of Pacemaker Lead into Right Atrium, Percutaneous Approach (ICD-10-PCS; 2019-08-14)
PROC: 02K83ZZ Map Conduction Mechanism, Percutaneous Approach (ICD-10-PCS; 2019-08-14)
PROC: 4A023FZ Measurement of Cardiac Rhythm, Percutaneous Approach (ICD-10-PCS; 2019-08-14)
PROC: 4A0234Z Measurement of Cardiac Electrical Activity, Percutaneous Approach (ICD-10-PCS; 2019-08-14)
DX: I48.19 Other persistent atrial fibrillation (principal); I50.23 Acute on chronic systolic (congestive) heart failure; Z23 Encounter for immunization; I08.1 Rheumatic disorders of both mitral and tricuspid valves; I48.0 Paroxysmal atrial fibrillation; E78.00 Pure hypercholesterolemia, unspecified; E78.5 Hyperlipidemia, unspecified; I25.5 Ischemic cardiomyopathy; E03.9 Hypothyroidism, unspecified; I25.10 Atherosclerotic heart disease of native coronary artery without angina pectoris; D64.9 Anemia, unspecified; D69.6 Thrombocytopenia, unspecified; I49.5 Sick sinus syndrome; I11.0 Hypertensive heart disease with heart failure; Z95.1 Presence of aortocoronary bypass graft; Z88.0 Allergy status to penicillin; Z88.1 Allergy status to other antibiotic agents; Z88.2 Allergy status to sulfonamides; Z88.8 Allergy status to other drugs, medicaments and biological substances; Z79.890 Hormone replacement therapy; Z79.899 Other long term (current) drug therapy
CPT/HCPCS: 33208; 33225; 36005; 36415; 71045; 75820; 76942; 80048; 80053; 82550; 83735; 83880; 84484; 85007; 85025; 85027; 93005; 93010; 93306; 93613; 96365; 96366; C1732; C1769; C1882; C1898; J1160; J1265; J1644; J1956; J2001; J2370; J2704; J3490; Q9967

== ENCOUNTER 2019-09-09 09:55 | Day surgery (SDC) | payer MEDICARE, BC ==
[2019-09-06 13:39] VITALS: BMI 21.5
[~2019-09-09 09:55] MED LIST: PHENYLEPHRINE-NS 100 MCG/ML 10 ML SYRINGE ONE; PROPOFOL 200 MG/20 ML VIAL ONE; ePHEDrine/0.9% NaCl/PF SYRINGE 50 mg/10 ml ONE
[2019-09-09 10:03] LABS: INR-International Normal Ratio 1.6; PTT 37.4 SEC (22.9-36.1); Prothrombin Time 18.6 SEC (12.0-14.7)
[2019-09-09 10:06] LABS: #Eosinphils 0.2 thou/uL (0.0-0.7); #Lymphocytes 1.4 thou/uL (1.20-3.40); #Monocytes 0.7 thou/uL (0.11-0.59); #Neutrophils 2.8 thou/uL (1.40-6.50); %Basophils 0.3 % (0.0-1.0); %Eosinophils 3.7 % (0.0-10.0); %Lymphocytes 26.8 % (21.0-51.0); %Monocytes 13.1 % (0.0-10.0); Hemoglobin 10.8 g/dL (14.0-18.0); Mean Corpuscular HGB CONC 31.8 g/dL (32.0-36.0); Mean Corpuscular Hemoglobin 30.2 pg (27.0-31.0); Mean Corpuscular Volume 95.1 fL (78.0-98.0); Mean Platelet Volume 9.6 fL (7.4-10.4); Platelet Count 96 thou/uL (130-400); RBC Distribution Width 15.6 % (11.5-14.5); Red Blood Cell (RBC) Count 3.56 mill/uL (4.70-6.10)
[2019-09-09 10:12] LABS: Anion Gap 12 mmol/L (10-20); BUN (Urea Nitrogen) 13 mg/dL (8.4-25.7); Calc. Creatinine Clearance 45 mL/min (70-130); Calcium 9.5 mg/dL (7.8-10.44); Carbon Dioxide 27 mmol/L (23-31); Chloride 106 mmol/L (98-107); Estimated GFR-MDRD 64; Glucose 90 mg/dL (83-110); Sodium 141 mmol/L (136-145)
[2019-09-09] MEDS ORDERED: Iopamidol 370 76% 50 ML VIAL FS ONE (10:46)
[2019-09-09] MEDS ORDERED: Lidocaine 1% (PF) 30 ML VIAL ONE (11:11)
[2019-09-09] MEDS ORDERED: Levofloxacin 500 mg/D5W 100 ml Premix Bag ONE (11:12)
[2019-09-09] MEDS ORDERED: Clindamycin/D5W 900 mg/50 ml Premix Bag ONE (11:12)
[2019-09-09] MEDS ORDERED: Heparin (Artline) 500 ML ONE (11:38)
[2019-09-09] MEDS ORDERED: Fentanyl 100 MCG/2 ML VIAL ONE (11:48)
[2019-09-09] MEDS ORDERED: Propofol 500 MG/50 ML VIAL ONE (12:23)
[2019-09-09] MEDS ORDERED: DOPamine 400 MG/D5W 250 ML 250 ML ONE (14:39)
[2019-09-09] MEDS ORDERED: Heparin 10,000 UNITS/1 ML VIAL ONE (14:39)
--- NOTE | 2019-09-09 17:03 | RAD ---
XR Chest 1 View Portable History: Postop pacemaker Comparison: Radiograph August 14, 2019 Findings: 3-lead pacer appears relatively similar. Mild pulmonary edema. Small effusions. Heart size is enlarged. No pneumothorax. No acute osseous abnormality. Impression: Mild decompensated congestive heart failure. No pneumothorax.
--- NOTE | 2019-09-09 21:22 | OP ---
DATE OF PROCEDURE: 09/09/2019 PROCEDURES PERFORMED: Electrophysiology study and radiofrequency ablation of the AV node. REASON FOR PROCEDURE: Mr. Vasquez is an 89-year-old man with history of persistent atrial fibrillation. He underwent AV conor ablation. He has pacing Bi-V pacemaker placement back in August, but subsequently the LV pacing threshold has markedly increased. He is here for a redo AV conor ablation and His bundle lead extraction and reimplantation. DESCRIPTION OF PROCEDURE: The patient received deep sedation by Anesthesia specialist. After adequate level of sedation achieved, the right femoral venous area was prepped, draped, and anesthetized using subcutaneous lidocaine. Under ultrasound guidance, the right femoral vein was cannulated. An 8-Italian short sheath was introduced, through which a [employer] SFST catheter was advanced to the right atrium with carefully avoiding to damage the pre-existing leads. Right atrial map was performed, delineating the His bundle, CS, and RV locations. Measurement of the HV interval was performed at 46 milliseconds. Subsequently, the 3D map was used to reposition the LV lead and see separate report. After the reposition of LV lead was complete, the AV conor ablation was performed using a total of 2 ablations at 1 minute and 54 seconds. We were able to achieve complete AV block with AV junctional escape rhythm noted at 35 beats per minute. Dopamine was administered at this time and the AV block persisted. The pre-existing leads were functioning adequately. the sheaths and the catheter was pulled in the aquatic life laborer and no complications noted. CONCLUSION: 1. Successful AV conor ablation. 2. His pacing lead reimplantation, please see separate report. Job ID: [id number] [facility]
== END 2019-09-09 19:05 ==
LOC: CCL 09:55
PROVIDERS: ATTEND Internal Medicine Cardiovascular Disease
PROC: 4A023FZ Measurement of Cardiac Rhythm, Percutaneous Approach (ICD-10-PCS; principal; 2019-09-09)
PROC: 4A0234Z Measurement of Cardiac Electrical Activity, Percutaneous Approach (ICD-10-PCS; 2019-09-09)
PROC: 02583ZZ Destruction of Conduction Mechanism, Percutaneous Approach (ICD-10-PCS; 2019-09-09)
PROC: 02K83ZZ Map Conduction Mechanism, Percutaneous Approach (ICD-10-PCS; 2019-09-09)
PROC: 02HK0JZ Insertion of Pacemaker Lead into Right Ventricle, Open Approach (ICD-10-PCS; 2019-09-09)
PROC: 02PA3MZ Removal of Cardiac Lead from Heart, Percutaneous Approach (ICD-10-PCS; 2019-09-09)
DX: I48.19 Other persistent atrial fibrillation (principal); T82.897A Other specified complication of cardiac prosthetic devices, implants and grafts, initial encounter; I48.3 Typical atrial flutter; I25.5 Ischemic cardiomyopathy; I10 Essential (primary) hypertension; E78.5 Hyperlipidemia, unspecified; I25.10 Atherosclerotic heart disease of native coronary artery without angina pectoris; Z79.01 Long term (current) use of anticoagulants; Z79.899 Other long term (current) drug therapy; Z88.0 Allergy status to penicillin; Z88.1 Allergy status to other antibiotic agents; Z88.2 Allergy status to sulfonamides; Z95.1 Presence of aortocoronary bypass graft
CPT/HCPCS: 33224; 33235; 36005; 71045; 75820; 76942; 80048; 85025; 85610; 85730; 93005; 93010; 93613; 93623; 93650; C1732; C1769; C1898; J1265; J1644; J1956; J2001; J2704; J3010; J3490